=== PATIENT | male | born 1955 | race Caucasian/White ===

== ENCOUNTER 2021-05-30 11:35 | Outpatient (CLI) | payer OTHER, SELFPAY ==
[2021-05-30 18:48] LABS: Basophils Absolute Auto 0.1 K/mm3 (0.0-0.1); Basophils Percent Auto 0.6 % (0.2-1.2); Eosinophils Absolute Auto 0.2 K/mm3 (0-0.3); Eosinophils Percent Auto 2.2 % (0-4.4); Hematocrit 45.8 % (42.0-52.0); Hemoglobin 14.5 g/dL (14.0-18.0); Immature Granulocyte Absolute 0.04 K/mm3 (0.00-0.031); Immature Granulocyte Percent A 0.5 % (0-0.5); Lymphocytes Absolute Auto 1.68 K/mm3 (0.9-3.2); Lymphocytes Percent Auto 19.7 % (18.3-44.2); Mean Corpuscular HGB Conc 31.7 g/dl (32-36); Mean Corpuscular Hemoglobin 29.2 pg (26-34); Mean Corpuscular Volume 92.2 fl (80-100); Mean Platelet Volume 9.9 fl (7.4-10.4); Monocytes Absolute Auto 0.6 K/mm3 (0.1-0.6); Monocytes Percent Auto 7.4 % (2.6-8.5); Neutrophils Absolute Auto 5.9 K/mm3 (1.3-6.7); Neutrophils Percent Auto 69.6 % (45.5-73.1); Platelet Count Result 291 k/mm3 (150-375); Red Blood Count 4.97 M/mm3 (4.6-6.20); Red Cell Distribution Width 17.3 % (11.5-14.5); White Blood Count 8.5 K/mm3 (4.5-10.0)
[2021-05-30 20:15] LABS: Alanine Aminotransferase 23 U/L (4-50); Albumin Level 4.1 g/dL (3.5-5.1); Alkaline Phosphatase 98 U/L (38-126); Anion Gap 8 mmol/L (8-16); Aspartate Amino Transferase 23 U/L (17-59); Bilirubin,Total 0.5 mg/dL (0.2-1.3); Blood Urea Nitrogen 15 mg/dL (9-20); Calcium 9.6 mg/dL (8.4-10.2); Carbon Dioxide 25 mmol/L (22-30); Chloride 108 mmol/L (98-107); Cholesterol 157 mg/dL (0-200); Estimated Glomerular Filt Rate > 60; Glucose 119 mg/dL (65-110); HDL Direct 47 mg/dL; Potassium 4.5 mmol/L (3.4-5.0); Sodium 141 mmol/L (137-145); Triglycerides 99 mg/dL (<150)
[2021-05-30 20:22] LABS: LDL Cholesterol Direct 80 mg/dL
[2021-05-30 20:38] LABS: Prostate Specific Antigen 0.3 ng/mL (< OR = 4.0)
[2021-05-30 22:03] LABS: Hemoglobin A1C 5.9 % (<5.7)
== END 2021-05-30 11:36 | disposition home or self-care (01) ==
LOC: ANHBWCLAB 11:37
PROVIDERS: PCP Family Medicine; Visit Provider Family Medicine
DX: G47.33 Obstructive sleep apnea (adult) (pediatric) (principal); R26.89 Other abnormalities of gait and mobility; J44.9 Chronic obstructive pulmonary disease, unspecified; R42 Dizziness and giddiness
CPT/HCPCS: 36415; 80053; 80061; 83036; 84153; 85025; G0103

== ENCOUNTER 2021-06-20 10:42 | Outpatient (CLI) | payer OTHER, SELFPAY ==
--- NOTE | ~2021-06-20 | CT_ITS ---
EXAMINATION: CT brain wo con DATE: 06/20/2021 11:27 INDICATION: Unspecified fall, initial encounter. Headache and dizziness. TECHNIQUE: Computed tomography (CT) of the head was performed without intravenous contrast. The mA wa s adjusted according to patient size. Iterative reconstruction technique was employed. The dose-lengt h product was 681.00 mGy-cm. COMPARISON: None FINDINGS: There is no intracranial hemorrhage, acute infarction, or abnormal intracranial mass lesion . The ventricles are normal in size. There are likely changes of ocular lens replacement surgeries. T here is mild mucosal thickening in the ethmoid sinuses. The mastoid air cells are normal. IMPRESSION: 1. Normal brain. Reviewed, dictated and finalized at location A. IMPRESSION: 1. Normal brain.
== END 2021-06-20 10:43 | disposition home or self-care (01) ==
LOC: ANHIMG 10:45
PROVIDERS: PCP Family Medicine; Visit Provider Family Medicine
DX: R42 Dizziness and giddiness (principal); G47.33 Obstructive sleep apnea (adult) (pediatric); J44.9 Chronic obstructive pulmonary disease, unspecified; Z00.00 Encounter for general adult medical examination without abnormal findings; R26.89 Other abnormalities of gait and mobility
CPT/HCPCS: 70450

== ENCOUNTER 2021-08-28 09:05 | Outpatient (CLI) | payer OTHER, SELFPAY ==
--- NOTE | 2021-08-28 12:54 | WPDPFTINT ---
PFT Procedure Performed PFT Procedure Performed Spirometry with Pre/Post Bronchodilator Plethysmography (Lung Vol) Diffusing Cap (DLCO) Flow Vol Loop PFT Interpretation This is a pulmonary function test with pre and post-bronchodilator spirometry, plethysmography and diffusing capacity. The test was performed and results interpreted in accordance with the 2019 and 2005 ATS/ERS Task Force guidelines respectively using the Global Lung Function Initiative-2012 reference equations. Patient demonstrated good effort and cooperation. Reproducibility criteria were met. The quality of the pre bronchodilator spirometry maneuver was Grade A and post bronchodilator spirometry maneuver was Grade A. Findings: Spirometry: the contour the inspiratory and expiratory flow tracing are normal. The pre bronchodilator FVC is 4.20 L, 69% predicted. The pre bronchodilator FEV1 is 3.19 L, 70% predicted. The FEV1: FVC ratio 76%. Post bronchodilator FVC is 4.46 L, representing a 6% increase. The post bronchodilator FEV1 is 3.19 L, representing no change. The post bronchodilator FEV1: FVC ratio 71%. Plethysmography: The total lung capacity is 6.62 L, 75% predicted. The functional residual capacity is 2.83 L, 59% predicted. The residual volume is 2.20 L, 78% predicted. Diffusing capacity: The absolute diffusion capacity is 17.6, 56% predicted. The diffusing capacity corrected for alveolar volume is 3.24, 89% predicted. Impression: There is a mild restrictive ventilatory abnormality. The spirometry is normal without evidence of an obstructive abnormality. There is no significant improvement after inhaling a single dose of albuterol. The absolute diffusing capacity is moderately decreased and normalizes when corrected for alveolar volume. There are no prior studies for comparison
--- NOTE | 2021-08-28 12:56 | WPDSIXMINUTE ---
Six Minute Walk Procedure Procedure Performed Pulmonary Stress Test (6 min walk) Six Minute Walk This is a 6 minute walk test. The test was performed and interpreted in accordance with the 2014 ERS/ATS task force guidelines. Findings: The patient's resting room air oxygen saturation measured by pulse oximetry was 95% and her heart rate was 84 bpm. Patient ambulated for 366 meters and oxygen saturation remained 94 to 96%. Heart rate at the end of the study was 95 bpm. The patient did not qualify for supplemental oxygen at rest or with ambulation. There are no prior studies for comparison.
== END 2021-08-28 09:06 | disposition home or self-care (01) ==
LOC: ANHPFT 09:08
PROVIDERS: PCP Family Medicine; Visit Provider Internal Medicine Pulmonary Disease
DX: G47.34 Idiopathic sleep related nonobstructive alveolar hypoventilation (principal); J44.9 Chronic obstructive pulmonary disease, unspecified
CPT/HCPCS: 94060; 94200; 94618; 94726; 94729

== ENCOUNTER 2022-01-09 09:34 | Outpatient (CLI) | payer OTHER, SELFPAY ==
--- NOTE | ~2022-01-09 | CT_ITS ---
EXAMINATION: CT lumbar spine w con EXAM DATE: 01/09/2022 10:15 INDICATION: Low back pain. TECHNIQUE: Spiral CT lumbar spine w con was performed following intravenous injection of 100 mL Omnip aque 350 (the same injection used with cervical CT obtained at same time). Axial, coronal and sagitta l images were reviewed. The dose-length product (DLP) for this examination was 984.20 mGy-cm. The e xposure was tailored according to patient size (auto mA exposure control), and iterative reconstructi on (ASIR) was used as additional dose reduction technique. There is no prior study for comparison. FINDINGS: There are no acute fractures identified. There is mild to moderate disc disease L-1-2, mil d at the other lumbar levels. There is 2 mm anterolisthesis L3 on L4. The vertebral bodies are otherw ise aligned. There are no acute fractures identified. Minimal lumbar levocurvature. Mild abdominal ao rtic ectasia. There are no osteoblastic or osteolytic lesions identified. Intact sacroiliac joints. Level by level evaluation: T12-L1: There is a minimal diffuse disc bulge. Facet arthropathy: Mild. Neural foraminal stenosis: No stenosis. Central canal stenosis: No stenosis. L1-L2: There is a mild to moderate diffuse disc bulge. Facet arthropathy: Mild. Neural foraminal stenosis: No stenosis. Central canal stenosis: No stenosis. L2-L3: There is a mild diffuse disc bulge. Facet arthropathy: Mild to moderate. Neural foraminal stenosis: No stenosis. Central canal stenosis: No stenosis. L3-L4: There is a mild diffuse disc bulge. Facet arthropathy: Moderate to severe. Neural foraminal stenosis: Mild to moderate left, mild right. Central canal stenosis: Mild to moderate. L4-L5: There is a mild diffuse disc bulge. Facet arthropathy: Moderate. Neural foraminal stenosis: Mild to moderate bilateral. Central canal stenosis: Mild to moderate. L5-S1: There is a mild diffuse disc bulge. Facet arthropathy: Mild to moderate. Neural foraminal stenosis: No stenosis. Central canal stenosis: No stenosis. IMPRESSION: 1. Mild L3-4 moderate to severe disc disease. 2. Otherwise overall mild to moderate lumbar spondylosis. 3. No acute findings. Reviewed, dictated and finalized at location B.
--- NOTE | ~2022-01-09 | CT_ITS ---
. EXAMINATION: CT cervical spine w con DATE: 01/09/2022 10:16 INDICATION: Cervical disc degeneration without myelopathy or radiculopathy. TECHNIQUE: Computed tomography (CT) of the cervical spine was performed with 100 mL Omnipaque 350 int ravenous contrast. Automated exposure control and iterative reconstruction technique were employed. T he dose-length product was 475.75 mGy-cm. COMPARISON: None FINDINGS: There is mild scarring at the lung apices. There is 6 degrees dextrocurvature of cervical t horacic spine. There is 2 mm retrolisthesis of C3 on C4. There is kyphosis at C5-C6. There are change s of anterior fusion procedure from C5 to C7 with interbody bone graft and anterior plate and screws. There is a benign bone island in T1 vertebral body. There is an implant at the right C5-C6 facet americo nt with ankylosis of the joint. There is an implant in the left C5 lateral mass with ankylosis of the C5-C6 facet joint. There is severely decreased disc height at C2-C3 and C3-C4 and moderately decreas ed disc height at C4-C5. The following disc levels are specifically discussed: C2-C3: There is severe bilateral uncovertebral joint osteoarthritis. There is moderate right and mild left facet joint osteoarthritis. There is moderate right and mild left neural foraminal stenosis. Th ere is mild central canal stenosis. C3-C4: There is moderate right and severe left uncovertebral joint osteoarthritis. There is mild late ral facet joint osteoarthritis. There is mild right and moderate left neural foraminal stenosis. Ther e is mild central canal stenosis. C4-C5: There is severe bilateral uncovertebral joint osteoarthritis. There is mild bilateral facet leigh int osteoarthritis. There is moderate right and mild left neural foraminal stenosis. There is mild ce ntral canal stenosis. C5-C6: There is no uncovertebral joint hypertrophy. There is no facet joint hypertrophy. There is no neural foraminal stenosis. There is no central canal stenosis. C6-C7: There is moderate bilateral uncovertebral joint hypertrophy. There is mild bilateral facet americo nt osteoarthritis. There is mild bilateral neural foraminal stenosis. There is mild central canal rosemary nosis. C7-T1: There is mild bilateral uncovertebral joint osteoarthritis. There is moderate right and severe left facet joint osteoarthritis. There is mild left neural foraminal stenosis. There is no central c anal stenosis. IMPRESSION: 1. Severe cervical spondylosis. 2. Anterior fusion procedure from C5 to C7. Reviewed, dictated and finalized at location A.
--- NOTE | ~2022-01-09 | XR_ITS ---
XR lumbar spine 2-3V DATE: 01/09/2022 09:58 INDICATION: Back pain. Degenerative disc. TECHNIQUE: AP, lateral, coned lateral lumbosacral views COMPARISON: None FINDINGS: There is moderately severe degenerative disease at L1-2. There is mild degenerative disease at L2-3 and L3-4. There is minimal anterolisthesis at L3-4. No lumbar spine fracture or bone destruction is evident. The lumbar pedicles are intact. The sacroiliac joints are normal. Surgical clips, right upper quadrant, likely due to cholecystectomy. Prominent amount of fecal material in the colon. IMPRESSION: Moderately severe degenerative disc disease at L1 to, mild degenerative disc disease at L 2-3 and L3-4 Minimal anterolisthesis at L3-4 Reviewed, dictated and finalized at location A. IMPRESSION: Moderately severe degenerative disc disease at L1 to, mild degenera tive disc disease at L2-3 and L3-4 Minimal anterolisthesis at L3-4
--- NOTE | ~2022-01-09 | XR_ITS ---
EXAMINATION: XR_CERV2-3V_CR DATE: 01/09/2022 09:58 INDICATION: Cervical spinal stenosis. Posterior neck pain. TECHNIQUE: 3 views of cervical spine were obtained. COMPARISON: CT cervical spine 01/09/2022 FINDINGS: There is 2 mm retrolisthesis of C3 on C4 and C4 on C5. There is focal kyphosis at C5-C6. Th ere are changes of anterior fusion procedure from C5 to C7 with interbody bone graft and anterior krista te and screws. There is an implant in right C5-C6 facet joint . There is an implant in left C5 latera l mass. There is severely decreased disc height at C2-C3 and C3-C4 and moderately decreased disc heig ht at C4-C5. There is multilevel mild facet joint osteoarthritis. There is mild central canal stenosi s at C3-C4 and C4-C5 and C6-C7. No prevertebral soft tissue swelling. IMPRESSION: 1. Severe cervical spondylosis. 2. Anterior fusion procedure from C5 to C7. Reviewed, dictated and finalized at location A.
[2022-01-09 10:06] LABS: Estimated Glomerular Filt Rate > 60
== END 2022-01-09 09:35 | disposition home or self-care (01) ==
LOC: ANHIMG 09:39
PROVIDERS: PCP Family Medicine
DX: M50.321 Other cervical disc degeneration at C4-C5 level (principal); M47.812 Spondylosis without myelopathy or radiculopathy, cervical region; M48.02 Spinal stenosis, cervical region; M51.36 Other intervertebral disc degeneration, lumbar region; M47.816 Spondylosis without myelopathy or radiculopathy, lumbar region; M51.37 Other intervertebral disc degeneration, lumbosacral region; Z98.1 Arthrodesis status
CPT/HCPCS: 36415; 72040; 72100; 72126; 72132; 74019; 83036; Q9967

== ENCOUNTER 2022-01-09 14:12 | Outpatient (CLI) | payer OTHER, SELFPAY ==
--- NOTE | ~2022-01-09 | XR_ITS ---
XR abdomen obstructive series DATE: 01/09/2022 14:30 INDICATION: Constipation TECHNIQUE: Supine and upright AP views COMPARISON: None FINDINGS: There is bilateral excretion of contrast material by Sarah the kidneys, without hydronephrosi s. The renal collecting systems, ureters and urinary bladder appear normal. There is a prominent amount of fecal material within the colon. No bowel obstruction is noted. The psoas shadows are intact. No visceromegaly is evident. Surgical clips, right upper quadrant, consistent with cholecystectomy. Cardiomegaly. Right atrial and ventricular pacemaker leads. IMPRESSION: Prominent amount fecal material in the colon; no evidence of bowel obstruction Reviewed, dictated and finalized at Location A. Reviewed, dictated and finalized at location A.
[2022-01-09 19:58] LABS: Hemoglobin A1C 5.6 % (<5.7)
== END 2022-01-09 14:13 | disposition home or self-care (01) ==
LOC: ANHBWCLAB 14:13
PROVIDERS: PCP Family Medicine; Visit Provider Family Medicine
DX: R73.03 Prediabetes (principal); K59.00 Constipation, unspecified
CPT/HCPCS: 36415; 74019; 83036

== ENCOUNTER 2022-03-17 08:21 | Outpatient (CLI) | payer OTHER, SELFPAY ==
--- NOTE | 2022-03-17 13:14 | WPDSIXMINUTE ---
Six Minute Walk Procedure Procedure Performed Pulmonary Stress Test (6 min walk) Six Minute Walk Six Minute Walk: This 6 minute walk test was carried out with the patient breathing ambient air. The pre walk oxyhemoglobin saturation was 94%. The patient walked over a 213 m with no pauses during testing. During the walk the oxyhemoglobin saturation remained 92% or higher. The perceived dyspnea was 3 on the Viji scale at baseline and increased to 4 at the end of the test. Impression: No evidence of oxyhemoglobin desaturation on this testing.
== END 2022-03-17 08:22 | disposition home or self-care (01) ==
LOC: ANHPFT 08:22
PROVIDERS: PCP Family Medicine; Visit Provider Physician Assistant
DX: J44.9 Chronic obstructive pulmonary disease, unspecified (principal); R06.02 Shortness of breath
CPT/HCPCS: 94618

== ENCOUNTER 2022-04-10 13:37 | Outpatient (CLI) | payer OTHER, SELFPAY | END 2022-04-10 13:38 | disposition home or self-care (01) | LOC: ANHBWCLAB 13:38 | PROVIDERS: PCP Family Medicine; Visit Provider Family Medicine | DX: K21.9 Gastro-esophageal reflux disease without esophagitis (principal) | CPT/HCPCS: 36415; 82607 ==

== ENCOUNTER 2022-04-13 20:36 | Emergency (ER) | payer OTHER, SELFPAY ==
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
[2022-04-13 20:45] VITALS: BP 137/82; PULSE 64; RESP 18; TEMP 36.5; O2SAT 95
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
[2022-04-14] MEDS: HYDROcodone/acetaminophen (*CRX) 5-325 MG TABLET 1 TAB PO
[2022-04-14 00:36] VITALS: BP 128/99; PULSE 73; RESP 18; O2SAT 94
== END 2022-04-14 00:27 | disposition home or self-care (01) ==
PROVIDERS: Emergency Provider Emergency Medicine; PCP Family Medicine
DX: S16.1XXA Strain of muscle, fascia and tendon at neck level, initial encounter (principal); I25.10 Atherosclerotic heart disease of native coronary artery without angina pectoris; J44.9 Chronic obstructive pulmonary disease, unspecified; Z86.718 Personal history of other venous thrombosis and embolism; E78.5 Hyperlipidemia, unspecified; R73.03 Prediabetes; Z95.0 Presence of cardiac pacemaker; Z98.1 Arthrodesis status; M50.30 Other cervical disc degeneration, unspecified cervical region; M51.36 Other intervertebral disc degeneration, lumbar region; V49.50XA Passenger injured in collision with unspecified motor vehicles in traffic accident, initial encounter
CPT/HCPCS: 72125; 72128; 72131; 99284; A9270; L0140

== ENCOUNTER 2022-05-15 12:08 | Outpatient (CLI) | payer OTHER, SELFPAY ==
[2022-05-15 19:06] LABS: Add Urine Microscopic? YES; Appearance Urine Clear (Clear); Bilirubin Urine Negative (Negative); Blood Urine Negative (Negative); Color Urine Yellow (Yellow); Glucose Urine UA Negative (Negative); Ketones Urine Negative (Negative); Leukocyte Esterase Ur Trace LEU/UL (NEGATIVE); Nitrate Urine Negative (Negative); Protein Urine Negative (Negative); Specific Grav Ur 1.025 (1.001-1.035); Urobilinogen Urine 0.2 mg/dL (<2.0)
[2022-05-15 19:13] LABS: Mucus Urine Few /lpf; Squamous Epithelial Cell Urine Rare /hpf (Few)
[2022-05-15 19:14] LABS: Basophils Absolute Auto 0.1 K/mm3 (0.0-0.1); Basophils Percent Auto 0.5 % (0.2-1.2); Eosinophils Absolute Auto 0.2 K/mm3 (0-0.3); Eosinophils Percent Auto 1.4 % (0-4.4); Hemoglobin 16.2 g/dL (14.0-18.0); Immature Granulocyte Absolute 0.06 K/mm3 (0.00-0.031); Immature Granulocyte Percent A 0.5 % (0-0.5); Lymphocytes Absolute Auto 2.82 K/mm3 (0.9-3.2); Lymphocytes Percent Auto 22.3 % (18.3-44.2); Mean Corpuscular HGB Conc 31.8 g/dl (32-36); Mean Corpuscular Hemoglobin 30.9 pg (26-34); Mean Corpuscular Volume 97.3 fl (80-100); Mean Platelet Volume 9.2 fl (7.4-10.4); Monocytes Absolute Auto 0.9 K/mm3 (0.1-0.6); Neutrophils Absolute Auto 8.6 K/mm3 (1.3-6.7); Neutrophils Percent Auto 68.3 % (45.5-73.1); Platelet Count Result 251 k/mm3 (150-375); Red Blood Count 5.24 M/mm3 (4.6-6.20); Red Cell Distribution Width 14.8 % (11.5-14.5); White Blood Count 12.6 K/mm3 (4.5-10.0)
[2022-05-15 19:37] LABS: Alanine Aminotransferase 27 U/L (6-50); Alkaline Phosphatase 120 U/L (38-126); Anion Gap 5 mmol/L (8-16); Aspartate Amino Transferase 77 U/L (17-59); Bilirubin,Total 0.6 mg/dL (0.2-1.3); Blood Urea Nitrogen 15 mg/dL (9-20); Calcium 9.3 mg/dL (8.4-10.2); Carbon Dioxide 32 mmol/L (22-30); Chloride 100 mmol/L (98-107); Cholesterol 137 mg/dL (0-200); Estimated Glomerular Filt Rate > 60; Glucose 80 mg/dL (65-110); HDL Direct 38 mg/dL; Potassium 4.3 mmol/L (3.4-5.0); Sodium 137 mmol/L (137-145); Triglycerides 160 mg/dL (<150)
[2022-05-15 19:50] LABS: LDL Cholesterol Direct 60 mg/dL
[2022-05-15 20:09] LABS: Prostate Specific Antigen 0.5 ng/mL (< OR = 4.0)
== END 2022-05-15 12:09 | disposition home or self-care (01) ==
LOC: ANHBWCLAB 12:09
PROVIDERS: PCP Family Medicine; Visit Provider Family Medicine
DX: Z12.5 Encounter for screening for malignant neoplasm of prostate (principal); R42 Dizziness and giddiness; R26.89 Other abnormalities of gait and mobility
CPT/HCPCS: 36415; 80053; 80061; 81001; 84153; 85025; G0103

== ENCOUNTER → 2022-06-11 16:24 | Outpatient (CLI) | payer OTHER, SELFPAY ==
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
== END ==
PROVIDERS: PCP Family Medicine; Visit Provider Family Medicine
DX: R07.81 Pleurodynia (principal); M54.6 Pain in thoracic spine; S22.32XA Fracture of one rib, left side, initial encounter for closed fracture; J90 Pleural effusion, not elsewhere classified; M85.88 Other specified disorders of bone density and structure, other site
CPT/HCPCS: 71110; 72072

== ENCOUNTER 2022-06-11 17:23 | Outpatient (CLI) | payer OTHER, SELFPAY ==
--- NOTE | ~2022-06-11 | CT_ITS ---
EXAMINATION: CT brain wo con DATE: 06/11/2022 17:42 INDICATION: possible head trauma, severe headache . TECHNIQUE: Computed tomography (CT) of the head was performed without intravenous contrast. The mA wa s adjusted according to patient size. Iterative reconstruction technique was employed. The dose-lengt h product was 756.67 mGy-cm. COMPARISON: 06/20/2021 FINDINGS: No acute intracranial hemorrhage or extra-axial fluid collection. No hydrocephalus, mass, or herniation. No acute ischemic infarct. Unremarkable dural venous sinus attenuation. No acute osseous abnormality. Trace right mastoid fluid, otherwise the aerated spaces are clear. Empty sella. Mild atrophy, most pronounced about the cerebellum. Bilateral lens replacements IMPRESSION: No acute intracranial process. Reviewed, dictated and finalized at location K.
== END 2022-06-11 17:24 | disposition home or self-care (01) ==
LOC: ANHIMG 17:29
PROVIDERS: PCP Family Medicine; Visit Provider Family Medicine
DX: R51.9 Headache, unspecified (principal); R29.6 Repeated falls; R42 Dizziness and giddiness
CPT/HCPCS: 70450; 71110; 72072

== ENCOUNTER 2022-06-24 09:00 | Outpatient (CLI) | payer OTHER, SELFPAY ==
--- NOTE | ~2022-06-24 | CT_ITS ---
EXAMINATION: CT lung screening DATE: 06/24/2022 09:25 INDICATION: Personal history of nicotine dependence, current smoker with 45 pack year history TECHNIQUE: Computed tomography (CT) of the chest was performed without intravenous contrast. The dose -length product (DLP) was 173.47 mGy-cm. Automated exposure control and iterative reconstruction tech Anaphore were employed. COMPARISON: 04/13/2022 FINDINGS: There are scattered small pulmonary nodules which measure up to 3 mm. There is mild atelect asis in the left lower lobe. No pleural effusion or pneumothorax. A dual-lead cardiac pacemaker of th e left chest wall ends with leads in expected locations. No pathologically enlarged thoracic lymph no michelle are identified. The heart size is normal. The gallbladder is surgically absent. There are partial ly imaged changes of anterior fusion in the lower cervical spine. There is mild thoracic spondylosis. IMPRESSION: 1. Lung-RADS category 2: Benign appearance or behavior. Continue annual screening with noncontrast lo w-dose chest CT in 12 months. Reviewed, dictated and finalized at location B. IMPRESSION: 1. Lung-RADS category 2: Benign appearance or behavior. Continue annual screeni ng with noncontrast low-dose chest CT in 12 months.
== END 2022-06-24 09:01 | disposition home or self-care (01) ==
LOC: ANHIMG 09:01
PROVIDERS: PCP Family Medicine; Visit Provider Internal Medicine Pulmonary Disease
DX: Z12.2 Encounter for screening for malignant neoplasm of respiratory organs (principal); F17.210 Nicotine dependence, cigarettes, uncomplicated
CPT/HCPCS: 71271

== ENCOUNTER 2022-07-16 16:54 | Emergency (ER) | payer OTHER, SELFPAY ==
--- NOTE | ~2022-07-16 | XR_ITS ---
EXAM: XR forearm LT 2V DATE: 07/16/2022 17:25 HISTORY: FALL TODAY, PAIN TO DISTAL FOREARM ALSO RADIATES UP ARM . COMPARISON: None available. FINDINGS: Normal mineralization. No fracture or dislocation. No lytic or blastic lesion. Joint space s are maintained. No erosion or periosteal change. Soft tissues within normal limits. IMPRESSION: No acute osseous finding left forearm. Reviewed, dictated and finalized at location K.
--- NOTE | ~2022-07-16 | XR_ITS ---
EXAM: XR wrist LT min 3V DATE: 07/16/2022 19:53 HISTORY: foosh, ttp radial . COMPARISON: X-ray forearm, same date. FINDINGS: Decreased mineralization. No fracture or dislocation. No lytic or blastic lesion. Mild sca ttered degenerative changes. No erosion or periosteal change. Soft tissues within normal limits. IMPRESSION: No acute osseous finding in the left wrist. Reviewed, dictated and finalized at location K.
[2022-07-16 17:13] VITALS: BP 136/75; PULSE 65; RESP 16; TEMP 36.9; O2SAT 99
--- NOTE | 2022-07-16 19:38 | ED.UPPEXIN ---
HPI - Extremity Injury (Upper) General Chief Complaint: Extremity Injury, Upper Stated Complaint: L wrist injury Time Seen by Provider: 07/16/22 19:15 History of Present Illness HPI narrative: Patient states he fell 2 days ago and landed on left outstretched wrist. States it has been painful on/off since then. Related Data Home Medications Medication Instructions Recorded Confirmed acetaminophen 500 mg capsule 1,000 mg PO Q6H PRN 05/30/21 02/21/22 albuterol sulfate 90 mcg/actuation 2 inh inhalation Q4H PRN 05/30/21 02/21/22 breath activated powder inhaler atorvastatin 10 mg tablet 10 mg PO DAILY 05/30/21 02/21/22 duloxetine 60 mg capsule,delayed 60 mg PO BID 05/30/21 02/21/22 release famotidine 20 mg tablet 40 mg PO DAILY 05/30/21 02/21/22 flecainide 50 mg tablet 50 mg PO Q12H 05/30/21 02/21/22 hydrocodone 10 mg-acetaminophen 1 tablet PO Q6H PRN 05/30/21 02/21/22 325 mg tablet meclizine 25 mg tablet 25 mg PO TID 05/30/21 02/21/22 naloxone 4 mg/actuation nasal 4 mg intranasal Q2M PRN 05/30/21 02/21/22 spray (Narcan) potassium chloride 20 mEq 20 meq PO DAILY 05/30/21 02/21/22 tablet,extended release(part/cryst) tiotropium bromide 18 mcg capsule 1 cap inhalation DAILY 05/30/21 02/21/22 with inhalation device (Spiriva with HandiHaler) tizanidine 4 mg tablet 4 mg PO TID 05/30/21 02/21/22 Allergies Allergy/AdvReac Type Severity Reaction Status Date / Time No Known Allergies Allergy Verified 06/13/22 13:34 Review of Systems Review of Systems: CONST: No fever. HEENT: No sore throat C/V: No chest pain RESP: No cough GI: No nausea/vomiting : No dysuria. M/S: Left wrist pain SKIN: No rash. NEURO: [No headache or focal numbness or weakness] PSYCH: [No depression] PMFSH Past Medical History Medical History Anxiety CAD (coronary artery disease) Cervicalgia COPD (chronic obstructive pulmonary disease) DVT (deep venous thrombosis) Erectile disorder due to medical condition in male HLD (hyperlipidemia) Migraine Nocturnal hypoxemia Pacemaker Prediabetes Tobacco dependence due to cigarettes Vertigo Social History Social History Smoking packs per day: 0.5 Smoking cigarettes per day: 10.0 Years smoked: 45 Smoking pack-years: 22.50 Smoking status: Current every day smoker Second hand tobacco smoke exposure: Yes Alcohol intake: never Substance use: never Exam Narrative: EXAMINATION OF ORGAN SYSTEMS/BODY AREAS: Constitutional: Vital signs per nursing GENERAL:[No acute distress, non-toxic appearing.] HEAD: Normal with no signs of head trauma. EYES: EOMI, conjunctiva normal ENT: Hearing grossly intact LUNGS: Nonlabored breathing. HEART: [Regular rate and rhythm] ABD: [Soft], nondistended EXT: Normal range of motion; some tenderness worse at left radial wrist; able to make an okay sign, scissor, fist; good cap refill and normal radial pulse SKIN: [No rashes or lesions.] NEURO: [Alert and oriented x 3. No focal sensory or strength deficits.] PSYCH: Normal affect Course Vital Signs Vital signs: Vital Signs Temperature 98.4 F 07/16/22 17:13 Pulse Rate 65 07/16/22 17:13 Respiratory Rate 16 07/16/22 17:13 Blood Pressure 136/75 07/16/22 17:13 Pulse Oximetry 99 07/16/22 17:13 Oxygen Delivery Room Air 07/16/22 17:13 Temperature 98.4 F 07/16/22 17:13 Pulse Rate 65 07/16/22 17:13 Respiratory Rate 16 07/16/22 17:13 Blood Pressure 136/75 07/16/22 17:13 Pulse Oximetry 99 07/16/22 17:13 Oxygen Delivery Room Air 07/16/22 17:13 MDM - Extremity Injury (Upper) MDM Narrative Medical decision making narrative: 66-year-old male presenting with left wrist injury, is vital signs stable, he is neurovascularly intact, with normal range of motion, forearm x-ray initially obtained in triage is unremarkable, given that his tenderness is around th
[2022-07-16 21:06] VITALS: RESP 18; O2SAT 100
== END 2022-07-16 21:09 | disposition home or self-care (01) ==
PROVIDERS: Emergency Provider Emergency Medicine; PCP Family Medicine
DX: S69.92XA Unspecified injury of left wrist, hand and finger(s), initial encounter (principal); I25.10 Atherosclerotic heart disease of native coronary artery without angina pectoris; J44.9 Chronic obstructive pulmonary disease, unspecified; E78.5 Hyperlipidemia, unspecified; R73.03 Prediabetes; Z95.0 Presence of cardiac pacemaker; Z86.718 Personal history of other venous thrombosis and embolism; F17.210 Nicotine dependence, cigarettes, uncomplicated; W19.XXXA Unspecified fall, initial encounter
CPT/HCPCS: 29125; 73090; 73110; 99283

== ENCOUNTER 2023-01-06 12:08 | Outpatient (CLI) | payer OTHER, SELFPAY ==
--- NOTE | ~2023-01-06 | XR_ITS ---
Left Hand Technique: PA, oblique, and lateral views were obtained. Clinical History: Pain Findings: No acute fracture or dislocation is seen. Osseous alignment is anatomic. Joint spaces are p reserved. Soft tissues are unremarkable. Impression: Unremarkable left hand. Reviewed, dictated and finalized at location M. Impression: Unremarkable left hand.
[2023-01-06 19:06] LABS: Basophils Absolute Auto 0.1 K/mm3 (0.0-0.1); Basophils Percent Auto 0.6 % (0.2-1.2); Eosinophils Absolute Auto 0.8 K/mm3 (0-0.3); Eosinophils Percent Auto 5.5 % (0-4.4); Hematocrit 48.8 % (42.0-52.0); Hemoglobin 15.8 g/dL (14.0-18.0); Immature Granulocyte Absolute 0.06 K/mm3 (0.00-0.031); Immature Granulocyte Percent A 0.4 % (0-0.5); Lymphocytes Absolute Auto 2.47 K/mm3 (0.9-3.2); Lymphocytes Percent Auto 17.6 % (18.3-44.2); Mean Corpuscular HGB Conc 32.4 g/dl (32-36); Mean Corpuscular Hemoglobin 31.2 pg (26-34); Mean Corpuscular Volume 96.4 fl (80-100); Mean Platelet Volume 9.5 fl (7.4-10.4); Monocytes Absolute Auto 0.8 K/mm3 (0.1-0.6); Neutrophils Absolute Auto 9.8 K/mm3 (1.3-6.7); Neutrophils Percent Auto 69.9 % (45.5-73.1); Platelet Count Result 335 k/mm3 (150-375); Red Blood Count 5.06 M/mm3 (4.6-6.20); Red Cell Distribution Width 14.3 % (11.5-14.5); White Blood Count 14.1 K/mm3 (4.5-10.0)
[2023-01-06 19:23] LABS: Alanine Aminotransferase 27 U/L (6-50); Albumin Level 4.4 g/dL (3.5-5.1); Alkaline Phosphatase 140 U/L (38-126); Anion Gap 8 mmol/L (8-16); Aspartate Amino Transferase 61 U/L (17-59); Bilirubin,Total 0.7 mg/dL (0.2-1.3); Blood Urea Nitrogen 9 mg/dL (9-20); Calcium 9.1 mg/dL (8.4-10.2); Carbon Dioxide 30 mmol/L (22-30); Chloride 99 mmol/L (98-107); Cholesterol 160 mg/dL (0-200); Estimated Glomerular Filt Rate > 60; Glucose 107 mg/dL (65-110); HDL Direct 32 mg/dL; Sodium 137 mmol/L (137-145); Triglycerides 192 mg/dL (<150)
[2023-01-06 19:35] LABS: LDL Cholesterol Direct 82 mg/dL
[2023-01-06 19:53] LABS: Prostate Specific Antigen 0.8 ng/mL (< OR = 4.0)
[2023-01-06 20:39] LABS: Hemoglobin A1C 5.5 % (<5.7)
== END 2023-01-06 12:09 | disposition home or self-care (01) ==
PROVIDERS: PCP Family Medicine; Visit Provider Family Medicine
DX: Z00.00 Encounter for general adult medical examination without abnormal findings (principal); R73.03 Prediabetes; Z12.5 Encounter for screening for malignant neoplasm of prostate
CPT/HCPCS: 36415; 73130; 80053; 80061; 83036; 84153; 85025; G0103

== ENCOUNTER 2023-01-08 08:17 | Outpatient (RCR) | payer OTHER, SELFPAY ==
--- NOTE | 2023-01-08 09:49 | OTOPDC ---
Assessment and note entered by Sage Lawson, ANDRES/Rajan, CHT Evaluation Information Diagnosis repeated falls, abnormalities of gait and mobility, RA, dizziness, polyneuropathy Subjective Information Patient referred for power w/c evaluation. Please see attached seating/mobility evaluation form for details. Assessment OT Clinical Summary Russell is unable to safely and independently ambulate household distances due to his current impairments of weakness, decreased joint motion, fatigue/shortness of breath, pain, and decreased balance which has caused him to have multiple falls per week with subsequent injuries from these falls. He has a history of chronic pain, dizziness, and neuropathy which also contribute to his frequent falls and decreased balance. He is unable to safely use an optimally fitted walker or cane due to the above deficits. An optimally fitted manual w/c is not functional due to decreased strength and endurance to self propel. A scooter is not an appropriate option because of difficulties with transfers and balance. Russell will greatly benefit from use of a power w/c with tilt to increase safety and independence with ADL participation and MRADLs. He is at risk for development of pressure sore due to inability to pressure relief independently and safely. Also due to patient's height/size, a standard power w/c would not accommodate this. Patient is willing, capable, and able to use recommended equipment. No further OT indicated. D/C services. Plan of Care OT Services Indicated No
== END 2023-01-09 08:04 | disposition home or self-care (01) ==
LOC: ANHOT 08:17
PROVIDERS: PCP Family Medicine; Visit Provider Family Medicine
DX: Z46.89 Encounter for fitting and adjustment of other specified devices (principal); R29.6 Repeated falls; R42 Dizziness and giddiness; R26.89 Other abnormalities of gait and mobility; M06.9 Rheumatoid arthritis, unspecified; G62.9 Polyneuropathy, unspecified
CPT/HCPCS: 97166

== ENCOUNTER 2023-01-21 10:50 | Outpatient (CLI) | payer OTHER, SELFPAY ==
--- NOTE | ~2023-01-21 | CT_ITS ---
EXAMINATION: CT brain wo con DATE: 01/21/2023 11:17 INDICATION: Head trauma. Patient on blood thinners. TECHNIQUE: Computed tomography (CT) of the head was performed without intravenous contrast. The dose- length product was 605.33 mGy-cm. Automated exposure control and iterative reconstruction technique w ere employed. COMPARISON: CT dated 06/11/2022 FINDINGS: There is cerebellar atrophy. No acute intracranial hemorrhage, infarction, mass or mass eff ect. No ventriculomegaly or midline shift. Basilar cisterns are patent. Paranasal sinuses and mastoid s are pneumatized. No depressed skull fractures. Midline sagittal images are unremarkable. IMPRESSION: 1. No acute intracranial abnormality. Reviewed, dictated and finalized at location B.
== END 2023-01-21 10:51 | disposition home or self-care (01) ==
PROVIDERS: PCP Family Medicine; Visit Provider Family Medicine
DX: S09.90XA Unspecified injury of head, initial encounter (principal); Z92.29 Personal history of other drug therapy
CPT/HCPCS: 70450

== ENCOUNTER 2023-02-26 14:41 | Outpatient (CLI) | payer OTHER, SELFPAY ==
--- NOTE | ~2023-02-26 | US_ITS ---
US arterial ankle brachial ind INDICATION: Claudication TECHNIQUE: Segmental pressures and plethysmographic and Doppler waveforms of the brachial and lower e xtremity arteries were obtained. COMPARISON: None. FINDINGS: Right and left brachial artery pressures of 103 mm Hg and 94 mm Hg, respectively, are concordant (nor mal difference <= 30 mmHg). The right ankle-brachial index (RYAN) is 1.4 (normal >= 0.9-1.0). The right great toe-brachial index ( TBI) is .42 (normal >= 0.60). The left RYAN is 0.58. The left TBI is 0.42. IMPRESSION: 1. Diminished bilateral toe brachial and left ankle brachial indices, consistent with peripheral myles rial disease Reviewed, dictated and finalized at location L. IMPRESSION: 1. Diminished bilateral toe brachial and left ankle brachial indices, consisten t with peripheral arterial disease
== END 2023-02-26 14:42 | disposition home or self-care (01) ==
PROVIDERS: PCP Family Medicine; Visit Provider Internal Medicine Cardiovascular Disease
DX: I73.9 Peripheral vascular disease, unspecified (principal)
CPT/HCPCS: 93922

== ENCOUNTER 2023-04-16 13:52 | Outpatient (CLI) | payer OTHER, SELFPAY ==
--- NOTE | ~2023-04-16 | XR_ITS ---
XR hip RT 2V w AP pelvis DATE: 04/16/2023 15:11 INDICATION: Right hip injury, pain TECHNIQUE: AP pelvis. AP and lateral views of right hip. COMPARISON: None FINDINGS: Surgical clips overlie the medial proximal right thigh. No pelvic fracture or bone destruction is detected. Normal alignment at the pubic symphysis and sacro iliac joints. Hip joint spaces are symmetric and relatively preserved. No fracture or dislocation, avascular necrosis or bone destruction of the right hip is detected. IMPRESSION: No fracture or dislocation or bone destruction of right hip Reviewed, dictated and finalized at location A.
--- NOTE | ~2023-04-16 | XR_ITS ---
XR lumbar spine 2-3V DATE: 04/16/2023 15:11 INDICATION: Back pain TECHNIQUE: AP, lateral, coned lateral lumbosacral views COMPARISON: 01/09/2022 lumbar spine 04/13/2022 CT thoracic lumbar FINDINGS: There is diffuse osteopenia. There is mild levoscoliosis of the lumbar spine. There is moderately severe degenerative disc disease with prominent spurring at L1-2. Is mild degener ative disc disease at L2-3 and L3-4. There is degenerative change at the apophyseal joints with associated minimal grade 1 anterolisthesis at L3-4. No fracture or bone destruction is evident. The lumbar pedicles are intact. The sacroiliac joints baljit ear normal. Clips, right upper quadrant, likely due to cholecystectomy. There is a prominent of fecal material in the right colon and transverse colon. IMPRESSION: Osteopenia Mild levoscoliosis Multilevel degenerative disc disease, most pronounced at L1-2 Reviewed, dictated and finalized at location A.
[2023-04-16 18:51] LABS: Appearance Urine Clear (Clear); Bilirubin Urine Negative (Negative); Blood Urine Negative (Negative); Color Urine Yellow (Yellow); Glucose Urine UA Negative (Negative); Ketones Urine Negative (Negative); Leukocyte Esterase Ur Negative LEU/UL (Negative); Nitrate Urine Negative (Negative); Protein Urine Negative (Negative); Specific Grav Ur 1.017 (1.001-1.035); Urobilinogen Urine 0.2 mg/dL (<2.0); pH Urine 5.5 (5.0-9.0)
[2023-04-16 19:04] LABS: Add Urine Microscopic? NO
== END 2023-04-16 13:53 | disposition home or self-care (01) ==
PROVIDERS: PCP Family Medicine; Visit Provider Nurse Practitioner Adult Health
DX: M54.9 Dorsalgia, unspecified (principal); T14.8XXA Other injury of unspecified body region, initial encounter; R31.9 Hematuria, unspecified; M85.88 Other specified disorders of bone density and structure, other site; M51.36 Other intervertebral disc degeneration, lumbar region
CPT/HCPCS: 72100; 73502; 81003

== ENCOUNTER 2023-05-13 10:13 | Outpatient (CLI) | payer OTHER, SELFPAY ==
[2023-05-13 11:36] LABS: Alanine Aminotransferase 39 U/L (6-50); Albumin Level 4.3 g/dL (3.5-5.1); Alkaline Phosphatase 126 U/L (38-126); Anion Gap 10 mmol/L (8-16); Aspartate Amino Transferase 34 U/L (17-59); Bilirubin,Total 0.4 mg/dL (0.2-1.3); Blood Urea Nitrogen 14 mg/dL (9-20); CRP 0.6 mg/dL (<1.0); Calcium 9.3 mg/dL (8.4-10.2); Carbon Dioxide 29 mmol/L (22-30); Chloride 103 mmol/L (98-107); Creatine Kinase 45 U/L (55-170); Estimated Glomerular Filt Rate > 60; Glucose 81 mg/dL (65-110); Potassium 3.7 mmol/L (3.4-5.0); Sodium 142 mmol/L (137-145); Uric Acid 6.2 mg/dL (3.5-8.5)
[2023-05-13 11:42] LABS: Hematocrit 47.1 % (42.0-52.0); Hemoglobin 15.5 g/dL (14.0-18.0); Mean Corpuscular HGB Conc 32.9 g/dl (32-36); Mean Corpuscular Hemoglobin 30.3 pg (26-34); Mean Platelet Volume 9.6 fl (7.4-10.4); Platelet Count Result 309 k/mm3 (150-375); Red Blood Count 5.12 M/mm3 (4.6-6.20); Red Cell Distribution Width 14.5 % (11.5-14.5); White Blood Count 11.7 K/mm3 (4.5-10.0)
[2023-05-13 12:43] LABS: Vitamin D 25 Hydroxy 53.2 ng/mL
[2023-05-13 13:15] LABS: Hepatitis C Virus Antibody Negative (Negative)
[2023-05-13 14:16] LABS: Erythrocyte Sedimentation Rate 15 mm/hr (0-20)
[2023-05-16 22:42] LABS: Anti Cyclic Citrullinated Pept <16 Units (<20)
[2023-05-19 20:33] LABS: Aldolase 4.3 U/L (<=8.1)
[2023-05-23 18:38] LABS: JO-1 AB <11 SI (<11); MI-2 Alpha Ab <11 SI (<11); MI-2 Beta Ab <11 SI (<11); NXP-2 AB <11 SI (<11); TIF1 Gamma Ab <11 SI (<11)
== END 2023-05-13 10:14 | disposition home or self-care (01) ==
LOC: ANHLAB 10:14
PROVIDERS: PCP Family Medicine; Visit Provider Internal Medicine
DX: M06.041 Rheumatoid arthritis without rheumatoid factor, right hand (principal); M06.042 Rheumatoid arthritis without rheumatoid factor, left hand; M79.10 Myalgia, unspecified site; M19.90 Unspecified osteoarthritis, unspecified site
CPT/HCPCS: 36415; 80053; 82085; 82306; 82550; 84182; 84550; 85027; 85652; 86038; 86140; 86200; 86803

== ENCOUNTER 2023-05-18 00:37 | Day surgery (SDC) | payer OTHER, SELFPAY ==
--- NOTE | 2023-05-08 13:55 | PC.NURSE ---
05/06/2023 late entry, Spoke with patient regarding him not being able to hold Plavix until after 07/04/[address] Chang. Pt denies any colon symptoms but does state that his dysphagia is worse, he states he has food that gets stuck at least once a week that will not pass and he has to vomit to get relief. He states this happens with most any foods he tries. He states he just doesn't know how he will be able to manage till June. I told him that if it gets stuck again not to force vomiting and to go to ED, explained his risk with being on a blood thinner etc. I did let him know I would discuss with Richelle Dupree NP whom he saw in the office for further care advice. 05/07/2023 I spoke with Richelle Dupree NP regarding this patient and explained above info. to her from pt. he spoke with Dr. Ortiz and we will cancel colonoscopy but will proceed with EGD without pt stopping his Plavix, precautions will be taken.
[2023-05-08 14:51] VITALS: BMI 27.1
--- NOTE | 2023-05-08 15:44 | PC.NURSE ---
Pt. called and pre-op interview done, explained to pt what Dr. Ortiz and Richelle discussed and that we will proceed with EGD without pt holding his plavix. Pt understands and wishes to proceed.
[2023-05-18] MEDS: LACTATED RINGERS 1,000 ML 150 ML IV CONT (10:05)
[2023-05-18 10:17] VITALS: BP 130/83; RESP 18; TEMP 36.1; O2SAT 98; BMI 25.4
--- NOTE | 2023-05-18 10:36 | WPDANESEPPF ---
Anes - Initial Pre Proc Eval Procedure: Operation Date: 05/18/23 11:00 Proposed Procedures p Esophagogastroduodenoscopy - Evert Ortiz MD Date/Time: 05/18/23 10:36 Surgeon: Evert Ortiz MD Pre Op Diagnosis: dysphagia Patient Data Age: 67 Gender: M Height: 2.01 m Weight: 102.3 kg Last Vital Signs Temp 36.1 C L 05/18/23 10:17 Resp 18 05/18/23 10:17 BP 130/83 05/18/23 10:17 Pulse Ox 98 05/18/23 10:17 O2 Del Method Room Air 05/18/23 10:17 Allergies Allergy/AdvReac Type Severity Reaction Status Date / Time No Known Allergies Allergy Verified 05/18/23 10:07 Home Medications Medication Instructions Recorded Confirmed Type acetaminophen 500 mg capsule 1,000 mg PO Q6H PRN Pain 05/30/21 05/18/23 History albuterol sulfate 90 mcg/actuation 2 inh inhalation Q4H PRN Shortness 05/30/21 05/18/23 History breath activated powder inhaler Of Breath atorvastatin 10 mg tablet 10 mg PO DAILY 05/30/21 05/18/23 History flecainide 50 mg tablet 50 mg PO Q12H 05/30/21 05/18/23 History hydrocodone 10 mg-acetaminophen 1 tablet PO Q6H PRN Pain 05/30/21 05/18/23 History 325 mg tablet meclizine 25 mg tablet 25 mg PO TID PRN Vertigo 05/30/21 05/18/23 History naloxone 4 mg/actuation nasal 4 mg intranasal Q2M PRN OVERDOSE 05/30/21 05/18/23 History spray (Narcan) potassium chloride 20 mEq 20 meq PO DAILY 05/30/21 05/18/23 History tablet,extended release(part/cryst) tiotropium bromide 18 mcg capsule 1 cap inhalation DAILY 05/30/21 05/18/23 History with inhalation device (Spiriva with HandiHaler) tizanidine 4 mg tablet 4 mg PO HS PRN Insomnia 05/30/21 05/18/23 History albuterol sulfate 2.5 mg/3 mL 2.5 mg (3 mL) inhalation Q6H PRN 02/21/22 05/18/23 Rx (0.083 %) solution for nebulization shortness of breath or wheezing #180 mL clonazepam 1 mg tablet (Klonopin) 1 mg PO TID #90 tabs 12/26/22 04/22/23 Rx azelastine 137 mcg (0.1 %) nasal 1 spray intranasal Q12H #30 mL 01/27/23 05/18/23 Rx spray aerosol budesonide-formoterol HFA 160 2 puff inhalation Q12H #10.2 grams 01/27/23 05/18/23 Rx mcg-4.5 mcg/actuation aerosol inhaler (Symbicort) loratadine 10 mg tablet (Allergy 10 mg PO DAILY 30 days #30 tabs 02/24/23 05/18/23 Rx Relief (loratadine)) pantoprazole 40 mg tablet,delayed 40 mg PO BID #180 tabs 03/02/23 05/18/23 Rx release metoprolol tartrate 25 mg tablet 25 mg PO BID #180 tabs 03/26/23 05/18/23 Rx lactulose 20 gram/30 mL oral 20 g (30 mL) PO BID 30 days #1,800 04/22/23 05/18/23 Rx solution mL naloxegol 12.5 mg tablet (Movantik) 12.5 mg PO QAM #30 tabs 04/22/23 05/18/23 Rx clonazepam 1 mg tablet 1 mg PO TID #90 tabs 05/03/23 05/18/23 Rx aspirin 81 mg chewable tablet 81 mg PO DAILY 05/08/23 05/18/23 History clopidogrel 75 mg tablet 75 mg PO DAILY 05/08/23 05/18/23 History duloxetine 60 mg capsule,delayed 120 mg PO DAILY 05/08/23 05/18/23 History release ergocalciferol (vitamin D2) 1,250 50,000 unit PO WEEKLY 05/08/23 05/18/23 History mcg (50,000 unit) capsule fluticasone propionate 50 1 spray intranasal DAILY 05/08/23 05/18/23 History mcg/actuation nasal spray,suspension folic acid 1 mg tablet 1 mg PO DAILY 05/08/23 05/18/23 History losartan 50 mg tablet 25 mg PO BID 05/08/23 05/18/23 History nystatin 100,000 unit/mL oral 4 ml PO QID PRN THRUSH 05/08/23 05/18/23 History suspension meloxicam 7.5 mg tablet 7.5 mg PO DAILY #30 tabs 05/12/23 05/18/23 Rx Patient hx anesthesia problems: none Family hx anesthesia problems: other (mother slow to awaken) Results Review: All pre-operative results and documents have been reviewed as part of the pre-operative evaluation. [facility] Past Medical History Medical History Afib Anxiety CAD (coronary artery disease) Cervicalgia COPD (chronic obstructive pulmonary disease) Decubitus ulcer of dorsum of foot DVT (deep venous thrombosis) Dys
--- NOTE | 2023-05-18 10:49 | WPDHPUPDATE1 ---
History and Physical Update Update Date/Time: 05/18/23 10:49 History and Physical has been reviewed, including an updated exam of the patient. There are NO changes in the patient's condition. Risks, benefits, and alternatives have been discussed and questions answered. Patient agrees to proceed with procedure.
[2023-05-18] MEDS: BENZOCAINE (*SP) 60 ML SPRAY CAN (HURRICAINE) 1 SPRAY MUCOUS MEM (11:04)
[2023-05-18 11:14] VITALS: BP 103/74; PULSE 60; RESP 18; O2SAT 96
[2023-05-18 11:24] VITALS: BP 109/76; PULSE 62; RESP 18; O2SAT 95
[2023-05-18 11:34] VITALS: BP 127/81; PULSE 64; RESP 18; O2SAT 97
== END 2023-05-18 11:48 | disposition home or self-care (01) ==
PROVIDERS: PCP Family Medicine; Visit Provider Internal Medicine Gastroenterology
PROC: 0DJ08ZZ Inspection of Upper Intestinal Tract, Via Natural or Artificial Opening Endoscopic (ICD-10-PCS; CPT 43235; principal; 2023-05-18 11:00)
DX: K21.9 Gastro-esophageal reflux disease without esophagitis (principal); R13.10 Dysphagia, unspecified; R19.8 Other specified symptoms and signs involving the digestive system and abdomen; Z86.010 Personal history of colon polyps; L89.899 Pressure ulcer of other site, unspecified stage; K29.70 Gastritis, unspecified, without bleeding; Z85.818 Personal history of malignant neoplasm of other sites of lip, oral cavity, and pharynx; K59.03 Drug induced constipation; K64.4 Residual hemorrhoidal skin tags; I25.10 Atherosclerotic heart disease of native coronary artery without angina pectoris; I48.91 Unspecified atrial fibrillation; F41.9 Anxiety disorder, unspecified; J44.9 Chronic obstructive pulmonary disease, unspecified; E78.5 Hyperlipidemia, unspecified; R09.02 Hypoxemia; R73.03 Prediabetes; F17.210 Nicotine dependence, cigarettes, uncomplicated; Z79.51 Long term (current) use of inhaled steroids; Z79.891 Long term (current) use of opiate analgesic; T40.2X5A Adverse effect of other opioids, initial encounter; Z95.0 Presence of cardiac pacemaker; Z95.818 Presence of other cardiac implants and grafts; Z79.82 Long term (current) use of aspirin; Z86.718 Personal history of other venous thrombosis and embolism
CPT/HCPCS: 43235; J2704; J7120

== ENCOUNTER 2023-06-03 07:29 | Outpatient (RCR) | payer OTHER, SELFPAY ==
[2023-04-28 12:09] VITALS: BMI 26.6
--- NOTE | 2023-06-16 07:48 | PCWOUND ---
Patient called and left message to cancel his appointment for 06/17/23 stating wound to foot is healed.
== END 2023-07-13 09:05 | disposition home or self-care (01) ==
LOC: ANHWOC 07:29
PROVIDERS: PCP Family Medicine; Visit Provider Nurse Practitioner Adult Health
DX: S91.302D Unspecified open wound, left foot, subsequent encounter (principal)
CPT/HCPCS: 99213; 99214; G0463

== ENCOUNTER 2023-08-04 15:06 | Outpatient (CLI) | payer OTHER, SELFPAY ==
--- NOTE | ~2023-08-04 | CT_ITS ---
EXAMINATION: CT lung screening DATE: 08/04/2023 15:39 INDICATION: Personal history of nicotine dependence TECHNIQUE: Computed tomography (CT) of the chest was performed without intravenous contrast. The dose -length product was 174.39 mGy-cm. Automated exposure control and iterative reconstruction technique were employed. COMPARISON: CT dated 06/24/2022 FINDINGS: Pacemaker leads are present. There is mild atherosclerosis of the aorta and coronary arteri es. Heart size normal. Status post cholecystectomy. No thoracic lymphadenopathy. Stable small bilater al pulmonary nodules measuring 3 mm or less, likely benign. There is bilateral lower lobe atelectasis /scarring. No endobronchial lesions. No pneumothorax. Mild thoracic spondylosis. No focal lytic or bl astic lesions. IMPRESSION: 1. Lung-RADS category 2: Benign appearance or behavior. Continue annual screening with noncontrast lo w-dose chest CT in 12 months. Reviewed, dictated and finalized at location L. IMPRESSION: 1. Lung-RADS category 2: Benign appearance or behavior. Continue annual screeni ng with noncontrast low-dose chest CT in 12 months.
== END 2023-08-04 15:07 | disposition home or self-care (01) ==
PROVIDERS: PCP Family Medicine; Visit Provider Physician Assistant
DX: Z12.2 Encounter for screening for malignant neoplasm of respiratory organs (principal); Z87.891 Personal history of nicotine dependence
CPT/HCPCS: 71271

== ENCOUNTER 2023-08-31 13:04 | Emergency (ER) | payer OTHER, SELFPAY ==
--- NOTE | ~2023-08-31 | CT_ITS ---
EXAMINATION: CT diagnostic chest wo con DATE: 08/31/2023 14:32 INDICATION: Left-sided rib pain after recent fall TECHNIQUE: Computed tomography (CT) of the chest was performed without intravenous contrast. The dose -length product was 309.48 mGy-cm. Automated exposure control and iterative reconstruction technique were employed. COMPARISON: None FINDINGS: There is a left sixth rib deformity posteriorly which may represent remote posttraumatic ch yandel or postsurgical change. There is surgical fusion changes of the lower cervical spine, partially visualized. Bipolar pacemaker leads are present. No endobronchial lesions. There is dependent atelect asis with more focal consolidation in the left lower lobe. Cannot exclude superimposed pneumonia. No endobronchial lesions. No pneumothorax. Stable small pulmonary nodules measuring 3 mm or less, likely benign. IMPRESSION: 1. Bibasilar dependent atelectasis with possible superimposed pneumonia in the left lower lobe. 2: Deformity left sixth rib posteriorly which may represent postsurgical or remote posttraumatic pfeiffer ge. Reviewed, dictated and finalized at location B. DISTRIBUTOR IMPRESSION: 1. Bibasilar dependent atelectasis with possible superimposed pneumonia in the left lower lobe. 2: Deformity left sixth rib posteriorly which may represent postsurgical or rem ote posttraumatic change.
--- NOTE | ~2023-08-31 | CT_ITS ---
EXAMINATION: CT brain wo con DATE: 08/31/2023 14:32 INDICATION: Head injury. TECHNIQUE: Computed tomography (CT) of the head was performed without intravenous contrast. The mA wa s adjusted according to patient size. Iterative reconstruction technique was employed. The dose-lengt h product was 681.00 mGy-cm. COMPARISON: Head CT 01/21/2023 FINDINGS: There is no intracranial hemorrhage, acute infarction, or abnormal intracranial mass lesion . The ventricles are normal in size. There is mild mucosal thickening in the paranasal sinuses. There are likely changes of ocular lens replacement surgeries. The mastoid air cells are normal. IMPRESSION: 1. Normal brain. Reviewed, dictated and finalized at location E. OOD CLERK IMPRESSION: 1. Normal brain.
--- NOTE | ~2023-08-31 | XR_ITS ---
EXAMINATION: XR ribs LT 2V w CXR 2V DATE: 08/31/2023 13:36 INDICATION: Left chest injury. TECHNIQUE: Frontal and lateral views of the chest and 2 views on 4 radiographs of the left ribs were obtained. COMPARISON: Chest CT 08/04/2023 FINDINGS: CHEST TWO VIEWS: There is mild scarring at left lung base. There is mild scarring at the lung apices. No pleural effusion or pneumothorax. The heart size is normal. There is a left chest wall pacer with leads in the right atrium and right ventricle. There is a closure device at left atrial appendage. S urgical clips in the right upper quadrant are likely from cholecystectomy. There are changes of anter ior fusion procedure in cervical spine. LEFT RIBS: There is no acute rib fracture. IMPRESSION: 1. No acute rib fracture. Reviewed, dictated and finalized at location E. IGURATION ENGINEER IMPRESSION: 1. No acute rib fracture.
[2023-08-31 13:07] VITALS: BP 136/97; PULSE 87; RESP 14; TEMP 36.4; O2SAT 96
--- NOTE | 2023-08-31 14:13 | ECG_ITS ---
Measurements Intervals Pitcher Rate: 61 P: 235 [place]: 176 QRS: 33 QRSD: 89 T: 30 QT: 402 QTc: 406 Interpretive Statements ELECTRONIC ATRIAL PACEMAKER EARLY PRECORDIAL R/S TRANSITION NONSPECIFIC T-WAVE ABNORMALITY- ANT/INF LEADS BORDERLINE ECG NO PREVIOUS ECG AVAILABLE FOR COMPARISON Electronically Signed On 08-31-2023 16:28:14 PARTY PLAN DEMONSTRATOR by Anthony Santacruz D.O.
--- NOTE | 2023-08-31 14:23 | PC.NURSE ---
Pt to CT scan via stretcher at this time.
[2023-08-31 14:43] VITALS: BP 141/94; PULSE 63; RESP 14; O2SAT 98
[2023-08-31] MEDS: HYDROcodone/acetaminophen (*CRX) 5-325 MG TABLET 1 TAB PO (14:46)
[2023-08-31 14:57] LABS: Troponin I < 0.012 ng/mL (0.000-0.034)
--- NOTE | 2023-08-31 14:58 | ED.FALL ---
HPI - Fall General Chief Complaint: Fall Stated Complaint: fall/ left sided chest pain Time Seen by Provider: 08/31/23 13:53 Source: patient Mode of arrival: ambulatory Limitations: no limitations History of Present Illness HPI Narrative: Patient is a 67-year-old male who presents to the ED with report of a fall. Patient reports he fell 2 days ago in his house and hit his left-sided chest against a coffee table. He states he falls frequently and has been worked up extensively for this. He is supposed to see a neurologist soon. He is unsure if he hit his head in the fall. Does not think he lost consciousness. Does not think he had a syncopal episode. He complains of pain to his left-sided chest / ribs. Reports pain with deep breathing. Denies feeling short of breath. Denies current dizziness or lightheadedness, nausea, vomiting, abdominal pain. Related Data Home Medications Medication Instructions Recorded Confirmed acetaminophen 500 mg capsule 1,000 mg PO Q6H PRN Pain 05/30/21 05/18/23 albuterol sulfate 90 mcg/actuation 2 inh inhalation Q4H PRN Shortness 05/30/21 05/18/23 breath activated powder inhaler Of Breath flecainide 50 mg tablet 50 mg PO Q12H 05/30/21 05/18/23 hydrocodone 10 mg-acetaminophen 1 tablet PO Q6H PRN Pain 05/30/21 05/18/23 325 mg tablet meclizine 25 mg tablet 25 mg PO TID PRN Vertigo 05/30/21 05/18/23 naloxone 4 mg/actuation nasal 4 mg intranasal Q2M PRN OVERDOSE 05/30/21 05/18/23 spray (Narcan) potassium chloride 20 mEq 20 meq PO DAILY 05/30/21 05/18/23 tablet,extended release(part/cryst) tizanidine 4 mg tablet 4 mg PO HS PRN Insomnia 05/30/21 05/18/23 aspirin 81 mg chewable tablet 81 mg PO DAILY 05/08/23 05/18/23 duloxetine 60 mg capsule,delayed 120 mg PO DAILY 05/08/23 05/18/23 release ergocalciferol (vitamin D2) 1,250 50,000 unit PO WEEKLY 05/08/23 05/18/23 mcg (50,000 unit) capsule fluticasone propionate 50 1 spray intranasal DAILY 05/08/23 05/18/23 mcg/actuation nasal spray,suspension folic acid 1 mg tablet 1 mg PO DAILY 05/08/23 05/18/23 Allergies Allergy/AdvReac Type Severity Reaction Status Date / Time No Known Allergies Allergy Verified 08/31/23 13:45 Review of Systems Review of Systems: CONSTITUTIONAL: Denies fever, chills, or sweats. CARDIOVASCULAR: See HPI. RESPIRATORY: See HPI. GASTROINTESTINAL: Denies abdominal pain, nausea, vomiting, or diarrhea. MUSCULOSKELETAL: See HPI. NEUROLOGIC: See HPI. All systems reviewed & are unremarkable except as noted in HPI and below PMFSH Past Medical History Medical History Afib Anxiety CAD (coronary artery disease) Cervicalgia COPD (chronic obstructive pulmonary disease) Decubitus ulcer of dorsum of foot DVT (deep venous thrombosis) Dysphagia Erectile disorder due to medical condition in male External hemorrhoid Fecal impaction HLD (hyperlipidemia) Hx of colonic polyps Hx of malignant neoplasm of tonsil Inflammatory arthritis Migraine Myalgia Nocturnal hypoxemia Pacemaker Prediabetes Presence of left atrial appendage closure device Therapeutic opioid-induced constipation (OIC) Tobacco dependence due to cigarettes Vertigo Social History Social History Smoking packs per day: 0.5 Smoking cigarettes per day: 10.0 Years smoked: 45 Smoking pack-years: 22.50 Smoking status: Current every day smoker Tobacco type: cigarettes Second hand tobacco smoke exposure: Yes Alcohol intake: never Substance use: never Substance use type: does not use Lack of Transportation: No Lack of Food: Never True Current Housing: I Have Housing Concerned About Future Housing: No Difficulty Paying Gas/Electric Bills: YES Difficulty Paying for Meds: No Currently Unemployed: No Education: High School Diploma/GED Difficulty w/ Childcare or Family Care: No Living arrangem
[2023-08-31 15:37] VITALS: BP 142/82; PULSE 62; RESP 14; O2SAT 97
[2023-08-31 16:08] LABS: Alanine Aminotransferase 23 U/L (6-50); Albumin Level 3.8 g/dL (3.5-5.1); Alkaline Phosphatase 110 U/L (38-126); Anion Gap 6 mmol/L (8-16); Aspartate Amino Transferase 18 U/L (17-59); Bilirubin,Total 0.6 mg/dL (0.2-1.3); Blood Urea Nitrogen 11 mg/dL (9-20); Calcium 9.1 mg/dL (8.4-10.2); Carbon Dioxide 31 mmol/L (22-30); Chloride 102 mmol/L (98-107); Estimated CRCL calculation 79 ml/min; Estimated Glomerular Filt Rate > 60; Glucose 97 mg/dL (65-110); Potassium 4.3 mmol/L (3.4-5.0); Sodium 139 mmol/L (137-145)
[2023-08-31 16:10] LABS: Basophils Absolute Auto 0.1 K/mm3 (0.0-0.1); Basophils Percent Auto 0.5 % (0.2-1.2); Eosinophils Absolute Auto 0.2 K/mm3 (0-0.3); Eosinophils Percent Auto 1.9 % (0-4.4); Hemoglobin 14.1 g/dL (14.0-18.0); Immature Granulocyte Absolute 0.04 K/mm3 (0.00-0.031); Immature Granulocyte Percent A 0.4 % (0-0.5); Lymphocytes Absolute Auto 1.97 K/mm3 (0.9-3.2); Lymphocytes Percent Auto 21.2 % (18.3-44.2); Mean Corpuscular Hemoglobin 30.2 pg (26-34); Mean Corpuscular Volume 94.2 fl (80-100); Mean Platelet Volume 9.4 fl (7.4-10.4); Monocytes Absolute Auto 0.5 K/mm3 (0.1-0.6); Monocytes Percent Auto 5.4 % (2.6-8.5); Neutrophils Absolute Auto 6.6 K/mm3 (1.3-6.7); Neutrophils Percent Auto 70.6 % (45.5-73.1); Platelet Count Result 228 k/mm3 (150-375); Red Blood Count 4.67 M/mm3 (4.6-6.20); White Blood Count 9.3 K/mm3 (4.5-10.0)
[2023-08-31 16:25] VITALS: BP 130/85; PULSE 60; RESP 15; O2SAT 96
[2023-08-31 17:24] VITALS: BP 132/81; PULSE 61; RESP 15; O2SAT 97
== END 2023-08-31 17:36 | disposition home or self-care (01) ==
PROVIDERS: Emergency Provider Physician Assistant; PCP Family Medicine
DX: S20.212A Contusion of left front wall of thorax, initial encounter (principal); Z95.0 Presence of cardiac pacemaker; F17.210 Nicotine dependence, cigarettes, uncomplicated; I48.91 Unspecified atrial fibrillation; F41.9 Anxiety disorder, unspecified; I25.10 Atherosclerotic heart disease of native coronary artery without angina pectoris; J44.9 Chronic obstructive pulmonary disease, unspecified; Z86.718 Personal history of other venous thrombosis and embolism; E78.5 Hyperlipidemia, unspecified; W19.XXXA Unspecified fall, initial encounter
CPT/HCPCS: 36415; 70450; 71046; 71100; 71250; 80053; 83735; 84484; 85025; 93005; 99284; A9270

== ENCOUNTER 2023-09-09 12:35 | Outpatient (CLI) | payer OTHER, SELFPAY | END 2023-09-09 12:36 | disposition home or self-care (01) | LOC: ANHLAB 12:36 | PROVIDERS: PCP Family Medicine; Visit Provider Family Medicine | DX: M79.10 Myalgia, unspecified site (principal); G62.9 Polyneuropathy, unspecified | CPT/HCPCS: 36415; 82607 ==

== ENCOUNTER 2023-09-18 16:26 | Emergency (ER) | payer OTHER, SELFPAY ==
--- NOTE | ~2023-09-18 | CT_ITS ---
EXAMINATION: CT abdomen pelvis w con DATE: 09/18/2023 21:41 INDICATION: Constipation. Abdominal pain. Nausea. TECHNIQUE: Computed tomography (CT) of the abdomen and pelvis was performed with 100 mL Omnipaque 350 intravenous contrast. Automated exposure control and iterative reconstruction technique were employe d. The dose-length product was 1175.78 mGy-cm. COMPARISON: None. FINDINGS: There is mucous plugging in the lower lobes. There are airspace opacities with volume loss in the lower lobes. No pleural effusion. The heart size is normal. Pacer wires in right atrium and ri ght ventricle. There is a closure device at left atrial appendage. No pericardial effusion. The liver demonstrates focal steatosis in the gallbladder fossa. There are changes of cholecystectomy. The humphrey creas, spleen, adrenal glands, and kidneys are normal. There are no dilated loops of bowel. The appen jd is normal. There is wall thickening of the rectosigmoid. There is calcified atherosclerosis of th e aorta and many of the other arteries. There are no pathologically enlarged lymph nodes. There is no free intraperitoneal fluid. There is mild thoracic and lumbar spondylosis. IMPRESSION: 1. Wall thickening of the rectosigmoid, consistent with colitis. 2. Mucous plugging in the lower lobes with airspace opacities in the lower lobes, consistent with ate lectasis versus pneumonia. Reviewed, dictated and finalized at location [facility] IMPRESSION: 1. Wall thickening of the rectosigmoid, consistent with colitis. 2. Mucous plugging in the lower lobes with airspace opacities in the lower lobe s, consistent with atelectasis versus pneumonia.
[2023-09-18 17:01] VITALS: BP 123/64; PULSE 65; RESP 16; TEMP 37; O2SAT 97
[2023-09-18 20:15] VITALS: BP 117/85; PULSE 60; RESP 20; TEMP 36.5; O2SAT 96
[2023-09-18 20:36] LABS: Basophils Absolute Auto 0.1 K/mm3 (0.0-0.1); Basophils Percent Auto 0.6 % (0.2-1.2); Eosinophils Absolute Auto 0.2 K/mm3 (0-0.3); Eosinophils Percent Auto 1.5 % (0-4.4); Hematocrit 41.8 % (42.0-52.0); Hemoglobin 13.4 g/dL (14.0-18.0); Immature Granulocyte Absolute 0.03 K/mm3 (0.00-0.031); Immature Granulocyte Percent A 0.3 % (0-0.5); Lymphocytes Absolute Auto 1.69 K/mm3 (0.9-3.2); Lymphocytes Percent Auto 16.6 % (18.3-44.2); Mean Corpuscular HGB Conc 32.1 g/dl (32-36); Mean Corpuscular Hemoglobin 29.8 pg (26-34); Mean Corpuscular Volume 93.1 fl (80-100); Mean Platelet Volume 9.2 fl (7.4-10.4); Monocytes Absolute Auto 0.8 K/mm3 (0.1-0.6); Monocytes Percent Auto 8.2 % (2.6-8.5); Neutrophils Absolute Auto 7.4 K/mm3 (1.3-6.7); Neutrophils Percent Auto 72.8 % (45.5-73.1); Platelet Count Result 261 k/mm3 (150-375); Red Blood Count 4.49 M/mm3 (4.6-6.20); Red Cell Distribution Width 14.2 % (11.5-14.5); White Blood Count 10.2 K/mm3 (4.5-10.0)
[2023-09-18 20:46] LABS: Alanine Aminotransferase 14 U/L (6-50); Albumin Level 3.7 g/dL (3.5-5.1); Alkaline Phosphatase 151 U/L (38-126); Anion Gap 7 mmol/L (8-16); Aspartate Amino Transferase 16 U/L (17-59); Bilirubin,Total 0.7 mg/dL (0.2-1.3); Blood Urea Nitrogen 11 mg/dL (9-20); Calcium 8.8 mg/dL (8.4-10.2); Carbon Dioxide 28 mmol/L (22-30); Chloride 101 mmol/L (98-107); Estimated CRCL calculation 95 ml/min; Estimated Glomerular Filt Rate > 60; Glucose 105 mg/dL (65-110); Lipase 39 U/L (23-300); Potassium 3.6 mmol/L (3.4-5.0); Sodium 136 mmol/L (137-145)
[2023-09-18] MEDS: SODIUM CHLORIDE 0.9% IV 1,000 ML 999 ML IV CONT (21:30)
[2023-09-18] MEDS: ONDANSETRON INJ 4 MG/2 ML VIAL IV PUSH (21:31)
[2023-09-18 21:38] LABS: Appearance Urine Clear (Clear); Bilirubin Urine Negative (Negative); Blood Urine Negative (Negative); Color Urine Yellow (Yellow); Glucose Urine UA Negative (Negative); Ketones Urine Negative (Negative); Leukocyte Esterase Ur Negative LEU/UL (Negative); Nitrate Urine Negative (Negative); Protein Urine Negative (Negative); Specific Grav Ur 1.009 (1.001-1.035); pH Urine 5.5 (5.0-9.0)
[2023-09-18 21:40] LABS: Add Urine Microscopic? NO
--- NOTE | 2023-09-18 22:36 | ED.ABDPAIN ---
HPI - Abdominal Pain General Chief Complaint: Abdominal Pain Stated Complaint: constipation Time Seen by Provider: 09/18/23 20:11 Source: patient Mode of arrival: ambulatory Limitations: no limitations History of Present Illness HPI narrative: Patient is a 67-year-old male who presents the ED with report of constipation and abdominal pain. patient reports having constipation for the last 1 week. He is on chronic opioid pain medication d/t Hx of chronic back pain. He has been using pyph-[id number] enemas and suppositories without improvement. He attempted to have a bowel movement 3 days ago and notes he had to dig out the stool. He complains of diffuse lower abdominal pain, intermittent nausea with dry heaving, subjective fevers. Denies rectal bleeding, though he does note history of internal hemorrhoids that occasionally prolapse. Denies difficulty urinating. Related Data Home Medications Medication Instructions Recorded Confirmed acetaminophen 500 mg capsule 1,000 mg PO Q6H PRN Pain 05/30/21 05/18/23 albuterol sulfate 90 mcg/actuation 2 inh inhalation Q4H PRN Shortness 05/30/21 05/18/23 breath activated powder inhaler Of Breath flecainide 50 mg tablet 50 mg PO Q12H 05/30/21 05/18/23 hydrocodone 10 mg-acetaminophen 1 tablet PO Q6H PRN Pain 05/30/21 05/18/23 325 mg tablet meclizine 25 mg tablet 25 mg PO TID PRN Vertigo 05/30/21 05/18/23 naloxone 4 mg/actuation nasal 4 mg intranasal Q2M PRN OVERDOSE 05/30/21 05/18/23 spray (Narcan) potassium chloride 20 mEq 20 meq PO DAILY 05/30/21 05/18/23 tablet,extended release(part/cryst) tizanidine 4 mg tablet 4 mg PO HS PRN Insomnia 05/30/21 05/18/23 aspirin 81 mg chewable tablet 81 mg PO DAILY 05/08/23 05/18/23 duloxetine 60 mg capsule,delayed 120 mg PO DAILY 05/08/23 05/18/23 release ergocalciferol (vitamin D2) 1,250 50,000 unit PO WEEKLY 05/08/23 05/18/23 mcg (50,000 unit) capsule fluticasone propionate 50 1 spray intranasal DAILY 05/08/23 05/18/23 mcg/actuation nasal spray,suspension folic acid 1 mg tablet 1 mg PO DAILY 05/08/23 05/18/23 Allergies Allergy/AdvReac Type Severity Reaction Status Date / Time No Known Allergies Allergy Verified 09/18/23 20:41 Review of Systems Review of Systems: CONSTITUTIONAL: See HPI. CARDIOVASCULAR: Denies chest pain, palpitations, or edema. RESPIRATORY: Denies cough or dyspnea. GASTROINTESTINAL: See HPI. GENITOURINARY: Denies dysuria or hematuria. SKIN: Denies rash or itching. MUSCULOSKELETAL: Denies back pain, joint pain, or myalgia. All systems reviewed & are unremarkable except as noted in HPI and below PMFSH Past Medical History Medical History Afib Anxiety CAD (coronary artery disease) Cervicalgia COPD (chronic obstructive pulmonary disease) Decubitus ulcer of dorsum of foot DVT (deep venous thrombosis) Dysphagia Erectile disorder due to medical condition in male External hemorrhoid Fecal impaction HLD (hyperlipidemia) Hx of colonic polyps Hx of malignant neoplasm of tonsil Inflammatory arthritis Migraine Myalgia Nocturnal hypoxemia Pacemaker Prediabetes Presence of left atrial appendage closure device Therapeutic opioid-induced constipation (OIC) Tobacco dependence due to cigarettes Vertigo Social History Social History Smoking packs per day: 0.5 Smoking cigarettes per day: 10.0 Years smoked: 45 Smoking pack-years: 22.50 Smoking status: Current every day smoker Tobacco type: cigarettes Second hand tobacco smoke exposure: Yes Alcohol intake: never Substance use: never Substance use type: does not use Lack of Transportation: No Lack of Food: Never True Current Housing: I Have Housing Concerned About Future Housing: No Difficulty Paying Gas/Electric Bills: YES Difficulty Paying for Meds: No Currently Unemployed: No Education: [employer]
[2023-09-18 23:30] VITALS: BP 132/78; PULSE 60; RESP 19; O2SAT 100
== END 2023-09-18 23:32 | disposition home or self-care (01) ==
PROVIDERS: Emergency Provider Physician Assistant; PCP Family Medicine
DX: K59.00 Constipation, unspecified (principal); K52.9 Noninfective gastroenteritis and colitis, unspecified; I48.91 Unspecified atrial fibrillation; J44.9 Chronic obstructive pulmonary disease, unspecified; E78.5 Hyperlipidemia, unspecified; M54.9 Dorsalgia, unspecified; G89.29 Other chronic pain; R73.03 Prediabetes; M19.90 Unspecified osteoarthritis, unspecified site; F17.210 Nicotine dependence, cigarettes, uncomplicated; Z95.0 Presence of cardiac pacemaker; Z85.29 Personal history of malignant neoplasm of other respiratory and intrathoracic organs; Z86.010 Personal history of colon polyps; Z86.718 Personal history of other venous thrombosis and embolism; Z79.82 Long term (current) use of aspirin; Z79.891 Long term (current) use of opiate analgesic; R91.8 Other nonspecific abnormal finding of lung field
CPT/HCPCS: 36415; 74177; 80053; 81003; 83690; 85025; 96361; 96374; 99284; J2405; J7030; Q9967

== ENCOUNTER 2024-05-16 14:08 | Outpatient (CLI) | payer OTHER, SELFPAY ==
[2024-05-16 14:59] LABS: Hematocrit 44.2 % (42.0-52.0); Hemoglobin 14.7 g/dL (14.0-18.0); Mean Corpuscular HGB Conc 33.3 g/dl (32-36); Mean Corpuscular Hemoglobin 30.7 pg (26-34); Mean Corpuscular Volume 92.3 fl (80-100); Mean Platelet Volume 9.5 fl (7.4-10.4); Platelet Count Result 261 k/mm3 (150-375); Red Blood Count 4.79 M/mm3 (4.6-6.20); Red Cell Distribution Width 14.2 % (11.5-14.5); White Blood Count 7.4 K/mm3 (4.5-10.0)
[2024-05-16 15:12] LABS: Alanine Aminotransferase 23 U/L (6-50); Alkaline Phosphatase 99 U/L (38-126); Anion Gap 9 mmol/L (4-12); Aspartate Amino Transferase 22 U/L (17-59); Bilirubin,Total 0.4 mg/dL (0.2-1.3); Blood Urea Nitrogen 12 mg/dL (9-20); Carbon Dioxide 26 mmol/L (22-30); Chloride 102 mmol/L (98-107); Cholesterol 139 mg/dL (0-200); Estimated Glomerular Filt Rate > 60; Glucose 94 mg/dL (65-110); HDL Direct 38 mg/dL; Sodium 137 mmol/L (137-145); Triglycerides 134 mg/dL (<150)
[2024-05-16 15:31] LABS: LDL Cholesterol Direct 74 mg/dL
[2024-05-16 15:42] LABS: Prostate Specific Antigen 0.7 ng/mL (< OR = 4.0)
[2024-05-18 22:33] LABS: Amphetamines NEGATIVE ng/mL (<500); Barbiturates NEGATIVE ng/mL (<300); Benzodiazepines POSITIVE ng/mL (<100); Cocaine Metabolite NEGATIVE ng/mL (<150); Marijuana Metabolite NEGATIVE ng/mL (<20); Methadone Metabolite NEGATIVE ng/mL (<100); Opiates POSITIVE ng/mL (<100); Oxidant NEGATIVE mcg/mL (<200); pH 5.5 (4.5-9.0)
== END 2024-05-16 14:09 | disposition home or self-care (01) ==
LOC: ANHLAB 14:10
PROVIDERS: PCP Family Medicine; Visit Provider Family Medicine
DX: Z00.00 Encounter for general adult medical examination without abnormal findings (principal); F41.9 Anxiety disorder, unspecified; I25.10 Atherosclerotic heart disease of native coronary artery without angina pectoris; J44.9 Chronic obstructive pulmonary disease, unspecified; M19.90 Unspecified osteoarthritis, unspecified site; R13.10 Dysphagia, unspecified; R55 Syncope and collapse; R73.03 Prediabetes; Z95.0 Presence of cardiac pacemaker
CPT/HCPCS: 36415; 80053; 80061; 80307; 83036; 84153; 84443; 85027; G0103

== ENCOUNTER 2024-06-01 08:41 | Outpatient (CLI) | payer OTHER, SELFPAY ==
[2024-06-01 08:30] VITALS: PULSE 78; O2SAT 96
[2024-06-01 08:55] VITALS: PULSE 91; O2SAT 96
[2024-06-01 09:00] VITALS: PULSE 80; O2SAT 98
--- NOTE | 2024-06-01 09:34 | HOMEO2EVAL ---
Evaluation was performed at [facility] Home Oxygen Evaluation RC: Home Oxygen (O2) Evaluation Start: 06/01/24 09:32 Freq: Status: Active Protocol: RPE Activity Type Activity Date Activity User E-sign Co-sign Detail Recorded Client Recorded Date Recorded By Document 06/01/24 08:30 PK [email or web address] 06/01/24 09:34 [facility] Document 06/01/24 08:55 [facility] [email or web address] 06/01/24 09:34 [facility] Document 06/01/24 09:00 [facility] [email or web address] 06/01/24 09:34 [facility] 06/01/24 06/01/24 06/01/24 08:30 08:55 09:00 Home O2 Evaluation [Oxygen] -Test Phase Resting Exercise Resting -Oxygen Delivery Room Air Room Air Room Air [Pulse Oximetry] -Pulse Oximetry (90-100 %) 96 96 98 [Pulse Rate] -Pulse Rate (60-100 beats/min) 78 91 80 [Evaluation] -Activity Tolerance Good [Charges] -Evaluation Charges O2 Evaluation by Pulmonary
== END 2024-06-01 08:42 | disposition home or self-care (01) ==
LOC: ANHPFT 08:43
PROVIDERS: PCP Family Medicine; Visit Provider Physician Assistant
DX: J44.9 Chronic obstructive pulmonary disease, unspecified (principal)
CPT/HCPCS: 94618

== ENCOUNTER 2024-08-05 08:32 | Outpatient (CLI) | payer OTHER, SELFPAY ==
[2024-08-06 06:28] LABS: Prolactin 5.9 ng/mL (2.0-18.0)
[2024-08-08 05:38] LABS: Methylmalonic Acid 246 nmol/L (69-390)
--- NOTE | 2024-08-09 10:54 | WPDNEUROLOGY ---
Neurology EEG Report General Information Date of Study: 08/05/24 TEST Eeg DIAGNOSIS headache CONDITION OF RECORDING awake drowsy and sleep EEG NUMBER [id number] CLINICAL HISTORY patient reports for about the last year he has been having spells of dizziness and losing consciousness once or twice a week afterwards see has a bad headache and very groggy. EEG DESCRIPTION Basic resting occipital frequency consists of well-organized low to medium voltage 8 to 10 hertz per 2nd alpha admixed with low-voltage 15 to 18 hertz per 2nd beta activity. Low-voltage beta activity seen diffusely admixed with waxing and waning posterior alpha rhythm. Hyperventilation not done photic stimulation produces normal drive. Non paroxysmal. Nonfocal. IMPRESSION Normal record during wakefulness and drowsiness. Clinical correlation recommended.
[2024-08-09 20:08] LABS: Red Blood Cell Folate 591 ng/mL RBC (>280)
[2024-08-10 13:04] LABS: Vitamin D 1,25 (OH)2 Total 35 pg/mL (18-72); Vitamin D2 1,25 (OH)2 35 pg/mL; Vitamin D3 1,25 (OH)2 <8 pg/mL
== END 2024-08-05 08:33 | disposition home or self-care (01) ==
PROVIDERS: PCP Family Medicine; Visit Provider Psychiatry & Neurology Neurology
DX: R51.9 Headache, unspecified (principal); I48.91 Unspecified atrial fibrillation; Z95.0 Presence of cardiac pacemaker; E55.9 Vitamin D deficiency, unspecified; M21.372 Foot drop, left foot
CPT/HCPCS: 36415; 82607; 82652; 82747; 83921; 84146; 84443; 95816

== ENCOUNTER 2024-08-15 12:51 | Outpatient (CLI) | payer OTHER, SELFPAY ==
--- NOTE | ~2024-08-15 | CT_ITS ---
CT Scan of the Chest without Contrast: Clinical Indication: Lung cancer screening, nicotine dependence Technique: Contiguous sections were acquired throughout the chest without intravenous contrast. Dose reduction technique was used on this scan by utilizing automated exposure control and iterative recon struction technique. The dose-length product (DLP) was 193.77 mGy-cm. COMPARISON: 08/31/2023 Findings: There is no evidence of any significant mediastinal, hilar or axillary lymphadenopathy. Coronary myles ry calcifications are noted. Left atrial appendage closure device present. There is no evidence of pleural or pericardial effusion. The lungs are clear, aside from linear left basilar scarring or atelectasis. Images through the upper abdomen reveal no abnormalities. Impression: Lung RADS 1: Negative. 12 month follow-up screening CT advised. Reviewed, dictated and finalized at [facility]. [employer] Impression: Lung RADS 1: Negative. 12 month follow-up screening CT advised.
== END 2024-08-15 12:52 | disposition home or self-care (01) ==
PROVIDERS: PCP Family Medicine; Visit Provider Nurse Practitioner Family
DX: Z12.2 Encounter for screening for malignant neoplasm of respiratory organs (principal); Z87.891 Personal history of nicotine dependence
CPT/HCPCS: 71271

== ENCOUNTER 2025-02-23 18:15 | Emergency (ER) | payer OTHER, SELFPAY ==
--- NOTE | ~2025-02-23 | XR_ITS ---
XR foot LT min 3V Ordering provider: Steve Avery MD History: . 2nd digit infection . Comparison: None. FINDINGS: BONES: No acute fracture or dislocation. Osteopenia. JOINT SPACES: Narrowing of the distal interphalangeal joints. No tarsal coalition. SOFT TISSUES: Sclerotic changes in the mid tibia or soft tissue calcification is seen. Calcaneal spur. IMPRESSION: No acute osseous abnormality left foot. Reviewed, dictated and finalized at location A.
--- OUTSIDE RECORDS SUMMARY | 2025-02-23 18:17 | XMS_ITS | Referral Summary ---
Author Organization [facility] Address [address] [place] [address] Care Team Providers Care Weight Count Operator Name Role Phone Jose Duncan MD Primary Care Provider [phone] Encounters Date Type Department Care Team Description 01/24/2025 Telephone [facility] [address] [place] [address] [place] [phone] Sergey Chang MD 01/24/2025 1:00 PM CDT Ancillary Procedure [facility] [address] [place] [address] [place] [phone] Cardiac pacemaker in situ [Z95.0] (Primary Dx); SSS (sick sinus syndrome) (HCC); Paroxysmal atrial fibrillation (HCC) 01/24/2025 1:00 PM CDT Office Visit [facility] [address] [facility] [address] [place] [address] Veronica Zapata NP Dyslipidemia (Primary Dx); Palpitations 01/23/2025 Telephone Cardiology Teena Dillon DO 01/05/2025 Orders Only [facility] [address] [facility] [address] [place] [address] Kevin Car MD 01/04/2025 Orders Only [facility] Vascular at [address] [place] [address] Kevin Car MD PAD (peripheral artery disease) (Primary Dx) 01/04/2025 9:00 AM CDT Office Visit [facility] at [address] [place] [address] Kevin Car MD PAD (peripheral artery disease) (Primary Dx); Dyslipidemia; Essential (primary) hypertension 12/20/2024 1:00 PM CDT Ancillary Procedure [facility] at [address] [place] [address] PAD (peripheral artery disease) 12/20/2024 1:00 PM CDT Ancillary Procedure [facility] at [address] [place] [address] PAD (peripheral artery disease) 12/20/2024 2:00 PM CDT Ancillary Procedure [facility] at [address] [place] [address] Aftercare following surgery of the circulatory system 12/15/2024 Orders Only [facility] [address] [facility] [address] [place] [phone] Kevin Car MD Aftercare following surgery of the circulatory system (Primary Dx) from Last 3 Months Allergies No known active allergies Medications budesonide-for moteroL (SYMBICORT) 160-4.5 mcg/actuation inhalerIndicat ions:Bronchosp asm Prevention with COPD Inhale 2 puffs 2 (two) times a day 0 Active clonazePAM (KlonoPIN) 1 mg tabletIndicati ons:panic disorder Take 1 tablet (1 mg total) by mouth 3 (three) times a day [address] (CYMBALTA) 60 mg capsule Take 2 capsules (120 mg total) by mouth every morning 0 Active losartan (COZAAR) 50 mg tabletIndicati ons:hypertensi on Take 1 tablet (50 mg total) by mouth every morning 0 Active mucus clearing device device 1 Device by Not Applicable route 4 (four) times a day 0 Active potassium chloride ER (KLOR-CON) 20 mEq CR tabletIndicati ons:supplement Take 1 tablet (20 mEq total) by mouth every morning 0 Active tadalafiL (CIALIS) 5 mg tablet Take 1 tablet (5 mg total) by mouth nightly 0 Active tiZANidine (ZANAFLEX) 4 mg tabletIndicati ons:Muscle Spasm Take 1 tablet (4 mg total) by mouth as needed 0 Active albuterol 2.5 mg /3 mL (0.083 %) nebulizer solution Inhale 3 mL (2.5 mg total) every 6 (six) hours as needed 0 Active albuterol HFA (PROVENTIL HFA,VENTOLIN HFA,PROAIR HFA) 90 mcg/actuation inhaler Inhale 2 puffs every 4 (four) hours as needed 0 Active miscellaneous medical supply misc 2L/SEWING DEPARTMENT SUPERVISOR at night Activ e meclizine (ANTIVERT) 25 mg tablet Take 1 tablet (25 mg total) by mouth 3 (three) times a day as needed 1 Active HYDROcodone-ac etaminophen (NORCO) 10-325 mg per tabletIndicati ons:Pain Take 1 tablet by mouth every 4 (four) hours as needed for pain 20 tablet 1 Active ibuprofen (ADVIL,MOTRIN) 800 mg tablet Take 1 tablet (800 mg total) by mouth 3 (three) times a day as needed 2 Active ergocalciferol (VITAMIN D) 50,000 unit capsule Take 1 capsule (50,000 Units total) by mouth once a week Thursday 3 Active fluticasone propionate (FLONASE) 50 mcg/actuation nasal spray Administer 1 spray into each nostril every morning 3 Active folic acid (FOLVITE) 1 mg tablet Take 1 tablet (1,000 mcg total) by mouth daily 3 Active Spiriva with HandiHaler 18 mcg per inhalation capsule Place 1 puff (1 capsule total) into inhaler and inhale daily 3 Active aspirin 81 mg chewable tabletIndicati ons:coronary artery disease Take 1 tablet (81 mg total) by mouth daily 30 tablet 11 3 Active atorvastatin (LIPITOR) 40 mg tablet Take 1 tablet (40 mg total) by mouth daily 30 tablet 11 4 09/14/20 25 Active gabapentin (NEURONTIN) 300 mg capsule Take 1 capsule (300 mg total) by mouth bedtime 5 Active omeprazole (PriLOSEC) 40 mg capsule Take 1 capsule (40 mg total) by mouth daily 4 Active tiZANidine (ZANAFLEX) 2 mg tablet Take 1 tablet (2 mg total) by mouth 2 (two) times a day 5 Active clopidogreL (PLAVIX) 75 mg tablet Take 1 tablet (75 mg total) by mouth daily 30 tablet 11 5 10/24/19 26 Active flecainide (TAMBOCOR) 50 mg tablet TAKE 2 TABLETS BY MOUTH TWICE A DAY 360 tablet 1 5 Active varenicline tartrate (CHANTIX) 1 mg tablet Take 1 tablet (1 mg total) by mouth 2 (two) times a day 60 tablet 3 5 Active Additional Information Patient not taking.Reported on 01/24/2025 metoprolol tartrate (LOPRESSOR) 50 mg immediate release tabletIndicati ons:hypertensi on Take 1 tablet (50 mg total) by mouth 2 (two) times a day 180 tablet 3 5 01/26/20 26 Active metoprolol tartrate (LOPRESSOR) 25 mg immediate release tabletIndicati ons:hypertensi on Take 1 tablet (25 mg total) by mouth 2 (two) times a day 01/26/20 25 Discontin ued(Reord er) Active Problems Problem Noted Date Diagnosed Date Palpitations 01/24/2025 PAD (peripheral artery disease) 2024 Assessment & Plan (01/06/2025 9:59 AM CDT): Discussed findings with the patient, overall his symptoms predominantly seemed to be neurogenic in nature possibly due to his injury and/or ischemia from his injury. I would not expect the severity of his symptoms based on his noninvasives testing and how quickly his symptoms start after minimal ambulation. I suspect again majority of this is neurogenic in nature. Continue risk factor modification with ASA Plavix and statin therapy, I will reach out to his neurologist to see if he needs to be further evaluated. We will need ongoing surveillance with repeat noninvasives testing in 6-12 months. Assessment & Plan (11/28/2024 10:39 AM MARKET ASSET PROTECTION MANAGER): Continue ASA Plavix and statin therapy. Noninvasive testing to get a new baseline since undergoing his angiogram and intervention on his left iliac artery. Follow back up in the office in 2-3 weeks. Claudication 2024 A-fib 12/12/2022 Paroxysmal atrial fibrillation 08/21/2022 Frequent falls 08/21/2022 Medical contraindication to anticoagulant medica tion 08/21/2022 H/O: CVA (cerebrovascular accident) 08/21/2022 Tobacco abuse 08/21/2022 Confusional arousals 06/30/2022 Daytime sleepiness 06/30/2022 Dream enactment behavior 06/30/2022 Sleep talking 06/30/2022 Nocturnal sleep-related eating disorder 06/30/20 22 Unrefreshed by sleep 06/30/2022 Cardiac pacemaker in situ 06/05/2021 Overview (06/05/2021): Medtronic Dual Pacemaker. Dx; Sinus Node Dysfunction. DOI 08/24/2020-Dr Bal Hernandez. [facility] Remote transfer request submitted. History of sinoatrial node dysfunction Assessment & Plan (03/05/2021 5:28 PM CDT): SSS S/P Medtronic dual-chamber pacemaker implantation in Aug 2020 with .) - Brand: Medtronic - Cont home medications History of fall 02/05/2021 Assessment & Plan (02/05/2021 3:23 PM CDT): Apparently patient fell at home prior to admission (02/04) and imaging was taken at OSH-this included the pleural effusion on the left and a non-displaced left wrist fracture. He forgot to let the surgical team know and is on plavix at home for hx CVA-last dose 02/04 - OT consult for wrist bract (left at home) and will wrap in LETTY until OT sees. - fell on left side no rib fractures noted on imaging from 02/04 Pleural effusion 02/04/2021 Assessment & Plan (03/06/2021 9:02 AM CDT): Left sided pleural effusion, Hx open plication for diaphragm paralysis 11/01/20. Patient fell at home prior to previous admission (02/03) - left effusion noted on OSH imaging -plavix on hold for now - F/U labs -O2 as needed (wears home O2 at 2l/m)-on RA currently After reviewing CXR done here not too concerning and only small area of effusion. Will D/W Dr. Ambriz to see if needs to go to the OR. 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 - elevated to 2.27 on admission - received hydration and this AM has decreased to 1.53 - hold LETTY, oral potassium (home medication) - avoid hypotension and nephrotoxic medications. - Labs in AM Atelectasis 11/02/2020 Assessment & Plan (11/02/2020 8:09 AM MARKET ASSET PROTECTION MANAGER): - noted on post op CXR - very congested sounding cough - pul toileting today CVA (cerebral vascular accident) ([facility]) 11/01 Overview (12/04/2022): Last Assessment & Plan: high-grade stenosis noted at the left posterior inferior cerebellar artery at the junction of the basilar artery. Maintained on clopidogrel and atorvastatin for this reason. - restart plavix when safe in post op period - cont statin Last Assessment & Plan: Hx of and was on plavix and it has been held since previous admisstion Last Assessment & Plan: high-grade stenosis noted at the left posterior inferior cerebellar artery at the junction of the basilar artery. Maintained on clopidogrel and atorvastatin for this reason. - restart plavix when safe in post op period - cont statin Assessment & Plan (03/05/2021 5:25 PM CDT): Hx of and was on plavix and it has been held since previous admisstion Assessment & Plan (02/06/2021 7:55 AM CDT): - Hx of and is on Plavix at home - hold for now due to bloody effusion from fall Assessment & Plan (11/01/2020 5:15 PM MARKET ASSET PROTECTION MANAGER): high-grade stenosis noted at the left posterior inferior cerebellar artery at the junction of the basilar artery. Maintained on clopidogrel and atorvastatin for this reason. - restart plavix when safe in post op period - cont statin Chronic respiratory failure 11/01/2020 Overview (12/04/2022): Last Assessment & Plan: Hx COPD, home O2 use at night - Cont inhalers Last Assessment & Plan: R/T COPD - home O2 at 2l/m No acute decompensation noted Last Assessment & Plan: Hx COPD, home O2 use at night - Cont inhalers Assessment & Plan (03/05/2021 5:21 PM CDT): R/T COPD - home O2 at 2l/m No acute decompensation noted Assessment & Plan (02/05/2021 7:37 AM CDT): - R/T COPD - home O2 at 2l/m No acute decompensation noted Assessment & Plan (11/01/2020 5:19 PM MARKET ASSET PROTECTION MANAGER): Hx COPD, home O2 use at night - Cont inhalers Chronic pain 11/01/2020 Overview (12/04/2022): Last Assessment & Plan: - FIRST AID ATTENDANT/epidural - cont neurontin Last Assessment & Plan: - cont medications - monitor Last Assessment & Plan: - FIRST AID ATTENDANT/epidural - cont neurontin Assessment & Plan (03/05/2021 5:19 PM CDT): - cont medications - monitor Assessment & Plan (02/06/2021 7:55 AM CDT): - cont medications - monitor Assessment & Plan (11/01/2020 5:22 PM MARKET ASSET PROTECTION MANAGER): - FIRST AID ATTENDANT/epidural - cont neurontin 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 Overview (12/04/2022): Last Assessment & Plan: S/p open plication 11/01/20. Incision well-healed. -See pleural effusion Last Assessment & Plan: S/p open plication 11/01/20. Incision well-healed. -See pleural effusion Last Assessment & Plan: S/p open plication 11/01/20. Incision well-healed. -See pleural effusion Assessment & Plan (02/04/2021 11:39 PM CDT): S/p open plication 11/01/20. Incision well-healed. -See pleural effusion Assessment & Plan (11/01/2020 5:05 PM MARKET ASSET PROTECTION MANAGER): S/P plication of the diaphragm - Pain control-FIRST AID ATTENDANT/epidural - IVF - Jimenez - ADAT VT (ventricular tachycardia) 07/31/2020 Overview (12/04/2022): Last Assessment & Plan: Has history of and has PPM - Cont BB as BP tolerates - flecainide continued Last Assessment & Plan: - Cont home medications Added automatically from request for surgery [id number] Last Assessment & Plan: Has history of and has PPM - Cont BB as BP tolerates - flecainide continued Added automatically from request for surgery [id number] Assessment & Plan (03/05/2021 5:25 PM CDT): - Cont home medications Assessment & Plan (02/04/2021 11:44 PM CDT): Continue home flecainide Assessment & Plan (11/01/2020 5:16 PM MARKET ASSET PROTECTION MANAGER): Has history of and has PPM - Cont BB as BP tolerates - flecainide continued Bradycardia 07/31/2020 Other fatigue 07/31/2020 Coronary artery disease invo lving [place] coronary artery of [place] heart without angina pectoris 07/31/2020 SOB (shortness of breath) on exertion 07/31/2020 Headache syndrome, complicated 09/20/2017 Dyslipidemia 09/19/2017 Overview (12/04/2022): Last Assessment & Plan: Lipid panel and statin started Last Assessment & Plan: Lipid panel and statin started Assessment & Plan (01/06/2025 9:59 AM CDT): Stable continue Lipitor Assessment & Plan (11/28/2024 10:40 AM MARKET ASSET PROTECTION MANAGER): Stable continue Lipitor Dysuria 05/19/2017 Encounter for screening for malignant neoplasm o f prostate 05/14/2017 Pelvic and perineal pain 05/14/2017 Cervical radicular pain 03/02/2017 GERD (gastroesophageal reflux disease) 7 Overview (12/04/2022): Last Assessment & Plan: pepcid Last Assessment & Plan: pepcid History of cancer tonsil 07/28/2016 Sensorineural hearing loss (SNHL) of both ears 0 06/17/2016 Allergic rhinitis 03/28/2016 History of colonic polyps 12/07/2015 Chronic diarrhea 06/19/2015 BPH (benign prostatic hyperplasia) 01/04/2015 Overview (12/04/2022): Added automatically from request for surgery [id number] Added automatically from request for surgery [id number] Last Assessment & Plan: No obstructive symptoms now.. 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 Cont to smoke - wean daytime O2 as tolerated - cont inhalers - pulmonary toileting Last Assessment & Plan: - cont home inhaler - Home O2 Last Assessment & Plan: Wear O2 at night. Cont to smoke - wean daytime O2 as tolerated - cont inhalers - pulmonary toileting Last Assessment & Plan: COPD, nebs prn, o2 as needed Assessment & Plan (03/05/2021 5:22 PM CDT): - cont home inhaler - Home O2 Assessment & Plan (02/05/2021 7:36 AM CDT): - cont home inhaler - Home O2 Assessment & Plan (11/01/2020 5:17 PM MARKET ASSET PROTECTION MANAGER): Wear O2 at night. 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 02/06/20 21 Immunizations Immunization Administration Dates Next Due Influenza, Unspecified 06/12/2020 Social History Tobacco Use Types Packs/Day Years Used Date Smoking Tobacco: Every Day Cigarettes 0.5 54.4 Started: 1970 Smokeless Tobacco: Current Chew Tobacco Cessation:Ready to Q uit: Yes; Counseling Given: Yes Comments:Counseled pt to contact PCP for assist with quitting; inst not to smoke for 24 hrs prior to procedure; smoking cessation booklet given to patient; Alcohol Use Standard Drinks/Week Comments Not Currently 0 (1 standard drink = 0.6 oz pur e alcohol) AUDIT-C Answer Date Recorded Frequency of Alcohol Consumption Not on file 10/24/2024 Q2: How many drinks containi ng alcohol do you have on a typical day when you are drinking? Patient does not drink Frequency of Binge Drinking Not on file 10/12 Personal Safety Answer Date Recorded Have you ever been in or are you currently in a harmful physical or emotional relationship or is someone making you feel afraid or unsafe? Denies 10/24/2024 Sex and Gender Information Value Date Recorded Sex Assigned at Not on file Legal Sex Male 3:54 AM MARKET ASSET PROTECTION MANAGER Gender Identity Not on file Sexual Orientation Not on file Last Filed Vital Signs Vital Sign Reading Time Taken Comments Blood Pressure 118/78 01/24/2025 1:09 PM CDT Pulse 71 01/24/2025 1:09 PM CDT Temperature 36.6 C (97.8 F) 10/24/2024 7:22 AM MARKET ASSET PROTECTION MANAGER Respiratory Rate 16 10/24/2024 7:22 AM MARKET ASSET PROTECTION MANAGER Oxygen Saturation 96% 01/24/2025 1:09 PM CDT Inhaled Oxygen Concentration - - Weight 109.5 kg (241 lb 8 oz) 01/24/2025 1:09 PM CDT Height 200.7 cm (6' 7 ) 01/24/2025 1:09 PM CDT Body Mass Index 27.21 01/24/2025 1:09 PM CDT Plan of Treatment Not on file Medical Devices Implanted Type Area Shipping Coordinator Device Identifier Shelf Expiration Date Model / Serial / Lot [employer] Vascade Mvp 6-12fr Venous Closure [id number] - [id number] Implanted:Qty: 1 on 12/12/2022 by Sergey Chang MD at [facility] Right: Femoral Vein [place] [employer] 08/26/2024 [id number] / / [id number] Harry [employer] Percutaneous Transcatheter Amplatzer Amulet 25mm [id number] - [id number] Implanted:Qty: 1 on 12/12/2022 by Sergey Chang MD at [facility] Left Atrial Appendage Occluder Left: Atrial Appendage [employer] 06/11/2027 [id number] / / [id number] Pacemaker Chest [employer] Vascade Mvp 6-12fr Venous Closure [id number] - [id number] Implanted:Qty: 1 on 12/12/2022 by Sergey Chang MD at [facility] [id number] / / [id number] Alem Epic Od9 Mm L40 Mm L110 Cm Otw Radiopaque Self Expand Iliac Artery L75 Cm Stent Vascular Nitinol Accepts .035 In Guidewire 6 Fr Introducer Sheath [id number] - [id number] Implanted:Qty: 1 on 10/24/2024 by Sergey Chang MD at [facility] Dental Kidz Alem 07/23/2025 [id number] / / [id number] Closure Inc Mynx Control 6-7fr 2 Mode Balloon Catheter Sealant Lock Syringe [id number] - [id number] Implanted:Qty: 1 on 10/24/2024 by Sergey Chang MD at [facility] Access Closure Inc 06/16/2026 [id number] / / [id number] Procedures Procedure Name Priority Date/Time Associated Diagnosis Comments DEVICE CHECK - REMOTE Routine 01/24/2025 3:32 PM CDT SSS (sick sinus syndrome) (HCC) Paroxysmal atrial fibrillation (HCC) POCT LIPID PANEL Routine 01/24/2025 3:15 PM CDT Dyslipidemia US DUPLEX SCAN AORTA, IVC ILIAC COMPLETE Schedule Routine, Read Routine (OP Routine) 12/20/2024 2:26 PM CDT Aftercare following surgery of the circulatory system US ARTERIAL DUPLEX LOWER EXTREMITY LEFT LIMITED Schedule Routine, Read Routine (OP Routine) 12/20/2024 2:25 PM CDT PAD (peripheral artery disease) US RYAN Schedule Routine, Read Routine (OP Routine) 12/20/2024 2:25 PM CDT PAD (peripheral artery disease) CTA ABDOMINAL AORTA AND BILATERAL ILIOFEMORAL RUNOFF Schedule Routine, Read Routine (OP Routine) 09/26/2024 3:21 PM MARKET ASSET PROTECTION MANAGER Claudication PAD (peripheral artery disease) from Last 3 Months or Most Recently Relevant to Health Maintenance Results * DEVICE CHECK - REMOTE (01/24/2025 3:32 PM CDT) Anatomical Region Laterality Modality Other Narrative 01/25/2025 4:17 PM CDT Medtronic Dual Pacemaker. Dx; Sinus Node Dysfunction, PAF, [place]. DOI 08/24/2020-Dr Bal Hernandez. [facility]. Routine AAIR<>DDDR Pacemaker Remote. Transmission attached. Battery status: 2.99 V, 9.5 years remaining battery life to SOFIA. Stable lead impedances, pacing and sensing thresholds. Presenting rhythm: AP-VS. AP-95%, AIR BRAKE MECHANIC-<0.1%. 1 AT/AF episode noted, 30 minutes on 01/14/2025. IEGM demonstrates Afib with v-rate up to 153 bpm. AF Edmond <0.1%. 5 Fast A&V episodes noted, iegm's show AT/AF. (3) occurred on 01/14/2025. (1) occurred on 01/01/25 & 01/10/25. 9 Ventricular high rate episodes detected, (7) iegm's demonstrate SVT, 162-190 bpm, max duration 3 seconds. Medications: ASA 81 mg, Plavix, Flecainide, Lopressor. See scanned report. Office pacemaker follow up: 01/17/2026. [facility] remote f/u 04/26/2025. Renita Sanchez, ARIES Sergey Chang MD [facility] PROCEDURES F inal Result * POCT lipid panel (01/24/2025 3:15 PM CDT) Cholesterol, POC 126 mg/dL Comment:GLU = 105 HDL, POC 35 mg/dL Triglycerides, POC 444 mg/dL LDL Cholesterol POC N/A mg/dL Chol/HDL Ratio, POC N/A Non-HDL Cholesterol, POC 92 mg/dL Cholesterol Total, POC 126 mg/dL Capillary blood 01/24/2025 3 :15 PM CDT Veronica Zapata NP POINT OF CARE TEST ORDERABLE S Final Result * US Duplex Scan Aorta, IVC Iliac Complete (12/20/2024 2:26 PM CDT) Anatomical Region Laterality Modality Vascular N/A Ultrasound 12/20/2024 12:5 6 PM CDT Narrative 12/20/2024 3:48 PM CDT Vascular & Vein Surgery [facility] [address] Abdominal Aortic Duplex Ultrasound Report Patient Name: ANDREI BROWN M : 1955 Study Date: 12/20/2024 12:56:48 PM Gender: M Gear Hobber Operator: CRISTOPHER Location: [facility] Ref Provider: KEVIN CAR Quality: Adequate Order Provider: KEVIN CAR PROCEDURES: Arterial Report: Duplex ultrasound imaging of the abdominal aorta. INDICATIONS: S/P stent LCIA 10/24/24; remote hx Lt SFA-Pop BPG (known dist occl) ~40 years ago. MEASUREMENTS: Velocities Value Diameters Value Aorta Prx PSV 50.00 cm/sec Aorta Prx AP Dim 2.69 cm Aorta Mid PSV 41.00 cm/sec Aorta Prx Trans Dim 2.63 cm Aorta Dst PSV 35.00 cm/sec Aorta Mid AP Dim 2.31 cm Rt Com Iliac Prx PSV 60.00 cm/sec Aorta Mid Trans Dim 2.03 cm Rt Com Iliac Dst PSV 165.00 cm/sec Aorta Dst AP Dim 2.41 cm Rt Ext Iliac Prx PSV 104.00 cm/sec Aorta Dst Trans Dim 2.34 cm Rt Ext Iliac Dst PSV 113.00 cm/sec Rt Com Iliac Prx AP Dim 1.18 cm Lt Ext Iliac Prx PSV 157.00 cm/sec Rt Com Iliac Prx Trans Dim 1.37 cm Lt Ext Iliac Dst PSV 122.00 cm/sec Lt Com Iliac Prx AP Dim 1.11 cm Lt Com Iliac Prx Trans Dim 1.11 cm STENTS: Velocities Value Location LCIA Stent Prx PSV 93.00 cm/sec Stent Mid PSV 76.00 cm/sec Stent Dst PSV 75.00 cm/sec FINDINGS: Study Quality: Adequate. Abdominal Aorta: Normal diameter. Flow velocities and spectral waveforms are within normal limits. Left common iliac artery stent is patent. CONCLUSIONS: 1. 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 Patent left common iliac artery stent. ATTESTATION: I have reviewed and interpreted the pertinent images and measurements of this study. I attest to the conclusions in the final report that is provided above. Electronically Signed By: Kevin Car MD 12/20/2024 2:44:12 PM CDT Procedure Note Kevin Car MD - 12/20/2024 Vascular & Vein Surgery [address] [place] [id number] Abdominal Aortic Duplex Ultrasound Report Patient Name: ANDREI BROWN M : 1955 Study Date: 12/20/2024 12:56:48 PM Gender: M Gear Hobber Operator: CRISTOPHER Location: [facility] Ref Provider: KEVIN CAR Quality: Adequate Order Provider: KEVIN CAR PROCEDURES: Arterial Report: Duplex ultrasound imaging of the abdominal aorta. INDICATIONS: S/P stent LCIA 10/24/24; remote hx Lt SFA-Pop BPG (known dist occl) ~40years ago. MEASUREMENTS: Velocities Value Diameters Value Aorta Prx PSV 50.00 cm/sec Aorta Prx AP Dim 2.69 cm Aorta Mid PSV 41.00 cm/sec Aorta Prx Trans Dim 2.63 cm Aorta Dst PSV 35.00 cm/sec Aorta Mid AP Dim 2.31 cm Rt Com Iliac Prx PSV 60.00 cm/sec Aorta Mid Trans Dim 2.03 cm Rt Com Iliac Dst PSV 165.00 cm/sec Aorta Dst AP Dim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 Vital Signs Vital Sign Reading Time Taken Comments Blood Pressure 118/78 01/24/2025 1:09 PM CDT Pulse 71 01/24/2025 1:09 PM CDT Temperature 36.6 C (97.8 F) 10/24/2024 7:22 AM MARKET ASSET PROTECTION MANAGER Respiratory Rate 16 10/24/2024 7:22 AM MARKET ASSET PROTECTION MANAGER Oxygen Saturation 96% 01/24/2025 1:09 PM CDT Inhaled Oxygen Concentration - - Weight 109.5 kg (241 lb 8 oz) 01/24/2025 1:09 PM CDT Height 200.7 cm (6' 7 ) 01/24/2025 1:09 PM CDT Body Mass Index 27.21 01/24/2025 1:09 PM CDT Plan of Treatment Health Maintenance Due Date Last Done Comments Colon Cancer Screening-Colonoscopy 1955 Depression Screening 1955 Hepatitis C Screening 1955 Prostate Cancer Screening-PSA 1957 Lung Cancer Screening 2007 Zoster Vaccine (1 of 2) 2007 Pneumococcal vaccine 65+ (2 of 2 - PPSV23) 12/04/2015 10/09/2015 Well Visit 65+ 2022 Covid-19 Vaccine (5 - 2023-2 5 season) 2024 05/17/2022, 09/06/2021, 01/04/2021, Additional history exists Influenza Vaccine (Season Ended) 2025 08/06/2021, 06/25/2020, 06/12/2020, Additional history exists Fall Risk Assessment 10/24/2025 10/24/2024 DTaP/Tdap/Td Vaccine (2 - Td or Tdap) 01/21/2028 01/20/2018 Hepatitis B Screening Completed 02/12/1998 , 09/11/1997, 07/31/1992 Abdominal Aortic Aneurysm (A AA) Screen Completed 09/26/2024, 09/09/2018 Medical Devices Implanted Type Area Shipping Coordinator Device Identifier Shelf Expiration Date Model / Serial / Lot [employer] Vascade Mvp 6-12fr Venous Closure [id number] - [id number] Implanted:Qty: 1 on 12/12/2022 by Sergey Chang MD at [facility] Collagen Right: Femoral Vein [employer] 08/26/2024 [id number] / / [id number] Harry Vascular Percutaneous Transcatheter Amplatzer Amulet 25mm [id number] - [id number] Implanted:Qty: 1 on 12/12/2022 by Sergey Chang MD at [facility] Left Atrial Appendage Occluder Left: Atrial Appendage Harry V[employer] 06/11/2027 [id number] / / [id number] Pacemaker Chest [employer] Vascade Mvp 6-12fr Venous Closure [id number] - [id number] Implanted:Qty: 1 on 12/12/2022 by Sergey Chang MD at [facility] [id number] / / [id number] Alem Epic Od9 Mm L40 Mm L110 Cm Otw Radiopaque Self Expand Iliac Artery L75 Cm Stent Vascular Nitinol Accepts .035 In Guidewire 6 Fr Introducer Sheath [id number] - [id number] Implanted:Qty: 1 on 10/24/2024 by Sergey Chang MD at [facility] Farecast 07/23/2025 [id number] / / [id number] Access Closure Inc Mynx Control 6-7fr 2 Mode Balloon Catheter Sealant Lock Syringe [id number] - [id number] Implanted:Qty: 1 on 10/24/2024 by Sergey Chang MD at [facility] Access Closure Inc 06/16/2026 [id number] / / [id number] Procedures Procedure Name Priority Date/Time Associated Diagnosis Comments DEVICE CHECK - REMOTE Routine 01/24/2025 3:32 PM CDT SSS (sick sinus syndrome) (HCC) Paroxysmal atrial fibrillation (HCC) POCT LIPID PANEL Routine 01/24/2025 3:15 PM CDT Dyslipidemia US DUPLEX SCAN AORTA, IVC ILIAC COMPLETE Schedule Routine, Read Routine (OP Routine) 12/20/2024 2:26 PM CDT Aftercare following surgery of the circulatory system US ARTERIAL DUPLEX LOWER EXTREMITY LEFT LIMITED Schedule Routine, Read Routine (OP Routine) 12/20/2024 2:25 PM CDT PAD (peripheral artery disease) US RYAN Schedule Routine, Read Routine (OP Routine) 12/20/2024 2:25 PM CDT PAD (peripheral artery disease) CTA ABDOMINAL AORTA AND BILATERAL ILIOFEMORAL RUNOFF Schedule Routine, Read Routine (OP Routine) 09/26/2024 3:21 PM MARKET ASSET PROTECTION MANAGER Claudication PAD (peripheral artery disease) from Last 3 Months or Most Recently Relevant to Health Maintenance Results * DEVICE CHECK - REMOTE (01/24/2025 3:32 PM CDT) Anatomical Region Laterality Modality Other Narrative 01/25/2025 4:17 PM CDT Medtronic Dual Pacemaker. Dx; Sinus Node Dysfunction, PAF, VT. DOI 08/24/2020-Dr Bal Hernandez. [facility] Remote. Routine AAIR<>DDDR Pacemaker Remote. Transmission attached. Battery status: 2.99 V, 9.5 years remaining battery life to SOFIA. Stable lead impedances, pacing and sensing thresholds. Presenting rhythm: AP-VS. AP-95%, AIR BRAKE MECHANIC-<0.1%. 1 AT/AF episode noted, 30 minutes on 01/14/2025. IEGM demonstrates Afib with v-rate up to 153 bpm. AF Edmond <0.1%. 5 Fast A&V episodes noted, iegm's show AT/AF. (3) occurred on 01/14/2025. (1) occurred on 01/01/25 & 01/10/25. 9 Ventricular high rate episodes detected, (7) iegm's demonstrate SVT, 162-190 bpm, max duration 3 seconds. Medications: ASA 81 mg, Plavix, Flecainide, Lopressor. See scanned report. Office pacemaker follow up: 01/17/2026. [facility] remote f/u 04/26/2025. Renita Sanchez, RN Sergey Chang MD [facility] PROCEDURES F inal Result * POCT lipid panel (01/24/2025 3:15 PM CDT) Cholesterol, POC 126 mg/dL Comment:GLU = 105 HDL, POC 35 mg/dL Triglycerides, POC 444 mg/dL LDL Cholesterol POC N/A mg/dL Chol/HDL Ratio, POC N/A Non-HDL Cholesterol, POC 92 mg/dL Cholesterol Total, POC 126 mg/dL Capillary blood 01/24/2025 3 :15 PM CDT Veronica Zapata NP POINT OF CARE TEST ORDERABLE S Final Result * US Duplex Scan Aorta, IVC Iliac Complete (12/20/2024 2:26 PM CDT) Anatomical Region Laterality Modality Vascular N/A Ultrasound 12/20/2024 12:5 6 PM CDT Narrative 12/20/2024 3:48 PM CDT [facility] [address] [place] [address] Abdominal Aortic Duplex Ultrasound Report Patient Name: ANDREI BROWN M : 1955 Study Date: 12/20/2024 12:56:48 PM Gender: M Gear Hobber Operator: CRISTOPHER Location: [facility] Ref Provider: KEVIN CAR Quality: Adequate Order Provider: KEVIN CAR PROCEDURES: Arterial Report: Duplex ultrasound imaging of the abdominal aorta. INDICATIONS: S/P stent LCIA 10/24/24; remote hx Lt SFA-Pop BPG (known dist occl) ~40 years ago. MEASUREMENTS: Velocities Value Diameters Value Aorta Prx PSV 50.00 cm/sec Aorta Prx AP Dim 2.69 cm Aorta Mid PSV 41.00 cm/sec Aorta Prx Trans Dim 2.63 cm Aorta Dst PSV 35.00 cm/sec Aorta Mid AP Dim 2.31 cm Rt Com Iliac Prx PSV 60.00 cm/sec Aorta Mid Trans Dim 2.03 cm Rt Com Iliac Dst PSV 165.00 cm/sec Aorta Dst AP Dim 2.41 cm Rt Ext Iliac Prx PSV 104.00 cm/sec Aorta Dst Trans Dim 2.34 cm Rt Ext Iliac Dst PSV 113.00 cm/sec Rt Com Iliac Prx AP Dim 1.18 cm Lt Ext Iliac Prx PSV 157.00 cm/sec Rt Com Iliac Prx Trans Dim 1.37 cm Lt Ext Iliac Dst PSV 122.00 cm/sec Lt Com Iliac Prx AP Dim 1.11 cm Lt Com Iliac Prx Trans Dim 1.11 cm STENTS: Velocities Value Location LCIA Stent Prx PSV 93.00 cm/sec Stent Mid PSV 76.00 cm/sec Stent Dst PSV 75.00 cm/sec FINDINGS: Study Quality: Adequate. Abdominal Aorta: Normal diameter. Flow velocities and spectral waveforms are within normal limits. Left common iliac artery stent is patent. CONCLUSIONS: 1. 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 Patent left common iliac artery stent. ATTESTATION: I have reviewed and interpreted the pertinent images and measurements of this study. I attest to the conclusions in the final report that is provided above. Electronically Signed By: Kevin Car MD 12/20/2024 2:44:12 PM CDT Procedure Note Kevin Car MD - 12/20/2024 [facility] [address] [place] [id number] Abdominal Aortic Duplex Ultrasound Report Patient Name: ANDREI BROWN M : 1955 Study Date: 12/20/2024 12:56:48 PM Gender: M Gear Hobber Operator: CRISTOPHER Location: [facility] Ref Provider: KEVIN CAR Quality: Adequate Order Provider: KEVIN CAR PROCEDURES: Arterial Report: Duplex ultrasound imaging of the abdominal aorta. INDICATIONS: S/P stent LCIA 10/24/24; remote hx Lt SFA-Pop BPG (known dist occl) ~40years ago. MEASUREMENTS: Velocities Value Diameters Value Aorta Prx PSV 50.00 cm/sec Aorta Prx AP Dim 2.69 cm Aorta Mid PSV 41.00 cm/sec Aorta Prx Trans Dim 2.63 cm Aorta Dst PSV 35.00 cm/sec Aorta Mid AP Dim 2.31 cm Rt Com Iliac Prx PSV 60.00 cm/sec Aorta Mid Trans Dim 2.03 cm Rt Com Iliac Dst PSV 165.00 cm/sec Aorta Dst AP Dim 2.41 cm Rt Ext Iliac Prx PSV 104.00 cm/sec Aorta Dst Trans Dim 2.34 cm Rt Ext Iliac Dst PSV 113.00 cm/sec Rt Com Iliac Prx AP Dim 1.18 cm Lt Ext Iliac Prx PSV 157.00 cm/sec Rt Com Iliac Prx Trans Dim 1.37 cm Lt Ext Iliac Dst PSV 122.00 cm/sec Lt Com Iliac Prx AP Dim 1.11 cm Lt Com Iliac Prx Trans Dim 1.11 cm STENTS: Velocities Value Location LCIA Stent Prx PSV 93.00 cm/sec Stent Mid PSV 76.00 cm/sec Stent Dst PSV 75.00 cm/sec FINDINGS: Study Quality: Adequate. Abdominal Aorta: Normal diameter. Flow velocities and spectral waveforms are within normallimits. Left common iliac artery stent is patent. CONCLUSIONS: 1. 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 Patent left common iliac artery stent. ATTESTATION: I have reviewed and interpreted the pertinent images and measurements ofthis study. I attest to the conclusions in the final report that is provided above. Electronically Signed By: Kevin Car MD 12/20/2024 2:44:12 PM CDT us Kevin Car MD [facility]ED[place] Final Result * US Arterial Duplex Lower Extremity Left Limited (12/20/2024 2:25 PM CDT) Anatomical Region Laterality Modality Vascular Left Ultrasound Specimen (Source)
--- OUTSIDE RECORDS SUMMARY | 2025-02-23 18:17 | XMS_ITS | Clinical Summary ---
Author Organization [facility] Address [address] [place] [address] Care Team Providers Care Leave Manager Name Role Phone Jose Duncan MD Primary Care Provider [phone] Allergies Active Allergy Reactions Criticality Noted Date Comments Codeine Rash Medium 03/26/2020 Iodine Shortness of Breath High 03/26/2020 Medications HYDROcodone-chaya taminophen 10-325 MG tablet Take 1 tablet by mouth every 8 (eight) hours as needed. 0 Active pantoprazole EC 40 MG tablet Take 40 mg by mouth 2 (two) times daily. 0 Active gabapentin 600 MG tablet Take 600 mg by mouth daily. 9 Active clopidogrel 75 MG tablet Take 75 mg by mouth daily. 0 Active potassium chloride CR 20 MEQ tablet Take 20 mEq by mouth daily. 9 Active ibuprofen 800 MG tablet TAKE ONE tablet THREE TIMES daily as needed 9 Active atorvastatin 10 MG tablet TAKE ONE TABLET EVERY DAY FOR CHOLESTEROL 9 Active DULoxetine 60 MG capsule Take 60 mg by mouth 2 (two) times daily. 0 Active nitroglycerin 0.[address] 0.4 mg under the tongue every 5 (five) minutes as needed for Chest Pain. Active albuterol sulfate HFA 108 (90 Base) MCG/ACT inhaler Inhale 2 puffs into the lungs. 0 Active albuterol (2.5 MG/3ML) 0.083% nebulizer solution Take 3 mL (2.5 mg total) by nebulization every 6 (six) hours as needed for wheezing 0 Active budesonide-form oterol (SYMBICORT) 160-4.5 MCG/ACT inhaler Inhale 2 puffs into the lungs 2 (two) times daily. 0 Active tiZANidine 4 MG tablet Take 4 mg by mouth every 8 (eight) hours as needed. 0 Active SPIRIVA HANDIHALER [address] 1 capsule into inhaler and inhale once daily 0 Active clonazePAM 1 MG tablet TAKE 1 TO 2 TABLETS BY MOUTH THREE TIMES DAILY do not exceed FOUR TABLETS daily 0 Active diphenhydrAMINE 25 MG tablet Take 2 tablets (50 mg total) by mouth 3 (three) times daily for 2 days prior to procedure and the morning of the procedure. 14 tablet 0 Active METOPROLOL TARTRATE 25 MG tablet Take 0.5 tablets (12.5 mg total) by mouth 2 (two) times daily. 180 tablet 1 1 Active FLECAINIDE 50 MG tablet Take 1 tablet (50 mg total) by mouth 2 (two) times daily. 60 tablet 1 Active losartan 50 MG tablet Take 1.5 tablets (75 mg total) by mouth daily. 45 tablet 3 1 Active Active Problems Problem Noted Date Diagnosed Date Bradycardia 07/31/2020 NSVT (nonsustained ventricul ar tachycardia) ([facility]) 07/31/2020 Coronary artery disease invo lving [place] coronary artery of [place] heart without angina pectoris 07/31/2020 SOB (shortness of breath) 07/31/2020 Other fatigue 07/31/2020 Family History Medical History Relation Comments Heart Attack Brother Stent Cardiac Brother Heart Attack Father Heart Disease Father Stroke Father Cancer Mother Osteoporosis Mother Relation Status Comments Brother Father Mother Social History Tobacco Use Types Packs/Day Years Used Date Smoking Tobacco: Every Day Cigarettes 0.3 40 Smokeless Tobacco: Current Chew Alcohol Use Standard Drinks/Week Comments Not Currently 0 (1 standard drink = 0.6 oz pur e alcohol) AUDIT-C Answer Date Recorded Q1: How often do you have a drink containing alc ohol? Never 03/27/2020 Average Number of Drinks Not on file 020 Frequency of Binge Drinking Not on file 03/12 Sex and Gender Information Value Date Recorded Sex Assigned at Not on file Legal Sex Male 2:50 AM CDT Gender Identity Not on file Sexual Orientation Not on file Last Filed Vital Signs Vital Sign Reading Time Taken Comments Blood Pressure 154/92 09/10/2020 1:09 PM PICKLE MAKER Pulse 93 09/10/2020 1:09 PM PICKLE MAKER Temperature 36.9 C (98.4 F) 06/04/2020 1:13 PM CDT Respiratory Rate 20 07/31/2020 12:00 PM CDT Oxygen Saturation 97% 09/10/2020 1:09 PM PICKLE MAKER Inhaled Oxygen Concentration - - Weight 110.7 kg (244 lb) 09/10/2020 1:09 PM PICKLE MAKER Height 200.7 cm (6' 7 ) 09/10/2020 1:09 PM PICKLE MAKER Body Mass Index 27.49 09/10/2020 1:09 PM PICKLE MAKER Plan of Treatment Health Maintenance Due Date Last Done Comments ASCVD LDL 1955 ASCVD Statin 1955 Colorectal Cancer Screening Colonoscopy (10 Years) 1955 Hepatitis C 1975 Zoster Vaccines (1 of 2) 2007 Pneumococcal Vaccine: 50+ Years (2 of 2 - PPSV23) 12/04/2015 10/09/2015 RSV Immunization or 60+ Years (1 - Risk 60-74 years 1-dose series) 2017 COVID-19 Vaccine ( season) 2024 05/17/2022, 09/06/2021, 01/04/2021, Additional history exists DTaP, Tdap and Td Vaccines (2 - Td or Tdap) 01/21/2028 01/20/2018 Meningococcal B Vaccine Aged Out No l onger eligible based on patient's age to complete this topic Meningococcal Vaccine Aged Out No ky shon eligible based on patient's age to complete this topic RSV Immunizations Under 20 Months Aged Out No longer eligible based on patient's age to complete this topic Medical Devices Implanted Type Area Clothes Model Device Identifier Shelf Expiration Date Model / Serial / Lot Ra Lead Implant-2019 Implanted:Qty: 1 on 08/24/2020 by Edwar Harry MD Lead Implant Right: Atrium [employer] CARDIAC RHYTHM AND HEART FAILURE - DIV M 5076-52 / [id number] / Rv Lead Implant-2019 Implanted:Qty: 1 on 08/24/2020 by Edwar Harry MD Lead Implant Right: Ventricle [employer] CARDIAC RHYTHM AND HEART FAILURE - DIV M 5076-58 / [id number] / Kelli Xt Mri Pacemaker Medtronic-08/12 Implanted:08/12 by Edwar Harry MD (Quantity not on file) Chest [employer] [id number] / [id number] / Description:MRI Conditional under following conditions: Static magnetic field of 1.5 T or 3 T, Max spatial gradient field of 2000 gauss/cm or less, Max slew rate 200 T/m/s, 1.5 T whole body NANCY of 2 W/kg or less in Normal operating mode , Head NANCY 3.2 W/kg or less, 3T B1+BETY must be 2.8 mT or less when isocenter is inferior to C7, No B1+BETY restriction at 3T when isocenter is at or superior to C7, Supine or Prone only Insurance [facility] [place] [id number] [place] Care Teams Leave Manager Relationship Specialty Start Date End Date Jose Duncan MD [address] [place] [address] PCP - General 07/02/24
--- OUTSIDE RECORDS SUMMARY | 2025-02-23 18:17 | XMS_ITS | Clinical Summary ---
Author Organization [facility] Address [address] [facility] [place] [address] Care Team Providers Care Neurologist Name Role Phone Jose Duncan MD Primary Care Provider [phone] Source Comments [facility],non-owned Affiliates and Associated Physician Practices is amultiple site organization consisting of ambulatory clinics and hospital sitesin [place], [place], [place] and [place]. This disclosure is being madepursuant to the Care Everywhere program and may not contain all information available regarding this patient. Last updated 18.[facility] Allergies No known active allergies Medications * Be aware that medications may not be up to date on this document. Alwaysverify current medications with the patient. flecainide (TAMBOCOR) 50 MG tablet Take 1 (one) tablet by mouth 2 times daily 1 Active ibuprofen (MOTRIN) 800 MG tablet Take 1 (one) tablet by mouth 3 times daily as needed For pain. 2 Active omeprazole (PRILOSEC) 20 MG capsule Take 1 (one) capsule by mouth once daily 2 Active polyethylene glycol 3350 (MIRALAX) 17 GM/SCOOP powder every morning 2 Active tamsulosin (FLOMAX) 0.4 MG capsule Take 1 (one) capsule by mouth once daily 2 Active clopidogrel (PLAVIX) 75 MG tablet Take 1 (one) tablet by mouth once daily 1 Active HYDROcodone-letty taminophen (NORCO) 10-325 MG tablet Take 1 (one) tablet by mouth 4 times daily 2 Active meclizine (ANTIVERT) 25 MG tablet Take 1 (one) tablet by mouth 3 times daily as needed 1 Active atorvastatin (LIPITOR) 10 MG tablet Take 1 (one) tablet by mouth at bedtime 2 Active SYMBICORT 160-4.5 MCG/ACT inhaler Inhale 2 puffs 2 (two) times a day Rinse mouth with water after use to reduce aftertaste and incidence of candidiasis. Do not swallow. 2 Active clonazePAM (KLONOPIN) 1 MG tablet Take 1 (one) tablet by mouth 3 times daily 2 Active DULoxetine (CYMBALTA) 60 MG capsule Take 1 (one) capsule by mouth every morning 2 Active losartan (COZAAR) 50 MG tablet Take 1 (one) tablet by mouth once daily 1 Active metoprolol tartrate IR (LOPRESSOR) 25 MG tablet Take 1 (one) tablet by mouth 2 times daily 1 Active potassium chloride ER (KLOR-CON M) 20 MEQ tablet Take 1 (one) tablet by mouth every morning 2 Active tadalafil (CIALIS) 5 MG tablet Take 1 (one) tablet by mouth once daily 2 Active tiZANidine (ZANAFLEX) 4 MG tablet Take 1 (one) tablet by mouth as needed 1 Active albuterol (PROVENTIL;VENT GERMAN) (2.5 MG/3ML) 0.083% nebulizer solution INHALE THE CONTENTS OF 1 VIAL VIA NEBULIZER EVERY 6 HOURS NEEDED FOR SHORTNESS OF BREATH 2 Active busPIRone (Buspar) 15 MG tablet Take 1 tablet (15 mg total) by mouth 2 (two) times a day 2 Active predniSONE (Deltasone) 20 MG tablet 2 Active Spiriva HandiHaler [address] 1 capsule into inhaler and inhale daily IN HANDIHALER DEVICERINSE MOUTH AFTER USE 2 Active gabapentin (Neurontin) 600 MG tablet Take 1 (one) tablet by mouth 3 times daily 3 Active vitamin D, ergocalciferol, (Drisdol) 1.25 MG (23810 UT) capsuleIndicati ons:Low vitamin D level,Low folate TAKE 1 CAPSULE BY MOUTH ONE TIME PER WEEK 4 capsule 11 3 Active folic acid (Folvite) 1 MG tabletIndicatio ns:Low vitamin D level,Low folate TAKE 1 TABLET BY MOUTH EVERY DAY 30 tablet 14 3 Active Active Problems Problem Noted Date Diagnosed Date A-fib 12/12/2022 Frequent falls 08/21/2022 H/O: CVA (cerebrovascular accident) 08/21/2022 Medical contraindication to anticoagulant medica tion 08/21/2022 Daytime sleepiness 06/30/2022 Inadequate sleep hygiene 06/30/2022 Unrefreshed by sleep 06/30/2022 Sleep talking 06/30/2022 Nocturnal sleep-related eating disorder 06/30/20 Nightmares 06/30/2022 Confusional arousals 06/30/2022 Dream enactment behavior 06/30/2022 SOB (shortness of breath) on exertion 06/25/2022 Cardiac pacemaker in situ 06/05/2021 Overview (04/11/2022): Medtronic Dual Pacemaker. Dx; Sinus Node Dysfunction. DOI 08/24/2020-Dr Bal Hernandez. [facility] Remote transfer request submitted. History of fall 02/05/2021 Overview (04/11/2022): Last Assessment & Plan: Apparently patient fell at home prior to [...] rib fractures noted on imaging from 02/04 Last Assessment & Plan: Apparently patient fell at home prior to [...] on imaging from 02/04 Pleural effusion 02/04/2021 Overview (04/11/2022): Last Assessment & Plan: Left sided pleural effusion, Hx open plication [...] the OR. 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 Patient fell at home prior to admission (02/03) but neglected to left [facility] know when admitted - left hemithorax noted once chest tube placed with recovered 2530 ml of serosanginous fluid obtained -Monitor CT OP -plavix on hold for now -H/H stable -Covid negative at OSH 02/04, copy in media -O2 as needed (wears home O2 at 2l/m) Atelectasis 11/02/2020 Overview (04/11/2022): Last Assessment & Plan: - noted on post op CXR - very congested sounding cough - pul toileting today Chronic pain 11/01/2020 Overview (04/11/2022): Last Assessment & Plan: - cont medications - monitor Last Assessment & Plan: - FUELER/epidural - cont neurontin Chronic respiratory failure 11/01/2020 Overview (04/11/2022): Last Assessment & Plan: R/T COPD - home O2 at 2l/m No acute decompensation noted Last Assessment & Plan: Hx COPD, home O2 use at night - Cont inhalers COPD (chronic obstructive pulmonary disease) Overview (04/11/2022): Last Assessment & Plan: - cont home inhaler - Home O2 Last Assessment & Plan: Wear O2 at night. Cont to smoke - wean daytime O2 as tolerated - cont inhalers - pulmonary toileting CVA (cerebral vascular accident) 11/01/2020 Overview (06/25/2022): Last Assessment & Plan: Hx of and was on plavix and it has been held since previous admisstion Last Assessment & Plan: high-grade stenosis noted at the left posterior inferior cerebellar artery at the junction of the basilar artery. Maintained on clopidogrel and atorvastatin for this reason. 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 Incision well-healed. -See pleural effusion Last Assessment & Plan: S/p open plication 11/01/20. Incision well-healed. -See pleural effusion Coronary artery disease invo lving [place] coronary artery of [place] heart without angina pectoris 07/31/2020 NSVT (nonsustained ventricular tachycardia) 07/13 Overview (04/11/2022): Last Assessment & Plan: - Cont home medications Added automatically from request for surgery [id number] Last Assessment & Plan: Has history of and has PPM - Cont BB as BP tolerates - flecainide continued Chronic fatigue 07/31/2020 SOB (shortness of breath) 07/31/2020 Bradycardia 07/31/2020 Benign prostatic hyperplasia with urinary obstru ction 12/30/2018 Overview (04/11/2022): Added automatically from request for surgery [id number] Headache syndrome, complicated 09/20/2017 Dyslipidemia 09/19/2017 Overview (04/11/2022): Last Assessment & Plan: Lipid panel and statin started Dysuria 05/19/2017 Pelvic and perineal pain 05/14/2017 Encounter for screening for malignant neoplasm o f prostate 05/14/2017 Cervical radicular pain 03/02/2017 GERD (gastroesophageal reflux disease) 7 Overview (04/11/2022): Last Assessment & Plan: pepcid History of cancer tonsil 07/28/2016 Sensorineural hearing loss (SNHL) of both ears 0 06/17/2016 Allergic rhinitis 03/28/2016 History of colonic polyps 12/07/2015 Chronic diarrhea 06/19/2015 Erectile dysfunction 01/04/2015 Urinary incontinence 08/17/2013 Neuralgia 12/16/2012 Gout 05/21/2012 Rheumatoid arthritis of [facility] with negative rheumatoid factor 01/30/2010 Dysthymic disorder 01/25/2010 Tobacco use disorder 08/28/2006 Essential (primary) hypertension 04/06/2006 Overview (04/11/2022): Last Assessment & Plan: Monitor bp treat if sbp>220 Awaiting neurology recommendations 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 Degeneration of lumbar or lumbosacral interverte bral disc 12/27/2004 Overview (04/11/2022): Last Assessment & Plan: Pain meds prn Mitral valve disorder 12/27/2004 Panic disorder without agoraphobia 12/27/2004 Spinal stenosis, sacral and sacrococcygeal regio n 12/27/2004 Immunizations Immunization Administration Dates Next Due Covid Moderna primary monovalent 12+ yr 0.5mL ,12/07/2020 Covid Pfizer primary monoval ent 12+ yr 0.3mL Purple cap 05/17/2022,09/06/2021 INFLUENZA VACCINE 06/12/2020 TDAP (7yrs+) 01/20/2018 Family History Medical History Relation Name Comments CAD (Coronary Artery Disease) Brother Hypertension Brother CAD (Coronary Artery Disease) Father 101 Anxiety Disorder Mother 77 Cancer - Bladder Mother 77 Depression Mother 77 Thyroid Disease Mother 77 Anxiety Disorder Sister Depression Sister Relation Name Status Comments Brother Father 101 Mother 77 Sister Alive Social History Tobacco Use Types Packs/Day Years Used Date Smoking Tobacco: Every Day Cigarettes 2 54.4 Started: 1970 Smokeless Tobacco: Current Chew Comments:quit age 20-27, max 3ppd 10-12 yr, 2ppd 10 yr, 1 ppd 3 yr, chew 1/2 can/d Alcohol Use Standard Drinks/Week Comments Never 0 (1 standard drink = 0.6 oz pur e alcohol) Education Answer Date Recorded What is the highest level of school you have completed or the highest degree you have received? 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 Not on file Not on file Not on file Last Filed Vital Signs Vital Sign Reading Time Taken Comments Blood Pressure 111/74 12/31/2022 11:28 AM CDT Pulse 69 12/31/2022 11:28 AM CDT Temperature 36.6 C (97.9 F) 12/31/2022 11:28 AM CDT Respiratory Rate 18 12/31/2022 11:28 AM CDT Oxygen Saturation 98% 12/31/2022 11:28 AM CDT Inhaled Oxygen Concentration - - Weight 112 kg (247 lb) 12/31/2022 11:28 AM CDT Height 200.7 cm (6' 7 ) 12/19/2022 10:50 AM PREMIUM NOTE INTEREST CALCULATOR CLERK Body Mass Index 27.83 12/19/2022 10:50 AM PREMIUM NOTE INTEREST CALCULATOR CLERK Plan of Treatment Health Maintenance Due Date Last Done Comments COLOGUARD (AGES 45-75) - COLON CA SCREENING 1957 COLON MONITORING 1957 COLONOSCOPY - COLON CA SCREENING 1957 CT COLONOGRAPHY - COLON CA SCREENING 1957 Colorectal Cancer Screening 1957 FIT - COLON CA SCREENING 1957 FLEX SIG - COLON CA SCREENING 1957 HEPATITIS C SCREENING 09/24/1975 PNEUMOCOCCAL VACCINE 50+ (1 of 2 - PCV) 1976 LUNG CANCER SCREENING 2007 ZOSTER VACCINE (1 of 2) 2007 Respiratory Syncytial Virus (RSV) Vaccine Pt: or over 60 yrs (1 - Risk 60-74 years 1-dose series) 2017 SCREENING FOR DIABETES 04/11/2022 AAA SCREENING 2022 COVID-19 VACCINE ( season) 2024 05/17/2022, 09/06/2021, 01/04/2021, Additional history exists DEPRESSION SCREENING 10/12/2024 INFLUENZA VACCINE (Season Ended) 2025 06/12/2020 DTAP/TDAP/TD VACCINES (2 - Td or Tdap) 01/21/2028 01/20/2018 HEPATITIS B VACCINE Aged Out No longe r eligible based on patient's age to complete this topic HIB VACCINE Aged Out No longer eligi ble based on patient's age to complete this topic HPV VACCINE Aged Out No longer eligi ble based on patient's age to complete this topic MENINGOCOCCAL (Group B) VACCINE SHARED DECISION-MAKING Aged Out No longer eligible based on patient's age to complete this topic MENINGOCOCCAL GROUPS A/C/Y/W VACCINE Aged Out No longer eligible based on patient's age to complete this topic Medical Devices Implanted Type Area Equipment [id number] Device Identifier Shelf Expiration Date Model / Serial / Lot Medtronic Pacemaker; Mri Conditional 1.5t Or 3t [id number] / [id number] / Insurance [facility] MEDICARE MANAGED CARE PLAN GENERIC MEDICARE ADV [facility] Care Teams Neurologist Relationship Specialty Start Date End Date Jose Duncan MD [address] [place] [address] PCP - General 01/27/22
--- OUTSIDE RECORDS SUMMARY | 2025-02-23 18:17 | XMS_ITS | Encounter Summary ---
Author Organization [facility] Address [address] [place] [address] Care Team Providers Care Supervisor Firearms Name Role Phone Kermit Hernandez MD Primary Care Provider [phone] Jose Duncan MD Primary Care Provider [phone] Encounter Details Date Type Department Care Team (Late st Contact Info) Description 02/08/2021 Rundown App Message Enc [facility] [address] [place] [address] Jodie Hunt NP [address] [place] [address] RE: Follow Up/Update Social History Tobacco Use Types Packs/Day Years [...] on file Sexual Orientation Not on file documented as of this encounter Progress Notes * Jodie Hunt NP - 02/08/2021 11:04 AM CDT He will call back. documented in this encounter Plan of Treatment Not on file documented as of this encounter Visit Diagnoses Not on filedocumented in this encounter Care Teams Supervisor Firearms Relationship Specialty Start Date End Date Kermit Hernandez MD PCP - General FAMILY PRACTICE 09/21/17 07/01/24 Jose Duncan MD [address] [place] [address] PCP - General 07/02/24 documented as of this encounter
--- OUTSIDE RECORDS SUMMARY | 2025-02-23 18:18 | XMS_ITS | Continuity of Care Document ---
Author Organization [facility] Address [address] [place] [address] Phone Care Team Providers Care Business Applications Manager Name Role Phone [facility] Unavailable Unavailable Procedures Procedure Date WHO, Wrist Extension Control Cock-up, No nmolded, P Slings Advance Directives Directive Yes / No Effective Date File Name No Information Encounters Encounter Description Practice Location Reason(s) For Visit Diagnoses Date Provider Providers Copied on Encounter [facility], [address], [place], [address], tel:[phone] [facility] No Information 9 [facility]. [address], [place], [address], [place]. tel:[phone] Referring Provider: Carlos Reynoso, [address] [place], [address] . tel:[phone] [facility], [address], [place], [address], tel:[phone] [facility] No Information 9 [facility]. [address], [place], [address], [place]. tel:[phone] Referring Provider: Carlos Reynoso, [address] [place], [address] . tel:[phone] Family History Family Member Type Diagnosis Age At Onset No Information Payers Payer name Insurance type Covered constitution party ID Authoriza tion(s) No Information Social History Type Description Quantity Date Captured Comments Sex Male Smoking Status No Information Chief Complaint And Reason For Visit No Information Reason For Referral Reason For Referral No Information History Of Present Illness Encounter Date Complaint History Of Prese nt Illness No Information Functional Status Date Functional Assessmen t No Information Instructions Date Instruction Additional Infor mation No Information Assessments Type Assessment Date No Information Patient Care Teams Name Effective Dates (start - stop) Status Members No Information
--- OUTSIDE RECORDS SUMMARY | 2025-02-23 18:18 | XMS_ITS | Continuity of Care Document ---
Author Organization [facility] Address [address] [place] [address] Phone Care Team Providers Care Nursery Supervisor Name Role Phone Nathanael Hernandez DO Unavailable Unavailable Allergies, Adverse Reactions, Alerts Substance Reaction Status Criticality Iodinated Contrast Media Active No Information codeine Active No Information Medications Medication Instructions Dosage Effective Dates (start - stop) Status Comments CLONAZEPAM (unknown strength) Not Available - Active HYDROCODONE-ACETAMINOPHEN (unknown strength) Not Available - Active GABAPENTIN (unknown strength) Not Available - Active ZAFIRLUKAST (unknown strength) Not Available - Active TIZANIDINE HCL (unknown strength) Not Available - Active CYMBALTA (unknown strength) Not Available - Active HYDROCHLOROTHIAZIDE (unknown strength) Not Available - Active TOPAMAX (unknown strength) Not Available - Active IBUPROFEN (unknown strength) Not Available - Active Procedures Procedure Date Copies Of Medical Records CT Cervical Spine WO Contrast 4 Office/outpatient visit,[facility] 2013 Office/outpatient visit,[facility], [facility] 2008 Office/outpatient visit,[facility], [facility] 2008 X-ray exam of wrist, complete 9 Removal of wrist bones Carpal tunnel surgery Office/outpatient visit,est, [facility] 2008 Office/outpatient visit,[facility], [facility] 2008 X-ray exam of wrist, complete 9 Advance Directives Directive Yes / No Effective Date File Name No Information Encounters Encounter Description Practice Location Reason(s) For Visit Diagnoses Date Provider Providers Copied on Encounter [facility], [address] [place] [address], [id number], tel:[phone] [facility] No Information 5 David Huffman. [address] [place] [address], [id number] , . tel:[phone] [facility], [address] [place] [address], [id number], tel:[phone] [facility] No Information 0 4 David Huffman. [address] [place] [address], [id number] , . tel:[phone] Referring Provider: Nathanael San, [address] [place], [address] . tel:[phone] Office/outpat ient visit,new, low [facility], [address] [place] [address], [id number], tel:[phone] [facility] cervical spine pain (chief complaint)c ervical spine (chief complaint) Cervicalgia- Pain In Neck 0 4 David Huffman. [address] [place] [address], [id number] , [place]. tel:[phone] Office/outpat ient visit,est, mod [facility], [address] [place] [address], [id number], tel:[phone] [facility] No Information 9 Rayna Tavarez. [address] [place] [address], [id number], [place]. [phone] Referring Provider: Carlos Reynoso, [place], [address]. tel:[phone] Office/outpat ient visit,[facility], [facility], [address] [place] [address], [id number], tel:[phone] [facility] No Information 1 9 Shakir Gonzalez. [address] [place] [address], [id number] , . [phone] Referring Provider: Carlos Reynoso, [address] [place], [address]. tel:[phone] [facility], [address] [place] [address], [id number], tel:[phone] [facility] No Information 9 Erthall Jhony. [address] [place] [address], [id number] , . tel:[phone] Referring Provider: Carlos Reynoso, [address] [place], [address]. tel:[phone] [facility], [address] [place] [address], [id number], [phone] [facility] No Information 9 Shakir Gonzalez. [address] [place] [address], [id number] , . tel:[phone] Office/outpat ient visit,[facility], [facility], [address] [place] [address], [id number], [phone] [facility] No Information 9 Shakir Gonzalez. [address] [place] [address], [id number] , . tel:[phone] Referring Provider: Carlos Reynoso, [address] [place] [address], [id number]. tel:[phone] Office/outpat ient visit,[facility], [facility], [address] [place] [address], [id number], [phone] [facility] No Information 9 Erthall Jhony. [address] [place] [address], [id number] , . [phone] Referring Provider: Carlos Reynoso, [address] [place] [address], [id number] . tel:[phone] Family History Family Member Type Diagnosis Age At Onset Problem (finding) Family history of coronary arteriosclerosis Payers Payer name Insurance type Covered alliance party ID Authoriza tion(s) No Information Social History Type Description Quantity Date Captured Comments Sex Male Smoking Status No Information Chief Complaint And Reason For Visit No Information Reason For Referral Reason For Referral No Information Plan Of Treatment Date Type Action Status Referral Ordered: CT Cervical Spine WO Contrast Appointment date/timeframe: 08/31/2014 ordered History Of Present Illness Encounter Date Complaint History Of Prese nt Illness cervical spine pain Onset: sudde n. Duration: > 1 hour. Location of pain is bilateral posterior neck. The patient describes the pain as aching, discomforting and stabbing. Aggravating factors include bending and exertion. Pertinent negatives include rash. cervical spine He states that t he symptoms have been chronic traumatic. Functional Status Date Functional Assessmen t No Information Instructions Date Instruction Additional Infor conor Patient was educated on the diagnosis and treatment plan. Related to Cervicalgia- Pain In Neck Assessments Type Assessment Date No Information Patient Care Teams Name Effective Dates (start - stop) Status Members No Information
[2025-02-23 18:35] VITALS: BP 150/90; PULSE 84; RESP 17; TEMP 36.6; O2SAT 98
--- OUTSIDE RECORDS SUMMARY | 2025-02-23 19:37 | XMS_ITS | Encounter Summary ---
Author Organization [facility] Address [address] [place] [address] Care Team Providers Care Dedicated Driver Name Role Phone Kermit Hernandez MD Primary Care Provider [phone] Jose Duncan MD Primary Care Provider [phone] Encounter Details Date Type Department Care Team (Late st Contact Info) Description 02/08/2021 Moodyo Message Enc [facility] [address] [place] [address] Jodie Hunt NP [address] [place] [address] RE: Follow Up/Update Social History [...] on filedocumented in this encounter Care Teams Dedicated Driver Relationship Specialty Start Date End Date Kermit Hernandez MD PCP - General FAMILY PRACTICE 09/21/17 07/01/24 Jose Duncan MD [address] [place] [address] PCP - General 07/02/24 documented as of this encounter
--- OUTSIDE RECORDS SUMMARY | 2025-02-23 19:37 | XMS_ITS | Continuity of Care Document ---
Author Organization [facility] Address [address] [place] [address] Phone Care Team Providers Care Roll Up Guider Operator Name Role Phone Nathanael Hernandez DO Unavailable [...] CT Cervical Spine WO Contrast 4 Office/outpatient visit,[facility] 2013 Office/outpatient visit,[facility], [facility] 2008 Office/outpatient visit,[facility], [facility] 2008 X-ray exam of wrist, complete 9 Removal of wrist bones Carpal tunnel surgery Office/outpatient visit,est, [facility] 2008 Office/outpatient visit,[facility], [facility] 2008 X-ray exam of wrist, complete 9 Advance Directives Directive Yes / No Effective Date File Name No Information Encounters Encounter Description Practice Location Reason(s) For Visit Diagnoses Date Provider Providers Copied on Encounter [facility], [address] [place] [address], [id number], tel:[phone] [facility] No Information 5 David Huffman. [address] [place] [address], [id number] , . tel:[phone] [facility], [address] [place] [address], [id number], tel:[phone] [facility] No Information 0 4 David Huffman. [address] [place] [address], [id number] , . tel:[phone] Referring Provider: Nathanael San, [address] [place], [address] . tel:[phone] Office/outpat ient visit,new, low [facility], [address] [place] [address], [id number], tel:[phone] [facility] cervical spine pain (chief complaint)c ervical spine (chief complaint) Cervicalgia- Pain In Neck 0 4 David Huffman. [address] [place] [address], [id number] , [place]. tel:[phone] Office/outpat ient visit,est, mod [facility], [address] [place] [address], [id number], tel:[phone] [facility] No Information 9 Rayna Tavarez. [address] [place] [address], [id number], [place]. [phone] Referring Provider: Carlos Reynoso, [place], [address]. tel:[phone] Office/outpat ient visit,[facility], [facility], [address] [place] [address], [id number], tel:[phone] [facility] No Information 1 9 Shakir Gonzalez. [address] [place] [address], [id number] , . [phone] Referring Provider: Carlos Reynoso, [address] [place], [address]. tel:[phone] [facility], [address] [place] [address], [id number], tel:[phone] [facility] No Information 9 Erthall Jhony. [address] [place] [address], [id number] , . tel:[phone] Referring Provider: Carlos Reynoso, [address] [place], [address]. tel:[phone] [facility], [address] [place] [address], [id number], [phone] [facility] No Information 9 Shakir Gonzalez. [address] [place] [address], [id number] , . tel:[phone] Office/outpat ient visit,[facility], [facility], [address] [place] [address], [id number], [phone] [facility] No Information 9 Shakir Gonzalez. [address] [place] [address], [id number] , . tel:[phone] Referring Provider: Carlos Reynoso, [address] [place] [address], [address]. tel:[phone] Office/outpat ient visit,[facility], [facility], [address] [place] [address], [id number], [phone] [facility] No Information 9 Erthall Jhony. [address] [place] [address], [id number] , . [phone] Referring Provider: Carlos Reynoso, [address] [place] [address], [id number] . tel:[phone] Family History Family Member Type Diagnosis Age At Onset Problem (finding) Family history of coronary arteriosclerosis Payers Payer name Insurance type Covered constitution [...]
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
--- OUTSIDE RECORDS SUMMARY | 2025-02-23 19:37 | XMS_ITS | Clinical Summary ---
Author Organization [facility] Address [address] [place] [address] Care Team Providers Care Skate Maker Name Role Phone Jose Duncan MD Primary Care Provider [phone] Source Comments [facility],non-owned Affiliates and Associated Physician Practices is amultiple site organization consisting of ambulatory clinics and hospital sitesin [place], [place], [place] and [place]. This disclosure is being madepursuant to the Care Everywhere program and may not contain all information available regarding this patient. Last updated 18.[facility] Allergies No known active allergies Medications * [...] Active vitamin D, ergocalciferol, (Drisdol) 1.25 MG (62133 UT) capsuleIndicati ons:Low vitamin D level,Low folate [...] Sinus Node Dysfunction. DOI 08/24/2020-Dr Bal Hernandez. [facility] Remote transfer request submitted. 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 Chronic respiratory failure 11/01/2020 [...] pleural effusion Coronary artery disease invo lving [place] coronary artery of [place] heart without angina pectoris 07/31/2020 NSVT (nonsustained ventricular tachycardia) 07/13 Overview (04/11/2022): Last Assessment & Plan: - Cont home medications Added automatically from request for surgery [id number] Last Assessment & Plan: Has history of and has PPM - Cont BB as BP tolerates - flecainide continued Chronic fatigue 07/31/2020 SOB (shortness of breath) 07/31/2020 Bradycardia 07/31/2020 Benign prostatic hyperplasia with urinary obstru ction 12/30/2018 Overview (04/11/2022): Added automatically from request for surgery [id number] Headache syndrome, complicated 09/20/2017 Dyslipidemia 09/19/2017 Overview [...] Neuralgia 12/16/2012 Gout 05/21/2012 Rheumatoid arthritis [facility] with negative rheumatoid factor 01/30/2010 Dysthymic [...] on file Legal Sex Male 11:59 AM TOP FLAVOR ATTENDANT Gender Identity Not on file Sexual Orientation Not on file 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 Date Job End Date 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 Not on file Not [...] cm (6' 7 ) 12/19/2022 10:50 AM TOP FLAVOR ATTENDANT Body Mass Index 27.83 12/19/2022 10:50 AM TOP FLAVOR ATTENDANT Plan of Treatment Health Maintenance Due Date [...] this topic Medical Devices Implanted Type Area Chief Nurse Executive Device Identifier Shelf Expiration Date Model / Serial / Lot Medtronic Pacemaker; Mri Conditional 1.5t Or 3t [id number] / [id number] / Insurance [facility] MEDICARE MANAGED CARE PLAN GENERIC MEDICARE ADV [facility] Care Teams Skate Maker Relationship Specialty Start Date End Date Jose Duncan MD [address] [place] [address] PCP - General 01/27/22
--- OUTSIDE RECORDS SUMMARY | 2025-02-23 19:37 | XMS_ITS | Clinical Summary ---
Author Organization [facility] Address [address] [place] [address] Care Team Providers Care Oven Technician Name Role Phone Jose Duncan MD Primary Care Provider [phone] Allergies Active Allergy Reactions Criticality Noted Date [...] Bradycardia 07/31/2020 NSVT (nonsustained ventricul ar tachycardia) ([facility]) 07/31/2020 Coronary artery disease invo lving [place] coronary artery of [place] heart without angina pectoris 07/31/2020 SOB (shortness [...] Comments Blood Pressure 154/92 09/10/2020 1:09 PM EDUCATION REPORTER Pulse 93 09/10/2020 1:09 PM EDUCATION REPORTER Temperature 36.9 C (98.4 F) 06/04/2020 1:13 PM CDT Respiratory Rate 20 07/31/2020 12:00 PM CDT Oxygen Saturation 97% 09/10/2020 1:09 PM EDUCATION REPORTER Inhaled Oxygen Concentration - - Weight 110.7 kg (244 lb) 09/10/2020 1:09 PM EDUCATION REPORTER Height 200.7 cm (6' 7 ) 09/10/2020 1:09 PM EDUCATION REPORTER Body Mass Index 27.49 09/10/2020 1:09 PM EDUCATION REPORTER Plan of Treatment Health Maintenance Due Date [...] this topic Medical Devices Implanted Type Area Regional Guide Device Identifier Shelf Expiration Date Model / Serial / Lot Ra Lead Implant-2019 Implanted:Qty: 1 on 08/24/2020 by Edwar Harry MD Lead Implant Right: Atrium MEDTRONIC CARDIAC RHYTHM AND HEART FAILURE - DIV M 5076-52 / [id number] / Rv Lead Implant-2019 Implanted:Qty: 1 on 08/24/2020 by Edwar Harry MD Lead Implant Right: Ventricle MEDTRONIC CARDIAC RHYTHM AND HEART FAILURE - DIV M 5076-58 / [id number] / Kelli Xt Mri Pacemaker Medtronic-08/12 Implanted:08/12 by Edwar Harry MD (Quantity not on file) Chest [employer] [id number] / [id number] / Description:MRI Conditional under following conditions: [...] to C7, Supine or Prone only Insurance [facility] [place] [id number] [place] Care Teams Oven Technician Relationship Specialty Start Date End Date Jose Duncan MD [address] [place] [address] PCP - General 07/02/24
--- OUTSIDE RECORDS SUMMARY | 2025-02-23 19:37 | XMS_ITS | Continuity of Care Document ---
Author Organization [facility] Address [address] [place] [address] Phone Care Team Providers Care Hothouse Worker Name Role Phone [facility] Unavailable Unavailable Procedures Procedure Date WHO, Wrist Extension Control Cock-up, No nmolded, P Slings Advance Directives Directive Yes / No Effective Date File Name No Information Encounters Encounter Description Practice Location Reason(s) For Visit Diagnoses Date Provider Providers Copied on Encounter [facility], [address], [place], [address], tel:[phone] [facility] No Information [address] [facility], [place], [address], [place]. tel:[phone] Referring Provider: Carlos Reynoso, [address] [place], [address] . tel:[phone] [facility], [address], [place], [address], tel:[phone] [facility] No Information [address] [facility], [place], [address], [place]. tel:[phone] Referring Provider: Carlos Reynoso, [address] [place], [address] . tel:[phone] Family History Family Member Type Diagnosis Age At Onset No Information Payers Payer name Insurance type Covered democrat ID Authoriza tion(s) No Information Social History [...]
--- NOTE | 2025-02-23 19:41 | ED.EXTPRO ---
HPI - Extremity Problem General Chief complaint: Extremity Problem,Nontraumatic Stated complaint: toe infection Time Seen by Provider: 02/23/25 19:18 History of Present Illness HPI Narrative: 69-year-old male with a past medical history including prediabetes, hyperlipidemia, coronary disease, GERD. Patient has a history of left lower extremity injury with reconstruction after traumatic injury 40 years ago. Patient is ambulatory with a cane and not able to move or feel his left lower extremity. He was trimming his toenails several days ago and noticed that his left 2nd toe started get infected and he has been trying some peroxide soaks and topical Neosporin. Has not seen a doctor about this. Has no history of osteomyelitis or foot infections before. No history of diabetic ulcers or arterial ulcers. Related Data Home Medications Medication Instructions Recorded Confirmed Last Taken Type flecainide 50 mg tablet 50 mg PO Q12H 05/30/21 02/16/25 05/17/23 18:00 History hydrocodone 10 mg-acetaminophen 1 tablet PO Q6H PRN Pain 05/30/21 02/16/25 05/17/23 14:00 History 325 mg tablet meclizine 25 mg tablet 25 mg PO TID PRN Vertigo 05/30/21 02/16/25 05/12/23 08:00 History naloxone 4 mg/actuation nasal 4 mg intranasal Q2M PRN OVERDOSE 05/30/21 02/16/25 05/18/23 08:00 History spray (Narcan) potassium chloride 20 mEq 20 meq PO DAILY 05/30/21 02/16/25 05/17/23 09:00 History tablet,extended release(part/cryst) aspirin 81 mg chewable tablet 81 mg PO DAILY 05/08/23 02/16/25 05/17/23 09:00 History ergocalciferol (vitamin D2) 1,250 50,000 unit PO WEEKLY 05/08/23 02/16/25 05/12/23 09:00 History mcg (50,000 unit) capsule Allergies Allergy/AdvReac Type Severity Reaction Status Date / Time No Known Allergies Allergy Verified 02/23/25 18:15 Review of Systems Review of Systems: As reviewed above in HPI [facility] Past Medical History Medical History Loss of consciousness for less than 30 minutes Foot drop, left Myalgia Inflammatory arthritis Decubitus ulcer of dorsum of foot Hx of malignant neoplasm of tonsil Presence of left atrial appendage closure device Afib Fecal impaction External hemorrhoid Dysphagia Hx of colonic polyps Therapeutic opioid-induced constipation (OIC) Prediabetes Anxiety Nocturnal hypoxemia Cervicalgia Tobacco dependence due to cigarettes HLD (hyperlipidemia) DVT (deep venous thrombosis) Pacemaker Migraine Erectile disorder due to medical condition in male CAD (coronary artery disease) Vertigo COPD (chronic obstructive pulmonary disease) Social History Social History Smoking packs per day: 0.25 Smoking cigarettes per day: 5.0 Years smoked: 45 Smoking pack-years: 11.25 Smoking status: Current every day smoker Tobacco type: cigarettes Second hand tobacco smoke exposure: Yes Alcohol intake: never Substance use: never Substance use type: does not use Current Housing: Decline to Answer Concerned About Future Housing: Decline to Answer Difficulty Paying Gas/Electric Bills: Decline to Answer Difficulty Paying for Meds: Decline to Answer Currently Unemployed: Decline to Answer Education: Decline to Answer Difficulty w/ Childcare or Family Care: Decline to Answer Living arrangements: with family Occupation/Education: other Gender identity (if verbalized by the patient): Male Spiritual care concerns: No Exam Narrative: GENERAL: [Well-appearing, well-nourished, and in no acute distress.] HEAD: [Normocephalic, atraumatic.] EYES: [PERRLA and EOMI.] ENT: Nares clear, no rhinorrhea or epistaxis. Mucous membranes moist. NECK: Supple. CHEST: [Clear to auscultation. No respiratory distress.] HEART: [Regular rate and rhythm]. No murmur heard. [Normal peripheral pulses.] ABDOMEN: [Soft, nondistended], [nontender], [No rigidity or guarding] EXTREMITIES: Who limited range of motion of the left lower extremity secondary to previous injury, left 2nd digit has a small area of ulceration without any purulent drainage, no deformity or tenderness. Some mild overlying erythema but no crepitus. No bleeding. Granulation tissue at the edge of the wound. Warm extremities with good pulses SKIN: Warm, dry, no rash. NEURO: [No focal deficits]. Alert and oriented [x3.] PSYCH: [Normal mood and affect.] Course Vital Signs Vital signs: Vital Signs Temperature 36.6 C 02/23/25 18:35 Pulse Rate 84 02/23/25 18:35 Respiratory Rate 17 02/23/25 18:35 Blood Pressure 150/90 H 02/23/25 18:35 Pulse Oximetry 98 02/23/25 18:35 Oxygen Delivery Room Air 02/23/25 18:35 Temperature 36.6 C 02/23/25 18:35 Pulse Rate 60 02/23/25 20:08 Respiratory Rate 18 02/23/25 20:08 Blood Pressure 127/86 02/23/25 20:08 Pulse Oximetry 99 02/23/25 20:08 Oxygen Delivery Room Air 02/23/25 18:35 MDM - Extremity (Nontraumatic) MDM Narrative Medical decision making narrative: 69-year-old male with history of prediabetes, hyperlipidemia, hypertension, coronary disease, COPD. Patient presents the emergency depart with a left 2nd toe infection. He states he was trimming his toenails several days ago knows that his left 2nd toe get infected. He has history of fungal toe infections and was trimming his nails and feel like he got to close and may have cut himself. His a history of left lower extremity injury requiring surgical reconstruction with resultant chronic numbness and inability to move the leg. This is not new and there has been no other new injuries. On examination he does have what seems to be a 2nd toe infection of the distal portion that does not quite appear to be any kind of arterial or diabetic ulceration. There is good granulation tissue, no bleeding, no purulent drainage. Some overlying redness but no crepitus or tenderness to palpation. He is afebrile with normal vital signs otherwise. X-rays were obtained to rule out any kind of deep tissue or bone infection such as osteomyelitis and he was given mupirocin topically and doxycycline p.o. to cover for MRSA. Patient will be discharged home upon negative x-rays. X-rays negative for any acute osseous abnormality. Patient safely discharged home at this time with prescriptions for antibiotics. Patient given return precautions and podiatry follow-up instructions. Discharge Plan Discharge Clinical Impression: Infection of toe Patient Disposition: Home Condition: Stable Instructions: Antibiotic Form Additional Instructions: Your x-rays are reassuring, no deep space or bone infection, we will treat her toe infection with antibiotics including a topical antibiotic and oral antibiotic. Please take these as directed and follow-up with the provided pari mutuel ticket seller and your primary care provider. Return with any worsening or emergent concerns. Patient Language: Greek Prescriptions: New mupirocin [Centany] 2 % ointment 1 applic topical TID Qty: 22 0RF doxycycline hyclate 100 mg capsule 100 mg PO BID 7 Days Qty: 14 0RF No Action potassium chloride 20 mEq tablet,ER particles/crystals 20 meq PO DAILY meclizine 25 mg tablet 25 mg PO TID PRN (Reason: Vertigo) flecainide 50 mg tablet 50 mg PO Q12H Narcan 4 mg/actuation spray,non-aerosol 4 mg intranasal Q2M PRN (Reason: OVERDOSE) Rx Instructions: spray 1 dose into ONE nostril; alternate nostrils w each dose until help arrives hydrocodone-acetaminophen 10-325 mg tablet 1 tablet PO Q6H PRN (Reason: Pain) cholecalciferol (vitamin D3) 1,250 mcg (50,000 unit) tablet 1,250 mcg PO WEEKLY Qty: 14 1RF pantoprazole 40 mg tablet,delayed release (DR/EC) 40 mg PO BID Qty: 120 0RF albuterol sulfate 2.5 mg /3 mL (0.083 %) solution for nebulization 2.5 mg inhalation Q6H PRN (Reason: shortness of breath or wheezing) Qty: 180 3RF lactulose 20 gram/30 mL solution 20 g PO BID 30 Days Qty: 1800 3RF Patient Comments: WAITING FOR INSURANCE APPROVAL Movantik 12.5 mg tablet 12.5 mg PO QAM Qty: 30 3RF Patient Comments: WAITING FOR INSURANCE APPROVAL Rx Instructions: must be taken on empty stomach; no food 1 hr after or 2-3 hrs before dose albuterol sulfate 90 mcg/actuation HFA aerosol inhaler 1 - 2 puff inhalation Q4-6H PRN (Reason: shortness of breath or wheezing) Qty: 8.5 2RF tiotropium bromide [Spiriva with HandiHaler] 18 mcg capsule, w/inhalation device 1 cap inhalation DAILY 30 Days Qty: 30 5RF Rx Instructions: puncture 1 cap using device; one cap = 2 inhalations aspirin 81 mg tablet,chewable 81 mg PO DAILY ergocalciferol (vitamin D2) 1,250 mcg (50,000 unit) capsule 50,000 unit PO WEEKLY lidocaine 5 % adhesive patch,medicated 1 patch topical DAILY Qty: 15 0RF Rx Instructions: leave on most painful area for up to 12 hrs hydrocortisone 1 % cream with perineal applicator 1 applic RECTAL BID PRN (Reason: hemorrhoids) Qty: 28.4 0RF loratadine [Allergy Relief (loratadine)] 10 mg tablet 10 mg PO DAILY 30 Days Qty: 30 3RF meloxicam 7.5 mg tablet See Rx Instructions .ROUTE .COMPLEX Qty: 30 5RF Dose Instruction: 7.5 MG ORALLY DAILY Rx Instructions: 7.5 MG ORALLY DAILY triamcinolone acetonide 0.1 % cream 1 applic topical BID PRN (Reason: rash lower legs) Qty: 80 0RF fluticasone propionate 50 mcg/actuation spray,suspension See Rx Instructions .ROUTE .COMPLEX Qty: 16 11RF Dose Instruction: USE 1 SPRAY INTO EACH NOSTRIL TWICE A DAY Rx Instructions: USE 1 SPRAY INTO EACH NOSTRIL TWICE A DAY losartan 25 mg tablet See Rx Instructions .ROUTE .COMPLEX Qty: 180 0RF Dose Instruction: TAKE 1 TABLET BY MOUTH TWICE DAILY Rx Instructions: TAKE 1 TABLET BY MOUTH TWICE DAILY atorvastatin 10 mg tablet 10 mg PO DAILY Qty: 90 1RF fluvastatin 20 mg capsule 20 mg PO DAILY Qty: 90 1RF folic acid 1 mg tablet See Rx Instructions .ROUTE .COMPLEX Qty: 30 12RF Dose Instruction: TAKE 1 TABLET BY MOUTH EVERY DAY Rx Instructions: TAKE 1 TABLET BY MOUTH EVERY DAY metoprolol tartrate 25 mg tablet 25 mg PO BID Qty: 270 1RF Rx Instructions: Take 2 tablets qam and take 1 tablet po qpm azelastine 137 mcg (0.1 %) spray,non-aerosol See Rx Instructions .ROUTE .COMPLEX Qty: 30 5RF Dose Instruction: INSTILL 1 SPRAY IN EACH NOSTRIL EVERY 12 HOURS Rx Instructions: INSTILL 1 SPRAY IN EACH NOSTRIL EVERY 12 HOURS duloxetine 60 mg capsule,delayed release(DR/EC) See Rx Instructions .ROUTE .COMPLEX Qty: 60 2RF Dose Instruction: TAKE 1 CAPSULE BY MOUTH TWICE DAILY Rx Instructions: TAKE 1 CAPSULE BY MOUTH TWICE DAILY budesonide-formoterol [Symbicort] 160-4.5 mcg/actuation HFA aerosol inhaler See Rx Instructions .ROUTE .COMPLEX Qty: 10.2 3RF Dose Instruction: INHALE 2 SPRAYS TWICE DAILY RINSE MOUTH AFTER USE Rx Instructions: INHALE 2 SPRAYS TWICE DAILY RINSE MOUTH AFTER USE clonazepam 1 mg tablet 1 mg PO TID Qty: 90 0RF Follow-up/Referrals: Randy Hameed Jr., DPM [Physician] - 1 Week (2nd toe infection, left side) Jose Duncan MD [Primary Care Provider] - Time of Disposition: 20:23
[2025-02-23 20:08] VITALS: BP 127/86; PULSE 60; RESP 18; O2SAT 99
[2025-02-23] MEDS: MUPIROCIN 2% OINT 22 GM TUBE 1 APPLIC TOPICAL (20:08)
[2025-02-23] MEDS: DOXYCYCLINE HYCLATE 100 MG TABLET PO (20:08)
== END 2025-02-23 20:40 | disposition home or self-care (01) ==
PROVIDERS: Emergency Provider Student in an Organized Health Care Education/Training Program; PCP Family Medicine
DX: L08.9 Local infection of the skin and subcutaneous tissue, unspecified (principal); E78.5 Hyperlipidemia, unspecified; I25.10 Atherosclerotic heart disease of native coronary artery without angina pectoris; J44.9 Chronic obstructive pulmonary disease, unspecified; I48.91 Unspecified atrial fibrillation; F17.210 Nicotine dependence, cigarettes, uncomplicated; Z86.718 Personal history of other venous thrombosis and embolism
CPT/HCPCS: 73630; 99283; A9270

== ENCOUNTER 2025-03-17 14:23 | Emergency (ER) | payer OTHER, SELFPAY ==
--- NOTE | ~2025-03-17 | CT_ITS ---
EXAMINATION: CT brain wo con DATE: 03/17/2025 15:16 INDICATION: Anticoagulated patient post fall with head injury TECHNIQUE: Computed tomography (CT) of the head was performed without intravenous contrast. Sagittal and coronal reconstructions were performed. The mA was adjusted according to patient size. Iterative reconstruction technique was employed. The dose-length product was 605.33 mGy-cm. COMPARISON: head CT dated 08/31/2023 FINDINGS: Unchanged linear soft tissue density band of likely chronic scarring along the right parietal scalp. No fracture. No acute intracranial hemorrhage, acute infarction or abnormal extra axial fluid collect ion. Symmetric prominence of the sulci consistent with mild age-appropriate diffuse cerebral volume l oss. Ventricles are normal and symmetric. No mass/mass effect. Changes of bilateral intraocular lens replacement. The orbits, paranasal sinuses and mastoid air cells are normal. IMPRESSION: 1. Normal aging brain. No fracture or acute intracranial process. Reviewed, dictated and finalized at location A.
--- NOTE | ~2025-03-17 | XR_ITS ---
XR chest 2V 03/17/2025 15:28 Indication: Chest pain Procedure: 2 view chest Comparison: 08/31/2023 Findings: Heart size normal. Pacemaker leads are stable. Atrial closure device is present. Left basil ar atelectasis. No acute focal pneumonia, edema or effusion. No pneumothorax. Impression: 1: No acute cardiopulmonary disease. Reviewed, dictated and finalized at location A. Impression: 1: No acute cardiopulmonary disease.
[2025-03-17 14:24] VITALS: BP 161/101; PULSE 74; RESP 16; TEMP 37.1; O2SAT 97
--- OUTSIDE RECORDS SUMMARY | 2025-03-17 14:26 | XMS_ITS | Clinical Summary ---
Author Organization [facility] Address [address] [place] [address] Care Team Providers Care Geotechnical Operating Engineer Name Role Phone Jose Duncan MD Primary Care Provider [phone] Source Comments [facility],non-owned Affiliates and Associated Physician Practices is amultiple site organization consisting of ambulatory clinics and hospital sitesin [place], [place], [place] and [place]. This disclosure is being madepursuant to the Care Everywhere program and may not contain all information available regarding this patient. Last updated 18.[facility] Allergies No known active allergies Medications * [...] Active vitamin D, ergocalciferol, (Drisdol) 1.25 MG (66974 UT) capsuleIndicati ons:Low vitamin D level,Low folate [...] Sinus Node Dysfunction. DOI 08/24/2020-Dr Bal Hernandez. [facility] Remote transfer request submitted. 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 Chronic respiratory failure 11/01/2020 [...] pleural effusion Coronary artery disease invo lving [place] coronary artery of [place] heart without angina pectoris 07/31/2020 NSVT (nonsustained ventricular tachycardia) 07/13 Overview (04/11/2022): Last Assessment & Plan: - Cont home medications Added automatically from request for surgery [id number] Last Assessment & Plan: Has history of and has PPM - Cont BB as BP tolerates - flecainide continued Chronic fatigue 07/31/2020 SOB (shortness of breath) 07/31/2020 Bradycardia 07/31/2020 Benign prostatic hyperplasia with urinary obstru ction 12/30/2018 Overview (04/11/2022): Added automatically from request for surgery [id number] Headache syndrome, complicated 09/20/2017 Dyslipidemia 09/19/2017 Overview [...] Neuralgia 12/16/2012 Gout 05/21/2012 [facility] with [facility] rheumatoid factor 01/30/2010 Dysthymic [...] on file Legal Sex Male 11:59 AM NETTING WEAVER Gender Identity Not on file Sexual Orientation Not on file 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 Date Job End Date 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 Not on file [...] 11:28 AM CDT Height 200.7 cm (6' 7) 12/19/2022 10:50 AM NETTING WEAVER Body Mass Index 27.83 12/19/2022 10:50 AM NETTING WEAVER Plan of Treatment Health Maintenance Due Date [...] - Risk 60-74 years 1-dose series) 2017 AAA SCREENING 2022 COVID-19 VACCINE ( season) 2024 05/17/2022, 09/06/2021, 01/04/2021, Additional history exists DEPRESSION SCREENING 10/12/2024 INFLUENZA VACCINE (Season Ended) 2025 06/12/2020 SCREENING FOR DIABETES 12/13/2025 , 12/13/2022, 12/04/2022, Additional history exists DTAP/TDAP/TD VACCINES (2 - Td or Tdap) [...] this topic Medical Devices Implanted Type Area Color Maker Formulator Device Identifier Shelf Expiration Date Model / Serial / Lot Medtronic Pacemaker; Mri Conditional 1.5t Or 3t [id number] / [id number] / Insurance [facility] MEDICARE MANAGED CARE PLAN GENERIC MEDICARE ADV [facility] Care Teams Geotechnical Operating Engineer Relationship Specialty Start Date End Date Jose Duncan MD [address] [place] [id number] PCP - General 01/27/22
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
--- OUTSIDE RECORDS SUMMARY | 2025-03-17 14:26 | XMS_ITS | Continuity of Care Document ---
Author Organization [facility] Address [address] [place] [address] Phone Care Team Providers Care Assistant To The President Name Role Phone [facility] Unavailable Unavailable Procedures Procedure Date WHO, Wrist Extension Control Cock-up, No nmolded, P Slings Advance Directives Directive Yes / No Effective Date File Name No Information Encounters Encounter Description Practice Location Reason(s) For Visit Diagnoses Date Provider Providers Copied on Encounter [facility], [address], [place], [address], tel:[phone] [place] No Information 9 [facility]. [address], [place], [address], [place]. tel:[phone] Referring Provider: Carlos Reynoso, [address] [place], [address] . tel:[phone] [facility], [address], [place], [address], tel:[phone] [place] No Information 9 [facility]. [address], [place], [address], [place]. tel:[phone] Referring Provider: Carlos Reynoso, [address] [place], [address] . tel:[phone] Family History Family Member Type Diagnosis Age At Onset No Information Payers Payer name Insurance type Covered alliance [...]
--- OUTSIDE RECORDS SUMMARY | 2025-03-17 14:26 | XMS_ITS | Continuity of Care Document ---
Author Organization [facility] [place] Address [address] [place] [address] Phone Care Team Providers Care Marketing Campaign Analyst Name Role Phone Nathanael Hernandez DO Unavailable [...] CT Cervical Spine WO Contrast 4 Office/outpatient visit,[facility] 2013 Office/outpatient visit,[facility], [facility] 2008 Office/outpatient visit,[facility], [facility] 2008 X-ray exam of wrist, complete 9 Removal of wrist bones Carpal tunnel surgery Office/outpatient visit,[facility], [facility] 2008 Office/outpatient visit,[facility], [facility] 2008 X-ray exam of wrist, complete 9 Advance Directives Directive Yes / No Effective Date File Name No Information Encounters Encounter Description Practice Location Reason(s) For Visit Diagnoses Date Provider Providers Copied on Encounter [facility], [address] [place] [address], [id number], tel:[phone] [facility] No Information 5 David Huffman. [address] [place] [address], [id number] , . tel:[phone] [facility], [address] [place] [address], [id number], tel:[phone] [facility] No Information 0 4 David Huffman. [address] [place] [address], [id number] , . tel:[phone] Referring Provider: Nathanael San, [address] [place], [address] . tel:[phone] Office/outpat ient visit,new, low [facility], [address] [place] [address], [id number], tel:[phone] [facility] cervical spine pain (chief complaint)c ervical spine (chief complaint) Cervicalgia- Pain In Neck 0 4 David Huffman. [address] [place] [address], [id number] , [place]. tel:[phone] Office/outpat ient visit,est, mod [facility], [address] [place] [address], [id number], tel:[phone] [facility] No Information 9 Rayna Tavarez. [address] [place] [address], [id number], [place]. [phone] Referring Provider: Carlos Reynoso, [place], [address]. tel:[phone] Office/outpat ient visit,[facility], [facility], [address] [place] [address], [id number], tel:[phone] [facility] No Information 1 9 Shakir Gonzalez. [address] [place] [address], [id number] , . [phone] Referring Provider: Carlos Reynoso, [address] [place], [address]. tel:[phone] [facility], [address] [place] [address], [id number], tel:[phone] [facility] No Information 9 Erthall Jhony. [address] [place] [address], [id number] , . tel:[phone] Referring Provider: Carlos Reynoso, [address] [place], [address]. tel:[phone] [facility], [address] [place] [id number], [phone] [facility] No Information 9 Shakir Gonzalez. [address] [place] [address], [id number] , . tel:[phone] Office/outpat ient visit,[facility], [facility], [address] [place] [address], [id number], [phone] [facility] No Information 9 Shakir Gonzalez. [address] [place] [address], [id number] , . tel: [phone] Referring Provider: Carlos Reynoso, [address] [place] [address], [id number]. tel:[phone] Office/outpat ient visit,[facility], [facility], [address] [place] [address], [id number], [phone] [facility] No Information 9 Erthall Jhony. [address] [place] [address], [id number] , . [phone] Referring Provider: Carlos Reynoso, [address] [place] [address], [id number] . tel:[phone] Family History Family Member Type Diagnosis Age At Onset Problem (finding) Family history of coronary arteriosclerosis Payers Payer name Insurance type Covered democrat [...]
--- OUTSIDE RECORDS SUMMARY | 2025-03-17 14:26 | XMS_ITS | Referral Summary ---
Author Organization [facility] Address [address] [place] [address] Care Team Providers Care Record Maker Name Role Phone Jose [place] MD Primary Care Provider [phone] Encounters Date Type Department Care Team Description 01/24/2025 Telephone [facility] Cardiology [address] [place] [address] [place] [phone] Sergey Chang MD 01/24/2025 1:00 PM CDT Ancillary Procedure [facility] Cardiology [address] [place] [address] [place] [phone] Cardiac pacemaker in situ [Z95.0] (Primary Dx); SSS (sick sinus syndrome) (HCC); Paroxysmal atrial fibrillation (HCC) 01/24/2025 1:00 PM CDT Office Visit [facility] Cardiology [address] [facility] [address] [place] [address] Veronica Zapata NP Dyslipidemia (Primary Dx); Palpitations 01/23/2025 Telephone Cardiology Teena Dillon DO 01/05/2025 Orders Only [facility] Vascular and Vein Surgery [address] [facility] [address] [place] [address] Kevin Car MD 01/04/2025 Orders Only [facility] Vascular at [address] [place] [address] Kevin Car MD PAD (peripheral artery disease) (Primary Dx) 01/04/2025 9:00 AM CDT Office Visit [facility] Vascular at [address] [place] [address] Kevin Car MD PAD (peripheral artery disease) (Primary Dx); Dyslipidemia; Essential (primary) hypertension 12/20/2024 1:00 PM CDT Ancillary Procedure [facility] Vascular and Vein Surgery at [address] [place] [address] PAD (peripheral artery disease) 12/20/2024 1:00 PM CDT Ancillary Procedure [facility] Vascular and Vein Surgery at [address] [place] [address] PAD (peripheral artery disease) 12/20/2024 2:00 PM CDT Ancillary Procedure [facility] Vascular and Vein Surgery at [address] [place] [phone] Aftercare following surgery of the circulatory system 12/15/2024 Orders Only [facility] Vascular and Vein Surgery [address] [facility] [address] [place] [phone] Kevin Car MD Aftercare following surgery of the circulatory system (Primary Dx) from Last 3 Months Allergies No known active allergies Medications budesonide-form [...] needed 0 Active miscellaneous medical supply misc 2L/BRIDGES SUPERVISOR at night Activ e meclizine (ANTIVERT) [...] months. Assessment & Plan (11/28/2024 10:39 AM SENIOR PRODUCT INTEGRITY ENGINEER): Continue ASA Plavix and statin therapy. Noninvasive [...] 11/02/2020 Assessment & Plan (11/02/2020 8:08 AM SENIOR PRODUCT INTEGRITY ENGINEER): Last noted OSH creatine was 1.1 in 08/2020. - elevated to 2.27 on admission - received hydration and this AM has decreased to 1.53 - hold LETTY, oral potassium (home medication) - avoid hypotension and nephrotoxic medications. - Labs in AM Atelectasis 11/02/2020 Assessment & Plan (11/02/2020 8:09 AM SENIOR PRODUCT INTEGRITY ENGINEER): - noted on post op CXR - very congested sounding cough - pul toileting today CVA (cerebral vascular accident) ([facility]) 11/01 Overview (12/04/2022): Last Assessment & Plan: [...] fall Assessment & Plan (11/01/2020 5:15 PM SENIOR PRODUCT INTEGRITY ENGINEER): high-grade stenosis noted at the left posterior [...] noted Assessment & Plan (11/01/2020 5:19 PM SENIOR PRODUCT INTEGRITY ENGINEER): Hx COPD, home O2 use at night - Cont inhalers Chronic pain 11/01/2020 Overview (12/04/2022): Last Assessment & Plan: - LINSEED OIL REFINER/epidural - cont neurontin Last Assessment & Plan: - cont medications - monitor Last Assessment & Plan: - LINSEED OIL REFINER/epidural - cont neurontin Assessment & Plan (03/05/2021 5:19 PM CDT): - cont medications - monitor Assessment & Plan (02/06/2021 7:55 AM CDT): - cont medications - monitor Assessment & Plan (11/01/2020 5:22 PM SENIOR PRODUCT INTEGRITY ENGINEER): - LINSEED OIL REFINER/epidural - cont neurontin 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 Overview [...] effusion Assessment & Plan (11/01/2020 5:05 PM SENIOR PRODUCT INTEGRITY ENGINEER): S/P plication of the diaphragm - Pain control-LINSEED OIL REFINER/epidural - IVF - Jimenez - ADAT VT (ventricular tachycardia) 07/31/2020 Overview (12/04/2022): Last Assessment & Plan: Has history of and has PPM - Cont BB as BP tolerates - flecainide continued Last Assessment & Plan: - Cont home medications Added automatically from request for surgery [id number] Last Assessment & Plan: Has history of and has PPM - Cont BB as BP tolerates - flecainide continued Added automatically from request for surgery [id number] Assessment & Plan (03/05/2021 5:25 PM CDT): - Cont home medications Assessment & Plan (02/04/2021 11:44 PM CDT): Continue home flecainide Assessment & Plan (11/01/2020 5:16 PM SENIOR PRODUCT INTEGRITY ENGINEER): Has history of and has PPM - Cont BB as BP tolerates - flecainide continued Bradycardia 07/31/2020 Other fatigue 07/31/2020 Coronary artery disease invo lving [place] coronary artery of [place] heart without angina pectoris 07/31/2020 SOB (shortness of breath) on exertion 07/31/2020 Headache syndrome, complicated 09/20/2017 Dyslipidemia 09/19/2017 Overview (12/04/2022): Last Assessment & Plan: Lipid panel and statin started Last Assessment & Plan: Lipid panel and statin started Assessment & Plan (01/06/2025 9:59 AM CDT): Stable continue Lipitor Assessment & Plan (11/28/2024 10:40 AM SENIOR PRODUCT INTEGRITY ENGINEER): Stable continue Lipitor Dysuria 05/19/2017 Encounter for [...] (12/04/2022): Added automatically from request for surgery [id number] Added automatically from request for surgery [id number] Last Assessment & Plan: No obstructive symptoms now.. 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 with negative rheumatoid factor 01/30/2010 Dysthymic disorder 01/25/2010 Essential (primary) hypertension 04/06/2006 Overview (12/04/2022): Last Assessment & Plan: Monitor bp treat if sbp>220 Awaiting neurology recommendations Last Assessment & Plan: Monitor bp treat if sbp>220 Awaiting neurology recommendations Assessment & Plan (01/06/2025 9:59 AM CDT): Stable metoprolol Assessment & Plan (11/28/2024 10:40 AM SENIOR PRODUCT INTEGRITY ENGINEER): Stable continue losartan 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 Cont to smoke [...] on file Legal Sex Male 3:54 AM SENIOR PRODUCT INTEGRITY ENGINEER Gender Identity Not on file Sexual Orientation Not on file Last Filed Vital Signs Vital Sign Reading Time Taken Comments Blood Pressure 118/78 01/24/2025 1:09 PM CDT Pulse 71 01/24/2025 1:09 PM CDT Temperature 36.6 C (97.8 F) 10/24/2024 7:22 AM SENIOR PRODUCT INTEGRITY ENGINEER Respiratory Rate 16 10/24/2024 7:22 AM SENIOR PRODUCT INTEGRITY ENGINEER Oxygen Saturation 96% 01/24/2025 1:09 PM CDT Inhaled Oxygen Concentration - - Weight 109.5 kg (241 lb 8 oz) 01/24/2025 1:09 PM CDT Height 200.7 cm (6' 7) 01/24/2025 1:09 PM CDT Body Mass Index 27.21 01/24/2025 1:09 PM CDT Plan of Treatment Not on file Medical Devices Implanted Type Area Manager Child Device Identifier Shelf Expiration Date Model / Serial / Lot [employer] Vascade Mvp 6-12fr Venous Closure [id number] - [id number] Implanted:Qty: 1 on 12/12/2022 by Sergey Chang MD at [facility] Collagen Right: Femoral Vein Standardized [employer] 08/26/2024 [id number] / / [id number] Harry Vascular Percutaneous Transcatheter Amplatzer Amulet 25mm [id number] - [id number] Implanted:Qty: 1 on 12/12/2022 by Sergey Chang MD at [facility] Left Atrial Appendage Occluder Left: Atrial Appendage Harry [employer] 06/11/2027 [id number] / / [id number] Pacemaker Chest Standardized [employer] Vascade Mvp 6-12fr Venous Closure [id number] - [id number] Implanted:Qty: 1 on 12/12/2022 by Sergey Chang MD at [facility] [id number] / / [id number] Alem Epic Od9 Mm L40 Mm L110 Cm Otw Radiopaque Self Expand Iliac Artery L75 Cm Stent Vascular Nitinol Accepts .035 In Guidewire 6 Fr Introducer Sheath [id number] - [id number] Implanted:Qty: 1 on 10/24/2024 by Sergey Chang MD at [facility] [employer] Scientific Alem 07/23/2025 [id number] / / [id number] Closure Inc Mynx Control 6-7fr 2 Mode Balloon Catheter Sealant Lock Syringe [id number] - [id number] Implanted:Qty: 1 on 10/24/2024 by Sergey Chang MD at [facility] Access [employer]osure Inc 06/16/2026 [id number] / / [id number] Procedures Procedure Name Priority Date/Time Associated Diagnosis [...] Read Routine (OP Routine) 09/26/2024 3:21 PM SENIOR PRODUCT INTEGRITY ENGINEER Claudication PAD (peripheral artery disease) from Last [...] and sensing thresholds. Presenting rhythm: AP-VS. AP-95%, SALES COMMUNICATIONS MANAGER-<0.1%. 1 AT/AF episode noted, 30 minutes on 01/14/2025. IEGM demonstrates Afib with v-rate up to 153 bpm. AF [place] <0.1%. 5 Fast A&V episodes noted, iegm's [...] 3:48 PM CDT Vascular & Vein Surgery [facility] [place] [address] Abdominal Aortic Duplex Ultrasound Report Patient Name: ANDREI BROWN M : 1955 Study Date: 12/20/2024 12:56:48 PM Gender: M Cripple Cutter: CRISTOPHER Location: [facility] Ref Provider: KEVIN CAR [...] MD - 12/20/2024 Vascular & Vein Surgery [address] [place] [address]. [place] [address] Abdominal Aortic Duplex Ultrasound Report Patient Name: ANDREI BROWN M : 1955 Study Date: 12/20/2024 12:56:48 PM Gender: M Cripple Cutter: Location: [facility] Ref Provider: KEVIN CAR Quality: [...] 2:44:12 PM CDT us Kevin Car MD IM US PROCEDURES Final Result * US Arterial Duplex Lower Extremity Left Limited (12/20/2024 2:25 PM CDT) Anatomical Region Laterality Modality Vascular Left Ultrasound 12/20/2024 1:35 PM CDT Narrative 12/20/2024 3:48 PM CDT Vascular & Vein Surgery [facility] [place] [address] Lower Extremity Arterial Duplex Report Patient Name: ANDREI BROWN M : 1955 (69y 2m) Gender: M Study Date: 12/20/2024 01:35:20 PM Ht(Inch): Wt(Lb): BSA: Cripple Cutter: Location: [facility] Order Provider: KEVIN CAR Quality: [...] Prior CTA 09/26/24. MEASUREMENTS: Left Value Lt CASHIER PARKING LOT Dst PSV 66.00 cm/sec Lt Profunda Prx [...] MD - 12/20/2024 Vascular & Vein Surgery [address] [place] [address] Lower Extremity Arterial Duplex Report Patient Name: ANDREI BROWN M : 1955 (69y 2m) Gender: M Study Date: 12/20/2024 01:35:20 PM Ht(Inch): Wt(Lb): BSA: Cripple Cutter: Location: [facility] Order Provider: KEVIN CAR Quality: [...] Prior CTA 09/26/24. MEASUREMENTS: Left Value Lt CASHIER PARKING LOT Dst PSV 66.00 cm/sec Lt Profunda Prx [...] 3:48 PM CDT Vascular & Vein Surgery [address] [place] [address] Lower Extremity Arterial Doppler Report Patient Name: ANDREI BROWN M : 1955 Study Date: 12/20/2024 12:55:00 PM Gender: M Cripple Cutter: Nan Baez RVT Location: [facility] Ref Provider: [...] mmHg Lt Brachial Pressure 136 mmHg Rt DISC PAD KNOCKOUT WORKER Pressure 167 mmHg Lt DISC PAD KNOCKOUT WORKER Pressure 89 mmHg Rt DPA Pressure 167 mmHg Lt DPA Pressure 144 mmHg Rt PT RYAN Resting 1.2 Lt PT RYNA Resting 0.64 Rt DP RYAN Resting 1.2 [...] MD - 12/20/2024 Vascular & Vein Surgery [address] [place] [address] Lower Extremity Arterial Doppler Report Patient Name: ANDREI BROWN M : 1955 Study Date: 12/20/2024 12:55:00 PM Gender: M Cripple Cutter: Nan Baez RVT Location: [facility] Ref Provider: KEVIN CAR Quality: Adequate [...] mmHg Lt Brachial Pressure 136 mmHg Rt DISC PAD KNOCKOUT WORKER Pressure 167 mmHg Lt DISC PAD KNOCKOUT WORKER Pressure 89 mmHg Rt DPA Pressure 167 [...] Kevin Car MD 12/20/2024 2:44:41 PM CDT us Kevin Car MD IMG US PROCEDURES Final Result * CTA Abdominal Aorta And Bilateral Iliofemoral Runoff (09/26/2024 3:21 PM SENIOR PRODUCT INTEGRITY ENGINEER) Anatomical Region Laterality Modality Body Bilateral Computed Tomogra phy 09/26/2024 4:04 PM SENIOR PRODUCT INTEGRITY ENGINEER Impressions 09/26/2024 4:04 PM SENIOR PRODUCT INTEGRITY ENGINEER 1. ATHEROSCLEROTIC CHANGES IN THE ABDOMINAL AORTA [...] Jose Traylor M.D. Narrative 09/26/2024 4:04 PM SENIOR PRODUCT INTEGRITY ENGINEER EXAMINATION: CTA ABDOMINAL AORTA AND BILATERAL ILIOFEMORAL [...] by: Jose Traylor M.D. Sergey Chang MD IM CT PROCEDURES Final Result from Last 3 Months or Most Recently Relevant to Health Maintenance Insurance [facility] Advance Directives For more information, please contact: [phone] * Full Code (Latest Code Status on File) Date Activated Date Inactivated Comments 03/05/2021 4:15 PM 03/06/2021 4:31 PM * Full Code Date Activated Date Inactivated Comments 02/04/2021 9:07 PM 02/08/2021 7:11 PM * Full Code Date Activated Date Inactivated Comments 11/01/2020 4:59 PM 11/04/2020 5:52 PM Care Teams Record Maker Relationship Specialty Start Date End Date Jose [place] MD PCP - General Family Practice 06/05/21
--- NOTE | 2025-03-17 14:35 | ECG_ITS ---
Test Date: 2025-03-17 14:41:31 Measurements Intervals [place] Rate: 64 P: -85 MO: 229 QRS: 62 QRSD: 100 T: 25 QT: 422 QTc: 437 Interpretive Statements ELECTRONIC ATRIAL PACEMAKER NONSPECIFIC T-WAVE ABNORMALITY- ANTEROLATERAL LEADS BASELINE ARTIFACT- I, II, III, AVR, AVL, AVF, V3 BORDERLINE ECG No previous ECG available for comparison Electronically Signed On 03-17-2025 15:30:28 CDT by Anthony Santacruz D.O.
--- NOTE | 2025-03-17 14:43 | ED_ITS ---
HPI - Fall General Chief Complaint: Fall <Vira Huggins APRN - Last Filed: 03/17/25 14:45> Stated Complaint: fall <Vira Huggins APRN - Last Filed: 03/17/25 14:45> Time Seen by Provider: 03/17/25 14:30 <Vira Huggins APRN - Last Filed: 03/17/25 14:45> Focused HPI: Patient is a 69-year-old male who presents to the ER after sustaining a fall. He reports 2 nights ago he fell and hit his head on the concrete floor. Patient endorses many frequent falls in the last 2 years and reports I see a doctor for it but they can not figure what's wrong. GENERAL: Well-appearing, well-nourished, and in no acute distress. HEAD: Normocephalic, atraumatic. CHEST: Clear to auscultation. ?No respiratory distress. HEART: Regular rate and rhythm.? NEURO: ?Alert and oriented x3. Patient screened in triage and initial orders placed.? ?Additional care and disposition to be based upon?diagnostic testing and treatment. <Vira Huggins APRN - Last Filed: 03/17/25 14:45> History of Present Illness HPI Narrative: Agree with HPI. Bilateral neck pain but no midline pain. No LOC after the fall. He is on some anti-platelet medications. Has chronic weakness in left lower leg and when he falls he is not typical using his crutch. Has headache behind the right eye when he bends his head down. <Carrington Carlin MD - Last Filed: 03/17/25 17:03> Related Data Home Medications: Home Medications ?Medication ?Instructions ?Recorded ?Confirmed ?Last Taken ?Type flecainide 50 mg tablet 50 mg PO Q12H 05/30/21 02/16/25 05/17/23 18:00 History hydrocodone 10 mg-acetaminophen 1 tablet PO Q6H PRN Pain 05/30/21 02/16/25 05/17/23 14:00 History 325 mg tablet meclizine 25 mg tablet 25 mg PO TID PRN Vertigo 05/30/21 02/16/25 05/12/23 08:00 History naloxone 4 mg/actuation nasal 4 mg intranasal Q2M PRN OVERDOSE 05/30/21 02/16/25 05/18/23 08:00 History spray (Narcan) potassium chloride 20 mEq 20 meq PO DAILY 05/30/21 02/16/25 05/17/23 09:00 History tablet,extended release(part/cryst) aspirin 81 mg chewable tablet 81 mg PO DAILY 05/08/23 02/16/25 05/17/23 09:00 History ergocalciferol (vitamin D2) 1,250 50,000 unit PO WEEKLY 05/08/23 02/16/25 05/12/23 09:00 History mcg (50,000 unit) capsule <Vira Huggins APRN - Last Filed: 03/17/25 14:45> Allergies/Adverse Reactions: Allergies Allergy/AdvReac Type Severity Reaction Status Date / Time No Known Allergies Allergy Verified 03/07/25 15:42 <Vira Huggins APRN - Last Filed: 03/17/25 14:45> Review of Systems 2 Review of Systems: All systems reviewed & are unremarkable except as noted in HPI and below <Carrington Carlin MD - Last Filed: 03/17/25 17:03> Constitutional: Constitutional: Reports no additional constitutional complaints <Carrington Carlin MD - Last Filed: 03/17/25 17:03> Cardiovascular: Cardiovascular: Reports no additional cardiovascular complaints <Carrington Carlin MD - Last Filed: 03/17/25 17:03> Respiratory: Respiratory: Reports no additional respiratory complaints < Carrington Carlin MD - Last Filed: 03/17/25 17:03> Musculoskeletal: Musculoskeletal: Reports no additional musculoskeletal complaints <Carrington Carlin MD - Last Filed: 03/17/25 17:03> Neurologic: Reports system reviewed and no additional complaints, except as documented <Carrington Carlin MD - Last Filed: 03/17/25 17:03> [facility] Past Medical History Medical History: Medical History (Reviewed 03/07/25 @ 15:42 by Elver Bhat [facility]) Loss of consciousness for less than 30 minutes Foot drop, left Myalgia Inflammatory arthritis Decubitus ulcer of dorsum of foot Hx of malignant neoplasm of tonsil Presence of left atrial appendage closure device Afib Fecal impaction External hemorrhoid Dysphagia Hx of colonic polyps Therapeutic opioid-induced constipation (OIC) Prediabetes Anxiety Nocturnal hypoxemia Cervicalgia Tobacco dependence due to cigarettes HLD (hyperlipidemia) DVT (deep venous thrombosis) Pacemaker Migraine Erectile disorder due to medical condition in male CAD (coronary artery disease) Vertigo COPD (chronic obstructive pulmonary disease) <Vira Huggins APRN - Last Filed: 03/17/25 14:45> Social History Social History: Social History (Reviewed 03/07/25 @ 15:42 by Elver Bhat, [facility]) Smoking packs per day: 0.25 Smoking cigarettes per day: 5.0 Years smoked: 45 Smoking pack-years: 11.25 Smoking status: Current every day smoker Tobacco type: cigarettes Second hand tobacco smoke exposure: Yes Alcohol intake: never Substance use: never Substance use type: does not use Lack of Transportation: No Lack of Food: Never True Current Housing: Decline to Answer Concerned About Future Housing: Decline to Answer Difficulty Paying Gas/Electric Bills: Decline to Answer Difficulty Paying for Meds: Decline to Answer Currently Unemployed: Decline to Answer Education: Decline to Answer Difficulty w/ Childcare or Family Care: Decline to Answer Living arrangements: with family Occupation/Education: other Gender identity (if verbalized by the patient): Male Spiritual care concerns: No <Vira Huggins, SPEECH LANGUAGE THERAPIST - Last Filed: 03/17/25 14:45> Exam 2 Narrative: GENERAL: Well-appearing, well-nourished, and in no acute distress. HEAD: Normocephalic, scab/contusion superior to right lateral eyebrow ENT: Mucous membranes moist. NECK: Supple. No midline tenderness. Mild paraspinal discomfort with normal range of motion. CHEST: Clear to auscultation. No respiratory distress. HEART: Regular rate and rhythm. Normal peripheral pulses. EXTREMITIES: Normal range of motion. No edema. Chronic weakness left lower extremity. SKIN: Warm, dry, no rash. NEURO: Alert and oriented x3. PSYCH: Normal mood and affect. <Carrington Carlin MD - Last Filed: 03/17/25 17:03> Course Course Emergency Course: No intracranial injury. Labs unremarkable. Appropriate for discharge home. Patient given reassurance and education on diagnosis. <Carrington Carlin MD - Last Filed: 03/17/25 17:03> Vital Signs Vital signs: Vital Signs Temperature 98.8 F 03/17/25 14:24 Pulse Rate 74 03/17/25 14:24 Respiratory Rate 16 03/17/25 14:24 Blood Pressure 161/101 H 03/17/25 14:24 Pulse Oximetry 97 03/17/25 14:24 Oxygen Delivery Room Air 03/17/25 14:24 Temperature 98.8 F 03/17/25 14:24 Pulse Rate 61 03/17/25 15:56 Respiratory Rate 18 03/17/25 15:56 Blood Pressure 166/89 H 03/17/25 15:56 Pulse Oximetry 95 03/17/25 15:56 Oxygen Delivery Room Air 03/17/25 14:24 <Vira Huggins APRN - Last Filed: 03/17/25 14:45> Vital Signs Temperature 98.8 F 03/17/25 14:24 Pulse Rate 74 03/17/25 14:24 Respiratory Rate 16 03/17/25 14:24 Blood Pressure 161/101 H 03/17/25 14:24 Pulse Oximetry 97 03/17/25 14:24 Oxygen Delivery Room Air 03/17/25 14:24 Temperature 98.8 F 03/17/25 14:24 Pulse Rate 61 03/17/25 15:56 Respiratory Rate 18 03/17/25 15:56 Blood Pressure 166/89 H 03/17/25 15:56 Pulse Oximetry 95 03/17/25 15:56 Oxygen Delivery Room Air 03/17/25 14:24 <Carrington Carlin MD - Last Filed: 03/17/25 17:03> [facility] - Fall Lab Data Result diagrams: 03/17/25 15:58 03/17/25 15:58 <Vira Huggins APRN - Last Filed: 03/17/25 14:45> Labs: Lab Results 03/17/25 Range/Units 15:58 WBC 8.6 (4.5-10.0) K/mm3 RBC 4.56 L (4.6-6.20) M/mm3 Hgb 14.1 (14.0-18.0) g/dL Hct 42.7 (42.0-52.0) % MCV 93.6 (80-100) fl MCH 30.9 (26-34) pg MCHC 33.0 (32-36) g/dl RDW 14.2 (11.5-14.5) % Plt Count 259 (150-375) k/mm3 MPV 8.8 (7.4-10.4) fl Immature Gran % (Auto) 0.4 (0-0.5) % Neut % (Auto) 63.3 (45.5-73.1) % Lymph % (Auto) 25.1 (18.3-44.2) % Piatt % (Auto) 8.1 (2.6-8.5) % Eos % (Auto) 2.2 (0-4.4) % Baso % (Auto) 0.9 (0.2-1.2) % Lymph # (Auto) 2.15 (0.9-3.2) K/mm3 Piatt # (Auto) 0.7 H (0.1-0.6) K/mm3 Eos # (Auto) 0.2 (0-0.3) K/mm3 Baso # (Auto) 0.1 (0.0-0.1) K/mm3 Abs Immat Gran (auto) 0.03 (0.00-0.031) K/mm3 Absolute Neuts (auto) 5.4 (1.3-6.7) K/mm3 Absolute Nucleated RBC 0.000 (0.0-0.012) K/mm3 Nucleated RBC % 0.0 (0.0-0.2) % PT 13.5 (11.1-14.7) Seconds INR 1.0 APTT 24.9 (22.3-36.8) Seconds Sodium 139 (137-145) mmol/L Potassium 4.0 (3.4-5.0) mmol/L Chloride 105 (98-107) mmol/L Carbon Dioxide 26 (22-30) mmol/L Anion Gap 8 (4-12) mmol/L BUN 10 D (9-20) mg/dL Creatinine 0.98 (0.7-1.3) mg/dL Estim Creat Clear Calc 86 ml/min Estimated GFR > 60 (59 - ) Glucose 81 (65-110) mg/dL Calcium 9.0 (8.4-10.2) mg/dL Magnesium 2.1 (1.6-2.3) mg/dL Total Bilirubin 0.5 (0.2-1.3) mg/dL AST 27 (17-59) U/L ALT 26 (6-50) U/L Alkaline Phosphatase 95 (38-126) U/L Troponin I < 0.012 (0.000-0.034) ng/mL Total Protein 6.4 (6.3-8.2) g/dL Albumin 3.6 (3.5-5.1) g/dL <Vira Huggins, SPEECH LANGUAGE THERAPIST - Last Filed: 03/17/25 14:45> Lab Results 03/17/25 Range/Units 15:58 WBC 8.6 (4.5-10.0) K/mm3 RBC 4.56 L (4.6-6.20) M/mm3 Hgb 14.1 (14.0-18.0) g/dL Hct 42.7 (42.0-52.0) % MCV 93.6 (80-100) fl MCH 30.9 (26-34) pg MCHC 33.0 (32-36) g/dl RDW 14.2 (11.5-14.5) % Plt Count 259 (150-375) k/mm3 MPV 8.8 (7.4-10.4) fl Immature Gran % (Auto) 0.4 (0-0.5) % Neut % (Auto) 63.3 (45.5-73.1) % Lymph % (Auto) 25.1 (18.3-44.2) % Piatt % (Auto) 8.1 (2.6-8.5) % Eos % (Auto) 2.2 (0-4.4) % Baso % (Auto) 0.9 (0.2-1.2) % Lymph # (Auto) 2.15 (0.9-3.2) K/mm3 Piatt # (Auto) 0.7 H (0.1-0.6) K/mm3 Eos # (Auto) 0.2 (0-0.3) K/mm3 Baso # (Auto) 0.1 (0.0-0.1) K/mm3 Abs Immat Gran (auto) 0.03 (0.00-0.031) K/mm3 Absolute Neuts (auto) 5.4 (1.3-6.7) K/mm3 Absolute Nucleated RBC 0.000 (0.0-0.012) K/mm3 Nucleated RBC % 0.0 (0.0-0.2) % PT 13.5 (11.1-14.7) Seconds INR 1.0 APTT 24.9 (22.3-36.8) Seconds Sodium 139 (137-145) mmol/L Potassium 4.0 (3.4-5.0) mmol/L Chloride 105 (98-107) mmol/L Carbon Dioxide 26 (22-30) mmol/L Anion Gap 8 (4-12) mmol/L BUN 10 D (9-20) mg/dL Creatinine 0.98 (0.7-1.3) mg/dL Estim Creat Clear Calc 86 ml/min Estimated GFR > 60 (59 - ) Glucose 81 (65-110) mg/dL Calcium 9.0 (8.4-10.2) mg/dL Magnesium 2.1 (1.6-2.3) mg/dL Total Bilirubin 0.5 (0.2-1.3) mg/dL AST 27 (17-59) U/L ALT 26 (6-50) U/L Alkaline Phosphatase 95 (38-126) U/L Troponin I < 0.012 (0.000-0.034) ng/mL Total Protein 6.4 (6.3-8.2) g/dL Albumin 3.6 (3.5-5.1) g/dL <Carrington Carlin MD - Last Filed: 03/17/25 17:03> Imaging Data Radiologist's impression: ITS Impressions Head CT 03/17/25 15:29 IMPRESSION: 1. Normal aging brain. No fracture or acute intracranial process. Chest X-Ray 03/17/25 15:30 Impression: 1: No acute cardiopulmonary disease. <Carrington Carlin MD - Last Filed: 03/17/25 17:03> ECG Data EKG #1: ECG completion date: 03/17/25 <Carrington Carlin MD - Last Filed: 03/17/25 17:03> ECG completion time: 16:58 <Carrington Carlin MD - Last Filed: 03/17/25 17:03> EKG Interpretation: normal rate (64), normal QRS, normal QT, NL axis and other (atrial paced) <Carrington Carlin MD - Last Filed: 03/17/25 17:03> Discharge Plan Discharge Clinical Impression: Neck strain, Headache <Vira Huggins APRN - Last Filed: 03/17/25 14:45> Patient Disposition: Home <Vira Huggins APRN - Last Filed: 03/17/25 14:45> Condition: Stable <Vira Huggins APRN - Last Filed: 03/17/25 14:45> Instructions: Cervical Strain (ED), General Headache (ED) <Vira Huggins APRN - Last Filed: 03/17/25 14:45> Additional Instructions: Return ER if you have additional falls, you have chest pain and shortness of breath, you have new focal weakness or numbness, or you have additional concerns. <Vira Huggins APRN - Last Filed: 03/17/25 14:45> Patient Language: Estonian <Vira Huggins APRN - Last Filed: 03/17/25 14:45> Prescriptions: New cyclobenzaprine 10 mg tablet 10 mg PO TID PRN (Reason: muscle spasm) Qty: 20 0RF naproxen 375 mg tablet 375 mg PO BID Qty: 14 0RF No Action potassium chloride 20 mEq tablet,ER particles/crystals 20 meq PO DAILY meclizine 25 mg tablet 25 mg PO TID PRN (Reason: Vertigo) flecainide 50 mg tablet 50 mg PO Q12H Narcan 4 mg/actuation spray,non-aerosol 4 mg intranasal Q2M PRN (Reason: OVERDOSE) Rx Instructions: spray 1 dose into ONE nostril; alternate nostrils w each dose until help arrives hydrocodone-acetaminophen 10-325 mg tablet 1 tablet PO Q6H PRN (Reason: Pain) cholecalciferol (vitamin D3) 1,250 mcg (50,000 unit) tablet 1,250 mcg PO WEEKLY Qty: 14 1RF albuterol sulfate 2.5 mg /3 mL (0.083 %) solution for nebulization 2.5 mg inhalation Q6H PRN (Reason: shortness of breath or wheezing) Qty: 180 3RF lactulose 20 gram/30 mL solution 20 g PO BID 30 Days Qty: 1800 3RF Patient Comments: WAITING FOR INSURANCE APPROVAL Movantik 12.5 mg tablet 12.5 mg PO QAM Qty: 30 3RF Patient Comments: WAITING FOR INSURANCE APPROVAL Rx Instructions: must be taken on empty stomach; no food 1 hr after or 2-3 hrs before dose albuterol sulfate 90 mcg/actuation HFA aerosol inhaler 1 - 2 puff inhalation Q4-6H PRN (Reason: shortness of breath or wheezing) Qty: 8.5 2RF tiotropium bromide [Spiriva with HandiHaler] 18 mcg capsule, w/inhalation device 1 cap inhalation DAILY 30 Days Qty: 30 5RF Rx Instructions: puncture 1 cap using device; one cap = 2 inhalations aspirin 81 mg tablet,chewable 81 mg PO DAILY ergocalciferol (vitamin D2) 1,250 mcg (50,000 unit) capsule 50,000 unit PO WEEKLY lidocaine 5 % adhesive patch,medicated 1 patch topical DAILY Qty: 15 0RF Rx Instructions: leave on most painful area for up to 12 hrs hydrocortisone 1 % cream with perineal applicator 1 applic RECTAL BID PRN (Reason: hemorrhoids) Qty: 28.4 0RF mupirocin [Centany] 2 % ointment 1 applic topical TID Qty: 22 0RF doxycycline hyclate 100 mg capsule 100 mg PO BID 7 Days Qty: 14 0RF loratadine [Allergy Relief (loratadine)] 10 mg tablet 10 mg PO DAILY 30 Days Qty: 30 3RF meloxicam 7.5 mg tablet See Rx Instructions .ROUTE .COMPLEX Qty: 30 5RF Dose Instruction: 7.5 MG ORALLY DAILY Rx Instructions: 7.5 MG ORALLY DAILY triamcinolone acetonide 0.1 % cream 1 applic topical BID PRN (Reason: rash lower legs) Qty: 80 0RF fluticasone propionate 50 mcg/actuation spray,suspension See Rx Instructions .ROUTE .COMPLEX Qty: 16 11RF Dose Instruction: USE 1 SPRAY INTO EACH NOSTRIL TWICE A DAY Rx Instructions: USE 1 SPRAY INTO EACH NOSTRIL TWICE A DAY atorvastatin 10 mg tablet 10 mg PO DAILY Qty: 90 1RF fluvastatin 20 mg capsule 20 mg PO DAILY Qty: 90 1RF folic acid 1 mg tablet See Rx Instructions .ROUTE .COMPLEX Qty: 30 12RF Dose Instruction: TAKE 1 TABLET BY MOUTH EVERY DAY Rx Instructions: TAKE 1 TABLET BY MOUTH EVERY DAY metoprolol tartrate 25 mg tablet 25 mg PO BID Qty: 270 1RF Rx Instructions: Take 2 tablets qam and take 1 tablet po qpm azelastine 137 mcg (0.1 %) spray,non-aerosol See Rx Instructions .ROUTE .COMPLEX Qty: 30 5RF Dose Instruction: INSTILL 1 SPRAY IN EACH NOSTRIL EVERY 12 HOURS Rx Instructions: INSTILL 1 SPRAY IN EACH NOSTRIL EVERY 12 HOURS duloxetine 60 mg capsule,delayed release(DR/EC) See Rx Instructions .ROUTE .COMPLEX Qty: 60 2RF Dose Instruction: TAKE 1 CAPSULE BY MOUTH TWICE DAILY Rx Instructions: TAKE 1 CAPSULE BY MOUTH TWICE DAILY budesonide-formoterol [Symbicort] 160-4.5 mcg/actuation HFA aerosol inhaler See Rx Instructions .ROUTE .COMPLEX Qty: 10.2 3RF Dose Instruction: INHALE 2 SPRAYS TWICE DAILY RINSE MOUTH AFTER USE Rx Instructions: INHALE 2 SPRAYS TWICE DAILY RINSE MOUTH AFTER USE losartan 25 mg tablet See Rx Instructions .ROUTE .COMPLEX Qty: 180 0RF Dose Instruction: TAKE 1 TABLET BY MOUTH TWICE DAILY Rx Instructions: TAKE 1 TABLET BY MOUTH TWICE DAILY clonazepam 1 mg tablet 1 mg PO TID Qty: 90 0RF pantoprazole 40 mg tablet,delayed release (DR/EC) 40 mg PO BID Qty: 180 1RF <Vira Huggins APRN - Last Filed: 03/17/25 14:45> Follow-up/Referrals: Jose Duncan MD [Primary Care Provider] - 1 Week <Vira Huggins APRN - Last Filed: 03/17/25 14:45>
--- OUTSIDE RECORDS SUMMARY | 2025-03-17 14:45 | XMS_ITS | Continuity of Care Document ---
Author Organization [facility] Address [address] [place] [address] Phone Care Team Providers Care Senior Hardware Engineer Name Role Phone [facility] Unavailable Unavailable Procedures Procedure Date WHO, Wrist Extension Control Cock-up, No nmolded, P Slings Advance Directives Directive Yes / No Effective Date File Name No Information Encounters Encounter Description Practice Location Reason(s) For Visit Diagnoses Date Provider Providers Copied on Encounter [facility], [address], [place], [address], tel:[phone] [facility] No Information 9 [facility]. [address], [place], [address], [place]. tel:[phone] Referring Provider: Carlos Reynoso, [address] [place], [address] . tel:[phone] [facility], [address], [place], [address], tel:[phone] [facility] No Information 9 [facility]. [address], [place], [address], [place]. tel:[phone] Referring Provider: Carlos Reynoso, [address] [place], [address] . tel:[phone] Family History Family Member Type Diagnosis Age [...]
--- OUTSIDE RECORDS SUMMARY | 2025-03-17 14:45 | XMS_ITS | Continuity of Care Document ---
Author Organization [facility] Address [address] [place] [address] Phone Care Team Providers Care Resin Coater Name Role Phone Nathanael Hernandez DO Unavailable [...] CT Cervical Spine WO Contrast 4 Office[facility]outpatient visit,[facility] 2013 [place] [facility] [place] [facility] [place] X-ray exam of wrist, complete 9 Removal of wrist bones Carpal tunnel surgery Office[place] [facility] [place] [facility], [facility] [place] X-ray exam of wrist, complete 9 Advance Directives Directive Yes / No Effective Date File Name No Information Encounters Encounter Description Practice Location Reason(s) For Visit Diagnoses Date Provider Providers Copied on Encounter [facility], [address] [place] [address], [id number], tel:[phone] [facility] No Information 5 David Huffman. [address] [place] [address], [id number] , . tel:[phone] [facility], [address] [place] [address], [id number], tel:[phone] [facility] No Information 0 4 David Huffman. [address] [place] [address], [id number] , . tel:[phone] Referring Provider: Nathanael San, [address] [place], [address] . tel:[phone] Office/outpat ient visit,new, low [facility], [address] [place] [address], [id number], tel:[phone] [facility] cervical spine pain (chief complaint)c ervical spine (chief complaint) Cervicalgia- Pain In Neck 0 4 David Huffman. [address] [place] [address], [id number] , [place]. tel:[phone] Office/outpat ient visit,est, mod [facility], [address] [place] [address], [id number], tel:[phone] [facility] No Information 9 Rayna Tavarez. [address] [place] [address], [id number], [place]. [phone] Referring Provider: Carlso Reynoso, [place], [address]. tel:[phone] Office/outpat ient visit,[facility], [facility], [address] [place] [address], [id number], tel:[phone] [facility] No Information 1 9 Shakir Gonzalez. [address] [place] [address], [id number] , . [phone] Referring Provider: Carlos Reynoso, [address] [place], [address]. tel:[phone] [facility], [address] [place] [address], [id number], tel:[phone] [facility] No Information 9 Erthall Jhony. [address] [place] [address], [id number] , . tel:[phone] Referring Provider: Carlos Reynoso, [address] [place], [address]. tel:[phone] [facility], [address] [place] [address], [id number], [phone] [facility] No Information 9 Shakir Gonzalez. [address] [place] [address], [id number] , . tel:[phone] Office/outpat ient visit,[facility], [facility], [address] [place] [address], [id number], [phone] [facility] No Information 9 Shakir Gonzalez. [address] [place] [address], [id number] , . tel:[phone] Referring Provider: Carlos Reynoso, [address] [place] [address], [id number]. tel:[phone] Office/outpat ient visit,[facility], [facility], [address] [place] [address], [id number], [phone] [facility] No Information 9 Erthall Jhony. [address] [place] [address], [id number] , . [phone] Referring Provider: Cralos Reynoso, [address] [place] [address], [id number] . tel:[phone] Family History Family Member Type Diagnosis Age [...]
[2025-03-17] MEDS: HYDROcodone/acetaminophen (*CRX) 5-325 MG TABLET 1 TAB PO (15:54)
[2025-03-17 15:56] VITALS: BP 166/89; PULSE 61; RESP 18; O2SAT 95
[2025-03-17 16:05] LABS: Basophils Absolute Auto 0.1 K/mm3 (0.0-0.1); Basophils Percent Auto 0.9 % (0.2-1.2); Eosinophils Absolute Auto 0.2 K/mm3 (0-0.3); Eosinophils Percent Auto 2.2 % (0-4.4); Hematocrit 42.7 % (42.0-52.0); Hemoglobin 14.1 g/dL (14.0-18.0); Immature Granulocyte Absolute 0.03 K/mm3 (0.00-0.031); Immature Granulocyte Percent A 0.4 % (0-0.5); Lymphocytes Absolute Auto 2.15 K/mm3 (0.9-3.2); Lymphocytes Percent Auto 25.1 % (18.3-44.2); Mean Corpuscular Hemoglobin 30.9 pg (26-34); Mean Corpuscular Volume 93.6 fl (80-100); Mean Platelet Volume 8.8 fl (7.4-10.4); Monocytes Absolute Auto 0.7 K/mm3 (0.1-0.6); Monocytes Percent Auto 8.1 % (2.6-8.5); Neutrophils Absolute Auto 5.4 K/mm3 (1.3-6.7); Neutrophils Percent Auto 63.3 % (45.5-73.1); Platelet Count Result 259 k/mm3 (150-375); Red Blood Count 4.56 M/mm3 (4.6-6.20); Red Cell Distribution Width 14.2 % (11.5-14.5); White Blood Count 8.6 K/mm3 (4.5-10.0)
[2025-03-17 16:15] LABS: Alanine Aminotransferase 26 U/L (6-50); Albumin Level 3.6 g/dL (3.5-5.1); Alkaline Phosphatase 95 U/L (38-126); Anion Gap 8 mmol/L (4-12); Aspartate Amino Transferase 27 U/L (17-59); Bilirubin,Total 0.5 mg/dL (0.2-1.3); Blood Urea Nitrogen 10 mg/dL (9-20); Carbon Dioxide 26 mmol/L (22-30); Chloride 105 mmol/L (98-107); Estimated CRCL calculation 86 ml/min; Estimated Glomerular Filt Rate > 60; Glucose 81 mg/dL (65-110); Magnesium 2.1 mg/dL (1.6-2.3); Sodium 139 mmol/L (137-145); Total Protein 6.4 g/dL (6.3-8.2)
[2025-03-17 16:27] LABS: Troponin I < 0.012 ng/mL (0.000-0.034)
[2025-03-17 16:36] LABS: Prothrombin Time 13.5 Seconds (11.1-14.7)
[2025-03-17 16:37] LABS: Partial Thromboplastin Time 24.9 Seconds (22.3-36.8)
[2025-03-17 17:26] VITALS: BP 147/92; PULSE 58; RESP 19; O2SAT 100
== END 2025-03-17 17:27 | disposition home or self-care (01) ==
PROVIDERS: Registered Nurse; Emergency Provider Emergency Medicine; PCP Family Medicine
DX: S16.1XXA Strain of muscle, fascia and tendon at neck level, initial encounter (principal); R51.9 Headache, unspecified; R29.6 Repeated falls; I48.91 Unspecified atrial fibrillation; I25.10 Atherosclerotic heart disease of native coronary artery without angina pectoris; J44.9 Chronic obstructive pulmonary disease, unspecified; E78.5 Hyperlipidemia, unspecified; R73.03 Prediabetes; M19.90 Unspecified osteoarthritis, unspecified site; F41.9 Anxiety disorder, unspecified; F17.210 Nicotine dependence, cigarettes, uncomplicated; Z95.0 Presence of cardiac pacemaker; Z85.29 Personal history of malignant neoplasm of other respiratory and intrathoracic organs; Z86.0100 Personal history of colon polyps, unspecified; Z86.718 Personal history of other venous thrombosis and embolism; R94.31 Abnormal electrocardiogram [ECG] [EKG]; Z79.82 Long term (current) use of aspirin; Z79.899 Other long term (current) drug therapy; Z79.02 Long term (current) use of antithrombotics/antiplatelets; W18.30XA Fall on same level, unspecified, initial encounter
CPT/HCPCS: 36415; 70450; 71046; 80053; 83735; 84484; 85025; 85610; 85730; 93005; 99284; A9270

== ENCOUNTER 2025-03-27 01:06 | Day surgery (SDC) | payer OTHER, SELFPAY ==
[2025-03-22 10:57] VITALS: BMI 27.0
--- NOTE | 2025-03-22 11:19 | PC.NURSE ---
Spoke with PATIENT regarding medication PLAVIX. PATIENT verbalizes understanding that the last dose is to be taken on 03/22/25 and the Endoscopist will instruct them when to restart after the procedure.
--- OUTSIDE RECORDS SUMMARY | 2025-03-27 01:09 | XMS_ITS | Encounter Summary ---
Author Organization [facility] Address [address] [place] [address] Care Team Providers Care Rear Admiral Name Role Phone Kermit Hernandez MD Primary Care Provider [phone] Jose Duncan MD Primary Care Provider [phone] Encounter Details Date Type Department Care Team (Late st Contact Info) Description 02/08/2021 [employer] Message Enc [facility] [address] [place] [address] Jodie Hunt NP [address] [place] [address] RE: Follow Up/Update Social History [...] on filedocumented in this encounter Care Teams Rear Admiral Relationship Specialty Start Date End Date Kermit Hernandez MD PCP - General FAMILY PRACTICE 09/21/17 07/01/24 Jose Duncan MD [address] [place] [address] PCP - General 07/02/24 documented as of this encounter
--- OUTSIDE RECORDS SUMMARY | 2025-03-27 01:09 | XMS_ITS | Clinical Summary ---
Author Organization [facility] Address [address] [place] [address] Care Team Providers Care Barrel Charrer Name Role Phone Jose Duncan MD Primary Care Provider [phone] Source Comments [facility],non-owned Affiliates and Associated Physician Practices is amultiple site organization consisting of ambulatory clinics and hospital sitesin [place], [place], [place] and [place]. This disclosure is being madepursuant to the Care Everywhere program and may not contain all information available regarding this patient. Last updated 18.[facility] Allergies No known active allergies Medications * [...] Active vitamin D, ergocalciferol, (Drisdol) 1.25 MG (61000 UT) capsuleIndicati ons:Low vitamin D level,Low folate [...] Dysfunction. DOI 08/24/2020-Dr Bal Hernandez. [facility] Remote transfer request submitted. 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 FUNCTIONAL ANALYST/epidural - cont neurontin Chronic respiratory failure 11/01/2020 [...] pleural effusion Coronary artery disease invo lving [place] coronary artery of [place] heart without angina pectoris 07/31/2020 NSVT (nonsustained ventricular tachycardia) 07/13 Overview (04/11/2022): Last Assessment & Plan: - Cont home medications Added automatically from request for surgery [id number] Last Assessment & Plan: Has history of and has PPM - Cont BB as BP tolerates - flecainide continued Chronic fatigue 07/31/2020 SOB (shortness of breath) 07/31/2020 Bradycardia 07/31/2020 Benign prostatic hyperplasia with urinary obstru ction 12/30/2018 Overview (04/11/2022): Added automatically from request for surgery [id number] Headache syndrome, complicated 09/20/2017 Dyslipidemia 09/19/2017 Overview [...] Neuralgia 12/16/2012 Gout 05/21/2012 Rheumatoid arthritis of [facility] with negative rheumatoid factor 01/30/2010 Dysthymic [...] Date Smoking Tobacco: Every Day Cigarettes 2 54.5 Started: 1968 Smokeless Tobacco: Current Chew Comments:quit [...] on file Legal Sex Male 11:59 AM MECHANICAL CAD DRAFTER Gender Identity Not on file Sexual Orientation Not on file 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 Date 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 End 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 Not on file [...] 200.7 cm (6' 7) 12/19/2022 10:50 AM MECHANICAL CAD DRAFTER Body Mass Index 27.83 12/19/2022 10:50 AM MECHANICAL CAD DRAFTER Plan of Treatment Health Maintenance Due Date [...] this topic Medical Devices Implanted Type Area Screen Operator Device Identifier Shelf Expiration Date Model / Serial / Lot Medtronic Pacemaker; Mri Conditional 1.5t Or 3t [id number] / [id number] / Insurance [facility] MEDICARE MANAGED CARE PLAN GENERIC MEDICARE ADV [facility] Care Teams Barrel Charrer Relationship Specialty Start Date End Date Jose Duncan MD [address] [place] [id number] PCP - General 01/27/22
--- OUTSIDE RECORDS SUMMARY | 2025-03-27 01:09 | XMS_ITS | Referral Summary ---
Author Organization [facility] Address [address] [place] [address] Care Team Providers Care Learning Disabilities Specialist Name Role Phone Jose Duncan MD Primary Care Provider [phone] Encounters Date Type Department Care Team Description 03/24/[address] [facility] Cardiology [address] [place] [address] [place] [phone] Sergey Chang MD 03/22/2025 1:30 PM CDT Office Visit [facility] Cardiology [address] [place] [address] [place] [phone] Sergey Chang MD PAD (peripheral artery disease) (Primary Dx); Status post angioplasty with stent; Paroxysmal atrial fibrillation (HCC); Presence of Amulet left atrial appendage closure device; SSS (sick sinus syndrome) (HCC); Presence of permanent cardiac pacemaker; Tobacco abuse 03/20/[address] [facility] Cardiology [address] [place] [address] [place] [phone] Sergey Chang MD 01/24/[address] [facility] Cardiology [address] [place] [address] [place] [phone] Sergey Chang MD 01/24/2025 1:00 PM CDT Ancillary Procedure [facility] Cardiology [address] [place] [address] [place] [phone] Cardiac pacemaker in situ [Z95.0] (Primary Dx); SSS (sick sinus syndrome) (HCC); Paroxysmal atrial fibrillation (HCC) 01/24/2025 1:00 PM CDT Office Visit [facility] Cardiology [address] [place] [phone] Veronica Zapata NP Dyslipidemia (Primary Dx); Palpitations 01/23/2025 Telephone Cardiology Teena Dillon DO 01/05/2025 Orders Only [facility] Vascular and Vein Surgery [address] [place] [phone] Alexander Car MD 01/04/[address] [facility] Vascular at [address] [place] [phone] Alexander Car MD PAD (peripheral artery disease) (Primary Dx) 01/04/2025 9:00 AM CDT Office Visit [facility] Vascular at [address] [place] [phone] Alexander Car MD PAD (peripheral artery disease) (Primary Dx); Dyslipidemia; Essential (primary) hypertension from Last 3 Months Allergies No known [...] needed 0 Active miscellaneous medical supply misc 2L/CONFIGURATION DEVELOPER at night Activ e meclizine (ANTIVERT) 25 [...] Active Additional Information Patient not taking.Reported on 03/22/2025 metoprolol tartrate (LOPRESSOR) 50 mg immediate release [...] months. Assessment & Plan (11/28/2024 10:39 AM CATH LAB): Continue ASA Plavix and statin therapy. Noninvasive [...] Sinus Node Dysfunction. DOI 08/24/2020-Dr Bal Hernandez. [facility] Remote transfer request submitted. 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 - elevated to 2.27 on admission - received hydration and this AM has decreased to 1.53 - hold LETTY, oral potassium (home medication) - avoid hypotension and nephrotoxic medications. - Labs in AM Atelectasis 11/02/2020 Assessment & Plan (11/02/2020 8:09 AM CATH LAB): - noted on post op CXR - very congested sounding cough - pul toileting today CVA (cerebral vascular accident) ([facility]) 11/01 Overview (12/04/2022): Last [...] fall Assessment & Plan (11/01/2020 5:15 PM CATH LAB): high-grade stenosis noted at the left posterior [...] noted Assessment & Plan (11/01/2020 5:19 PM CATH LAB): Hx COPD, home O2 use at night - Cont inhalers Chronic pain 11/01/2020 Overview (12/04/2022): Last Assessment & Plan: - CLINICAL TRIAL SPECIALIST/epidural - cont neurontin Last Assessment & Plan: - cont medications - monitor Last Assessment & Plan: - CLINICAL TRIAL SPECIALIST/epidural - cont neurontin Assessment & Plan (03/05/2021 5:19 PM CDT): - cont medications - monitor Assessment & Plan (02/06/2021 7:55 AM CDT): - cont medications - monitor Assessment & Plan (11/01/2020 5:22 PM CATH LAB): - CLINICAL TRIAL SPECIALIST/epidural - cont neurontin 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 Overview [...] effusion Assessment & Plan (11/01/2020 5:05 PM CATH LAB): S/P plication of the diaphragm - Pain control-CLINICAL TRIAL SPECIALIST/epidural - IVF - Jimenez - ADAT VT (ventricular tachycardia) 07/31/2020 Overview (12/04/2022): Last Assessment & Plan: Has history of and has PPM - Cont BB as BP tolerates - flecainide continued Last Assessment & Plan: - Cont home medications Added automatically from request for surgery [id number] Last Assessment & Plan: Has history of and has PPM - Cont BB as BP tolerates - flecainide continued Added automatically from request for surgery [id number] Assessment & Plan (03/05/2021 5:25 PM CDT): - Cont home medications Assessment & Plan (02/04/2021 11:44 PM CDT): Continue home flecainide Assessment & Plan (11/01/2020 5:16 PM CATH LAB): Has history of and has PPM - Cont BB as BP tolerates - flecainide continued Bradycardia 07/31/2020 Other fatigue 07/31/2020 Coronary artery disease invo lving [place] coronary artery of [place] heart without angina pectoris 07/31/2020 SOB (shortness of breath) on exertion 07/31/2020 Headache syndrome, complicated 09/20/2017 Dyslipidemia 09/19/2017 Overview (12/04/2022): Last Assessment & Plan: Lipid panel and statin started Last Assessment & Plan: Lipid panel and statin started Assessment & Plan (01/06/2025 9:59 AM CDT): Stable continue Lipitor Assessment & Plan (11/28/2024 10:40 AM CATH LAB): Stable continue Lipitor Dysuria 05/19/2017 Encounter for [...] (12/04/2022): Added automatically from request for surgery [id number] Added automatically from request for surgery [id number] Last Assessment & Plan: No obstructive symptoms now.. 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arthritis of [facility] sites with negative rheumatoid factor 01/30/2010 Dysthymic disorder 01/25/2010 Essential (primary) hypertension 04/06/2006 Overview (12/04/2022): Last Assessment & Plan: Monitor bp treat if sbp>220 Awaiting neurology recommendations Last Assessment & Plan: Monitor bp treat if sbp>220 Awaiting neurology recommendations Assessment & Plan (01/06/2025 9:59 AM CDT): Stable metoprolol Assessment & Plan (11/28/2024 10:40 AM CATH LAB): Stable continue losartan 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 Cont to smoke [...] Date Smoking Tobacco: Every Day Cigarettes 0.5 54.5 Started: 1968 Smokeless Tobacco: Current Chew Tobacco [...] on file Legal Sex Male 3:54 AM CATH LAB Gender Identity Not on file Sexual Orientation Not on file Last Filed Vital Signs Vital Sign Reading Time Taken Comments Blood Pressure 130/78 03/22/2025 1:49 PM CDT Pulse 90 03/22/2025 1:49 PM CDT Temperature 36.6 C (97.8 F) 10/24/2024 7:22 AM CATH LAB Respiratory Rate 16 10/24/2024 7:22 AM CATH LAB Oxygen Saturation 96% 03/22/2025 1:49 PM CDT Inhaled Oxygen Concentration - - Weight 109.3 kg (241 lb) 03/22/2025 1:49 PM CDT Height 200.7 cm (6' 7) 03/22/2025 1:49 PM CDT Body Mass Index 27.15 03/22/2025 1:49 PM CDT Plan of Treatment Not on file Medical Devices Implanted Type Area Property Claims Manager Device Identifier Shelf Expiration Date Model / Serial / Lot [employer] Inc Vascade Mvp 6-12fr Venous Closure [id number] - [id number] Implanted:Qty: 1 on 12/12/2022 by Sergey Chang MD at [facility] Collagen Right: Femoral Vein [employer]iva Medical Inc 08/26/2024 [id number] / / [id number] Harry Vascular Percutaneous Transcatheter Amplatzer Amulet 25mm [id number] - [id number] Implanted:Qty: 1 on 12/12/2022 by Sergey Chang MD at [facility] Left Atrial Appendage Occluder Left: Atrial Appendage Harry V[employer] 06/11/2027 9-[id number] / / [id number] Pacemaker Chest [employer]imple[employer] Vascade Mvp 6-12fr Venous Closure [id number] - [id number] Implanted:Qty: 1 on 12/12/2022 by Sergey Chang MD at [facility] CardiThisNext Medical Inc [id number] -[id number] / / [id number] Alem Epic Od9 Mm L40 Mm L110 Cm Otw Radiopaque Self Expand Iliac Artery L75 Cm Stent Vascular Nitinol Accepts .035 In Guidewire 6 Fr Introducer Sheath [id number] - [id number] Implanted:Qty: 1 on 10/24/2024 by Sergey Chang MD at [facility] [email or web address] Alem 07/23/2025 [id number] / / [id number] Access Closure Inc Mynx Control 6-7fr 2 Mode Balloon Catheter Sealant Lock Syringe [id number] - [id number] Implanted:Qty: 1 on 10/24/2024 by Sergey Chang MD at [facility] Access Closure Inc 06/16/2026 [id number] / / [id number] Procedures Procedure Name Priority Date/Time Associated Diagnosis Comments ELECTROCARDIOGRAM REPORT Routine 03/22/2025 PAD (peripheral artery disease) Paroxysmal atrial fibrillation (HCC) DEVICE CHECK - REMOTE Routine 01/24/2025 3:32 PM CDT SSS (sick sinus syndrome) (HCC) Paroxysmal atrial fibrillation (HCC) POCT LIPID PANEL Routine 01/24/2025 3:15 PM CDT Dyslipidemia CTA ABDOMINAL AORTA AND BILATERAL ILIOFEMORAL RUNOFF Schedule Routine, Read Routine (OP Routine) 09/26/2024 3:21 PM CATH LAB Claudication PAD (peripheral artery disease) from Last 3 Months or Most Recently Relevant to Health Maintenance Results * Electrocardiogram Report (03/22/2025) 03/22/2025 Sergey Chang MD ECG ORDERABLES Final Result * DEVICE CHECK - REMOTE (01/24/2025 3:32 PM CDT) Anatomical Region Laterality Modality Other Narrative 01/25/2025 4:17 PM CDT Medtronic Dual Pacemaker. Dx; Sinus Node Dysfunction, PAF, VT. DOI 08/24/2020-Dr Bal Hernandez. [facility]. Routine AAIR<>DDDR Pacemaker Remote. Transmission attached. Battery status: 2.99 V, 9.5 years remaining battery life to SOFIA. Stable lead impedances, pacing and sensing thresholds. Presenting rhythm: AP-VS. AP-95%, WELL LOGGER-<0.1%. 1 AT/AF episode noted, 30 minutes on 01/14/2025. IEGM demonstrates Afib with v-rate up to 153 bpm. AF Ione <0.1%. 5 Fast A&V episodes noted, iegm's [...] CARE TEST ORDERABLE S Final Result * CTA Abdominal Aorta And Bilateral Iliofemoral Runoff (09/26/2024 3:21 PM CATH LAB) Anatomical Region Laterality Modality Body Bilateral Computed Tomogra phy 09/26/2024 4:04 PM CATH LAB Impressions 09/26/2024 4:04 PM CATH LAB 1. ATHEROSCLEROTIC CHANGES IN THE ABDOMINAL AORTA [...] Jose Traylor M.D. Narrative 09/26/2024 4:04 PM CATH LAB EXAMINATION: CTA ABDOMINAL AORTA AND BILATERAL ILIOFEMORAL [...] Most Recently Relevant to Health Maintenance Insurance [facility] Advance Directives For more information, please contact: [phone] * Full Code (Latest Code Status on File) Date Activated Date Inactivated Comments 03/05/2021 4:15 PM 03/06/2021 4:31 PM * Full Code Date Activated Date Inactivated Comments 02/04/2021 9:07 PM 02/08/2021 7:11 PM * Full Code Date Activated Date Inactivated Comments 11/01/2020 4:59 PM 11/04/2020 5:52 PM Care Teams Learning Disabilities Specialist Relationship Specialty Start Date End Date Jose Duncan MD PCP - General Family Practice 06/05/21
--- OUTSIDE RECORDS SUMMARY | 2025-03-27 01:09 | XMS_ITS | Continuity of Care Document ---
Author Organization [facility] Address [address] [place] [address] Phone Care Team Providers Care Optic Fibre Drawer Name Role Phone [facility] Unavailable Unavailable Procedures Procedure Date WHO, Wrist Extension Control Cock-up, No nmolded, P Slings Advance Directives Directive Yes / No Effective Date File Name No Information Encounters Encounter Description Practice Location Reason(s) For Visit Diagnoses Date Provider Providers Copied on Encounter [facility], [address], [place], [address], tel:[phone] [facility] No Information 9 [facility]. [address], [place], [address], [place]. tel:[phone] Referring Provider: Carlos Reynoso, [address] [place], [address] . tel:[phone] [facility], [address], [place], [address], tel:[phone] [facility] No Information 9 [facility]. [address], [place], [address], [place]. tel:[phone] Referring Provider: Carlos Reynoso, [address] [place], [address] . tel:[phone] Family History Family Member Type Diagnosis Age At Onset No Information Payers Payer name Insurance type Covered republican ID Authoriza tion(s) No Information Social History [...]
--- OUTSIDE RECORDS SUMMARY | 2025-03-27 01:09 | XMS_ITS | Clinical Summary ---
Author Organization [facility] Address [address] [place] [address] Care Team Providers Care Software Applications Architect Name Role Phone Jose Duncan MD Primary Care Provider [phone] Allergies Active Allergy Reactions Criticality Noted Date [...] Bradycardia 07/31/2020 NSVT (nonsustained ventricul ar tachycardia) ([facility]) 07/31/2020 Coronary artery disease invo lving [place] coronary artery of [place] heart without angina pectoris 07/31/2020 SOB (shortness [...] Comments Blood Pressure 154/92 09/10/2020 1:09 PM MAGNET VALVE ASSEMBLER Pulse 93 09/10/2020 1:09 PM MAGNET VALVE ASSEMBLER Temperature 36.9 C (98.4 F) 06/04/2020 1:13 PM CDT Respiratory Rate 20 07/31/2020 12:00 PM CDT Oxygen Saturation 97% 09/10/2020 1:09 PM MAGNET VALVE ASSEMBLER Inhaled Oxygen Concentration - - Weight 110.7 kg (244 lb) 09/10/2020 1:09 PM MAGNET VALVE ASSEMBLER Height 200.7 cm (6' 7) 09/10/2020 1:09 PM MAGNET VALVE ASSEMBLER Body Mass Index 27.49 09/10/2020 1:09 PM MAGNET VALVE ASSEMBLER Plan of Treatment Health Maintenance Due Date [...] this topic Medical Devices Implanted Type Area Respiratory Equipment Assistant Device Identifier Shelf Expiration Date Model / Serial / Lot Ra Lead Implant-2019 Implanted:Qty: 1 on 08/24/2020 by Edwar Harry MD Lead Implant Right: Atrium MEDTRONIC CARDIAC RHYTHM AND HEART FAILURE - DIV M 5076-52 / [id number] / Rv Lead Implant-2019 Implanted:Qty: 1 on 08/24/2020 by Edwar Harry MD Lead Implant Right: Ventricle MEDTRONIC CARDIAC RHYTHM AND HEART FAILURE - DIV M 5076-58 / [id number] / Kelli Xt Mri Pacemaker Medtronic-08/12 Implanted:08/12 by Edwar Harry MD (Quantity not on file) Chest [employer] [id number] / [id number] / Description:MRI Conditional under following conditions: [...] to C7, Supine or Prone only Insurance [facility] [place] [id number] [place] Care Teams Software Applications Architect Relationship Specialty Start Date End Date Jose Duncan MD [address] [place] [address] PCP - General 07/02/24
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
--- OUTSIDE RECORDS SUMMARY | 2025-03-27 01:09 | XMS_ITS | Continuity of Care Document ---
Author Organization [facility] Address [address] [place] [address] Phone Care Team Providers Care Equipment Tester Name Role Phone Nathanael Hernandez DO Unavailable [...] CT Cervical Spine WO Contrast 4 Office/outpatient visit,[facility] 2013 [facility] X-ray exam of wrist, complete 9 Removal of wrist bones Carpal tunnel surgery Office/outpatient [facility] Office/outpatient visit,[facility] 2008 X-ray exam of wrist, complete 9 Advance Directives Directive Yes / No Effective Date File Name No Information Encounters Encounter Description Practice Location Reason(s) For Visit Diagnoses Date Provider Providers Copied on Encounter [facility], [address] [place] [address], [id number], tel:[phone] [facility] No Information 5 David Huffman. [address] [place] [address], [id number] , . tel:[phone] [facility], [address] [place] [address], [id number], tel:[phone] [facility] No Information 0 4 David Huffman. [address] [place] [address], [id number] , . tel:[phone] Referring Provider: Nathanael San, [address] [place], [address] . tel:[phone] Office/outpat ient visit,new, low [facility], [address] [place] [address], [id number], tel:[phone] [facility] cervical spine pain (chief complaint)c ervical spine (chief complaint) Cervicalgia- Pain In Neck 0 4 David Huffman. [address] [place] [address], [id number] , [place]. tel:[phone] Office/outpat ient visit,est, mod [facility], [address] [place] [address], [id number], tel:[phone] [facility] No Information 9 Rayna Tavarez. [address] [place] [address], [id number], [place]. [phone] Referring Provider: Carlos Reynoso, [place], [address]. tel:[phone] [facility]pat ient [facility], [address] [place] [address], [id number], tel:[phone] [facility] No Information 1 9 Shakir Gonzalez. [address] [place] [address], [id number] , . [phone] Referring Provider: Carlos Reynoso, [address] [place], [address]. tel:[phone] [facility], [address] [place] [address], [id number], tel:[phone] [facility] No Information 9 Erthall Jhony. [address] [place] [address], [id number] , . tel:[phone] Referring Provider: Carlos Reynoso, [address] [place], [address]. tel:[phone] [facility], [address] [place] [address], [id number], [phone] [facility] No Information 9 Shakir Gonzalez. [address] [place] [address], [id number] , . tel:[phone] Office/outpat ient visit,[facility], [address] [place] [address], [id number], [phone] [facility] No Information 9 Shakir Gonzalez. [address] [place] [address], [id number] , . tel:[phone] Referring Provider: Carlos Reynoso, [address] [place] [address], [address]. tel:[phone] Office/outpat ient visit,[facility], [facility], [address] [place] [address], [id number], [phone] [facility] No Information 9 Erthall Jhony. [address] [place] [address], [id number] , . [phone] Referring Provider: Carlos Reynoso, [address] [place] [address], [id number] . tel:[phone] Family History Family Member Type Diagnosis Age [...]
[2025-03-27 06:53] VITALS: BP 124/89; PULSE 100; RESP 20; TEMP 36.1; O2SAT 95
[2025-03-27 06:54] VITALS: BMI 27.1
[2025-03-27] MEDS: LACTATED RINGERS 1,000 ML 150 ML IV CONT (07:03)
--- NOTE | 2025-03-27 07:38 | WPDANESEPPF ---
Anes - Initial Pre Proc Eval Procedure: Operation Date: 03/27/25 08:00 Proposed Procedures p Esophagogastroduodenoscopy - Evert Ortiz MD Date/Time: 03/27/25 07:38 Surgeon: Evert Ortiz MD Pre Op Diagnosis: Dysphagia, unspecified, GERD Patient Data Age: 69 Gender: M Height: 2.01 m Weight: 109.3 kg Last Vital Signs Temp 36.1 C L 03/27/25 06:53 Pulse 100 03/27/25 06:53 Resp 20 03/27/25 06:53 BP 124/89 03/27/25 06:53 Pulse Ox 95 03/27/25 06:53 O2 Del Method Room Air 03/27/25 06:53 Allergies Allergy/AdvReac Type Severity Reaction Status Date / Time No Known Allergies Allergy Verified 03/27/25 06:49 Home Medications ?Medication ?Instructions ?Recorded ?Confirmed ?Type flecainide 50 mg tablet 50 mg PO Q12H 05/30/21 03/27/25 History hydrocodone 10 mg-acetaminophen 1 tablet PO Q6H PRN Pain 05/30/21 03/22/25 History 325 mg tablet meclizine 25 mg tablet 25 mg PO TID PRN Vertigo 05/30/21 03/22/25 History naloxone 4 mg/actuation nasal 4 mg intranasal Q2M PRN OVERDOSE 05/30/21 03/22/25 History spray (Narcan) potassium chloride 20 mEq 20 meq PO DAILY 05/30/21 03/22/25 History tablet,extended release(part/cryst) albuterol sulfate 2.5 mg/3 mL 2.5 mg (3 mL) inhalation Q6H PRN 02/21/22 03/22/25 Rx (0.083 %) solution for nebulization shortness of breath or wheezing #180 mL lactulose 20 gram/30 mL oral 20 g (30 mL) PO BID 30 days #1,800 04/22/23 03/22/25 Rx solution mL naloxegol 12.5 mg tablet (Movantik) 12.5 mg PO QAM #30 tabs 04/22/23 03/22/25 Rx aspirin 81 mg chewable tablet 81 mg PO DAILY 05/08/23 03/27/25 History loratadine 10 mg tablet (Allergy 10 mg PO DAILY 30 days #30 tabs 07/24/23 03/22/25 Rx Relief (loratadine)) lidocaine 5 % topical patch 1 patch topical DAILY #15 ea 08/31/23 03/22/25 Rx hydrocortisone 1 % topical cream 1 applic RECTAL BID PRN 09/18/23 03/22/25 Rx with perineal applicator hemorrhoids #28.4 grams meloxicam 7.5 mg tablet See Rx Instructions .Route 12/14/23 03/22/25 Rx .COMPLEX #30 tabs triamcinolone acetonide 0.1 % 1 applic topical BID PRN rash 03/15/24 03/22/25 Rx topical cream lower legs #80 grams fluticasone propionate 50 See Rx Instructions .Route 04/27/24 03/27/25 Rx mcg/actuation nasal .COMPLEX #16 mL spray,suspension albuterol sulfate 90 mcg/actuation 1 - 2 puff inhalation Q4-6H PRN 05/16/24 03/22/25 Rx aerosol inhaler shortness of breath or wheezing #8.5 grams tiotropium bromide 18 mcg capsule 1 cap inhalation DAILY 1 month #30 05/16/24 03/22/25 Rx with inhalation device (Spiriva caps with HandiHaler) atorvastatin 10 mg tablet 10 mg PO DAILY #90 tabs 07/19/24 03/22/25 Rx fluvastatin 20 mg capsule 20 mg PO DAILY #90 caps 07/22/24 03/27/25 Rx folic acid 1 mg tablet See Rx Instructions .Route 10/03/24 03/27/25 Rx .COMPLEX #30 tabs cholecalciferol (vitamin D3) 1,250 1,250 mcg PO WEEKLY #14 tabs 11/07/24 03/27/25 Rx mcg (50,000 unit) tablet metoprolol tartrate 25 mg tablet 25 mg PO BID #270 tabs 11/11/24 03/27/25 Rx azelastine 137 mcg (0.1 %) nasal See Rx Instructions .Route 01/03/25 03/27/25 Rx spray .COMPLEX #30 mL duloxetine 60 mg capsule,delayed See Rx Instructions .Route 01/11/25 03/27/25 Rx release .COMPLEX #60 caps budesonide-formoterol HFA 160 See Rx Instructions .Route 01/30/25 03/27/25 Rx mcg-4.5 mcg/actuation aerosol .COMPLEX #10.2 grams inhaler (Symbicort) mupirocin 2 % topical ointment 1 applic topical TID #22 grams 02/23/25 03/27/25 Rx (Centany) losartan 25 mg tablet See Rx Instructions .Route 02/27/25 03/27/25 Rx .COMPLEX #180 tabs clonazepam 1 mg tablet 1 mg PO TID #90 tabs 03/07/25 03/27/25 Rx pantoprazole 40 mg tablet,delayed 40 mg PO BID #180 tabs 03/15/25 03/27/25 Rx release cyclobenzaprine 10 mg tablet 10 mg PO TID PRN muscle spasm #20 03/17/25 03/22/25 Rx tabs naproxen 375 mg tablet 375 mg PO BID #14 tabs 03/17/25 03/22/25 Rx atorvastatin 40 mg tablet 40 mg PO QPM 03/22/25 03/27/25 History clopidogrel 75 mg tablet 75 mg PO DAILY 03/22/25 03/27/25 History gabapentin 300 mg capsule 300 mg PO Q12H 03/22/25 03/27/25 History tizanidine 2 mg tablet 2 mg PO Q12H PRN muscle spasticity 03/22/25 03/22/25 History Patient hx anesthesia problems: none Family hx anesthesia problems: none Results Review: All pre-operative results and documents have been reviewed as part of the pre-operative evaluation. [facility] Past Medical History Medical History Loss of consciousness for less than 30 minutes Foot drop, left Myalgia Inflammatory arthritis Decubitus ulcer of dorsum of foot Hx of malignant neoplasm of tonsil Presence of left atrial appendage closure device Afib Fecal impaction External hemorrhoid Dysphagia Hx of colonic polyps Therapeutic opioid-induced constipation (OIC) Prediabetes Anxiety Nocturnal hypoxemia Cervicalgia Tobacco dependence due to cigarettes HLD (hyperlipidemia) DVT (deep venous thrombosis) Pacemaker Migraine Erectile disorder due to medical condition in male CAD (coronary artery disease) Vertigo COPD (chronic obstructive pulmonary disease) Social History Social History Smoking packs per day: 0.25 Smoking cigarettes per day: 5.0 Years smoked: 45 Smoking pack-years: 11.25 Smoking status: Current every day smoker Tobacco type: cigarettes Second hand tobacco smoke exposure: Yes Additional smoking assessment comments: SMOKED 2-3 PACKS A DAY FOR MOST OF 45 YRS Alcohol intake: never Substance use: never Substance use type: does not use Lack of Transportation: No Lack of Food: Never True Current Housing: Decline to Answer Concerned About Future Housing: Decline to Answer Difficulty Paying Gas/Electric Bills: Decline to Answer Difficulty Paying for Meds: Decline to Answer Currently Unemployed: Decline to Answer Education: Decline to Answer Difficulty w/ Childcare or Family Care: Decline to Answer Living arrangements: with family Occupation/Education: other Gender identity (if verbalized by the patient): Male Spiritual care concerns: No Anes - Eval Final PreProcedure Day of Procedure 03/27/25 07:38 Patient weight: overweight Heart: regular rate and rhythm Lungs: decreased breath sounds Airway: Mallampati scale class II Neurological: alert and oriented Last oral intake: >/= 8 hours ASA classification: III Emergent: no Anesthetic plan: proceed Anesthesia type and monitoring: general GIVS and standard monitoring Results Review: All pre-operative results and documents have been reviewed as part of the pre-operative evaluation. Informed Consent: The patient's anesthetic plan and its attendant risks and benefits were discussed with the patient/family/POA. Questions were solicited and answers provided to the satisfaction of the patient/family/POA.
--- NOTE | 2025-03-27 08:01 | PM.HPGS ---
History of Present Illness History of Present Illness Consent: Risks, benefits, and alternatives have been discussed and questions answered. Patient agrees to proceed with procedure. Chief complaint: Dysphagia, unspecified, GERD Narrative: Russell Brown is a 69 year old male here with dysphagia, had esophageal dilation in the past Review of Systems Review of Systems: All systems reviewed & are unremarkable except as noted in HPI and below PMFSH Past Medical History Medical History Loss of consciousness for less than 30 minutes Foot drop, left Myalgia Inflammatory arthritis Decubitus ulcer of dorsum of foot Hx of malignant neoplasm of tonsil Presence of left atrial appendage closure device Afib Fecal impaction External hemorrhoid Dysphagia Hx of colonic polyps Therapeutic opioid-induced constipation (OIC) Prediabetes Anxiety Nocturnal hypoxemia Cervicalgia Tobacco dependence due to cigarettes HLD (hyperlipidemia) DVT (deep venous thrombosis) Pacemaker Migraine Erectile disorder due to medical condition in male CAD (coronary artery disease) Vertigo COPD (chronic obstructive pulmonary disease) Social History Social History Smoking packs per day: 0.25 Smoking cigarettes per day: 5.0 Years smoked: 45 Smoking pack-years: 11.25 Smoking status: Current every day smoker Tobacco type: cigarettes Second hand tobacco smoke exposure: Yes Additional smoking assessment comments: SMOKED 2-3 PACKS A DAY FOR MOST OF 45 YRS Alcohol intake: never Substance use: never Substance use type: does not use Lack of Transportation: No Lack of Food: Never True Current Housing: Decline to Answer Concerned About Future Housing: Decline to Answer Difficulty Paying Gas/Electric Bills: Decline to Answer Difficulty Paying for Meds: Decline to Answer Currently Unemployed: Decline to Answer Education: Decline to Answer Difficulty w/ Childcare or Family Care: Decline to Answer Living arrangements: with family Occupation/Education: other Gender identity (if verbalized by the patient): Male Spiritual care concerns: No Meds Home Medications and Allergies Home Medications ?Medication ?Instructions ?Recorded ?Confirmed ?Type flecainide 50 mg tablet 50 mg PO Q12H 05/30/21 03/27/25 History hydrocodone 10 mg-acetaminophen 1 tablet PO Q6H PRN Pain 05/30/21 03/22/25 History 325 mg tablet meclizine 25 mg tablet 25 mg PO TID PRN Vertigo 05/30/21 03/22/25 History naloxone 4 mg/actuation nasal 4 mg intranasal Q2M PRN OVERDOSE 05/30/21 03/22/25 History spray (Narcan) potassium chloride 20 mEq 20 meq PO DAILY 05/30/21 03/22/25 History tablet,extended release(part/cryst) albuterol sulfate 2.5 mg/3 mL 2.5 mg (3 mL) inhalation Q6H PRN 02/21/22 03/22/25 Rx (0.083 %) solution for nebulization shortness of breath or wheezing #180 mL lactulose 20 gram/30 mL oral 20 g (30 mL) PO BID 30 days #1,800 04/22/23 03/22/25 Rx solution mL naloxegol 12.5 mg tablet (Movantik) 12.5 mg PO QAM #30 tabs 04/22/23 03/22/25 Rx aspirin 81 mg chewable tablet 81 mg PO DAILY 05/08/23 03/27/25 History loratadine 10 mg tablet (Allergy 10 mg PO DAILY 30 days #30 tabs 07/24/23 03/22/25 Rx Relief (loratadine)) lidocaine 5 % topical patch 1 patch topical DAILY #15 ea 08/31/23 03/22/25 Rx hydrocortisone 1 % topical cream 1 applic RECTAL BID PRN 09/18/23 03/22/25 Rx with perineal applicator hemorrhoids #28.4 grams meloxicam 7.5 mg tablet See Rx Instructions .Route 12/14/23 03/22/25 Rx .COMPLEX #30 tabs triamcinolone acetonide 0.1 % 1 applic topical BID PRN rash 03/15/24 03/22/25 Rx topical cream lower legs #80 grams fluticasone propionate 50 See Rx Instructions .Route 04/27/24 03/27/25 Rx mcg/actuation nasal .COMPLEX #16 mL spray,suspension albuterol sulfate 90 mcg/actuation 1 - 2 puff inhalation Q4-6H PRN 05/16/24 03/22/25 Rx aerosol inhaler shortness of breath or wheezing #8.5 grams tiotropium bromide 18 mcg capsule 1 cap inhalation DAILY 1 month #30 05/16/24 03/22/25 Rx with inhalation device (Spiriva caps with HandiHaler) atorvastatin 10 mg tablet 10 mg PO DAILY #90 tabs 07/19/24 03/22/25 Rx fluvastatin 20 mg capsule 20 mg PO DAILY #90 caps 07/22/24 03/27/25 Rx folic acid 1 mg tablet See Rx Instructions .Route 10/03/24 03/27/25 Rx .COMPLEX #30 tabs cholecalciferol (vitamin D3) 1,250 1,250 mcg PO WEEKLY #14 tabs 11/07/24 03/27/25 Rx mcg (50,000 unit) tablet metoprolol tartrate 25 mg tablet 25 mg PO BID #270 tabs 11/11/24 03/27/25 Rx azelastine 137 mcg (0.1 %) nasal See Rx Instructions .Route 01/03/25 03/27/25 Rx spray .COMPLEX #30 mL duloxetine 60 mg capsule,delayed See Rx Instructions .Route 01/11/25 03/27/25 Rx release .COMPLEX #60 caps budesonide-formoterol HFA 160 See Rx Instructions .Route 01/30/25 03/27/25 Rx mcg-4.5 mcg/actuation aerosol .COMPLEX #10.2 grams inhaler (Symbicort) mupirocin 2 % topical ointment 1 applic topical TID #22 grams 02/23/25 03/27/25 Rx (Centany) losartan 25 mg tablet See Rx Instructions .Route 02/27/25 03/27/25 Rx .COMPLEX #180 tabs clonazepam 1 mg tablet 1 mg PO TID #90 tabs 03/07/25 03/27/25 Rx pantoprazole 40 mg tablet,delayed 40 mg PO BID #180 tabs 03/15/25 03/27/25 Rx release cyclobenzaprine 10 mg tablet 10 mg PO TID PRN muscle spasm #20 03/17/25 03/22/25 Rx tabs naproxen 375 mg tablet 375 mg PO BID #14 tabs 03/17/25 03/22/25 Rx atorvastatin 40 mg tablet 40 mg PO QPM 03/22/25 03/27/25 History clopidogrel 75 mg tablet 75 mg PO DAILY 03/22/25 03/27/25 History gabapentin 300 mg capsule 300 mg PO Q12H 03/22/25 03/27/25 History tizanidine 2 mg tablet 2 mg PO Q12H PRN muscle spasticity 03/22/25 03/22/25 History Allergies Allergy/AdvReac Type Severity Reaction Status Date / Time No Known Allergies Allergy Verified 03/27/25 06:49 Vital Signs Vital Signs - 24 hr 03/27/25 06:53 Temperature 97 F L Pulse Rate 100 Respiratory Rate 20 Blood Pressure 124/89 Pulse Oximetry 95 Oxygen Delivery Room Air Exam Const: General: comfortable and no acute distress HENMT: Face/Nose/Sinus: Normal nares present Eyes: General: appearance normal, both eyes and all related structures Neck: Neck: no JVD Resp: Auscultation: clear to auscultation bilaterally Cardio: Rate: regular rate Rhythm: regular rhythm GI: Inspection: non-distended GI Palp: Yes Soft to palpation Skin: General skin exam: normal color Neuro: Speech: normal speech Extrem: General: normal to inspection Psych: Mental Status: mental status grossly normal Assessment and Plan Assessment and plan (1) Dysphagia: Qualifiers: Dysphagia type: pharyngoesophageal phase Qualified Code(s): R13.14 - Dysphagia, pharyngoesophageal phase Code(s): R13.10 - Dysphagia, unspecified Status: Acute Assessment and Plan: egd
[2025-03-27 08:08] VITALS: BP 113/74; PULSE 63; RESP 15; O2SAT 94
--- NOTE | 2025-03-27 08:08 | S_PTH ---
PATIENT: Russell Brown LOC: ERICK Lazar#:[id number] AGE/SX: 69/M ROOM: RE03/27/[address]: Evert Ortiz MD : 1955 BED: DIS: 03/27/2025 SPEC #: [id number] RECD: 03/27/25 10:53 STATUS: LADONNA REMauro #: [id number] HAYLEY: 03/27/25 08:[address]: Evert Ortiz DEPT: [facility] Surgical RECD BY: Christi Turner ENTERED: 03/27/25 10:54 SP TYPE: Surgical OTHR DR: Jose Duncan MD Tissues: A - Gastric Biopsy B - Esophageal Biopsy Procedures: Hematoxylin and Eosin Stain Gross and Microscopic Level 4
[2025-03-27 08:18] VITALS: BP 116/72; PULSE 60; RESP 13; O2SAT 92
[2025-03-27 08:28] VITALS: BP 123/80; PULSE 60; RESP 26; O2SAT 95
== END 2025-03-27 08:42 | disposition home or self-care (01) ==
PROVIDERS: PCP Family Medicine; Referring Provider Nurse Practitioner Family; Visit Provider Internal Medicine Gastroenterology
PROC: 0DJ08ZZ Inspection of Upper Intestinal Tract, Via Natural or Artificial Opening Endoscopic (ICD-10-PCS; CPT 43239; principal; 2025-03-27 08:00)
DX: R13.14 Dysphagia, pharyngoesophageal phase (principal); K29.70 Gastritis, unspecified, without bleeding; K31.84 Gastroparesis; F17.210 Nicotine dependence, cigarettes, uncomplicated
CPT/HCPCS: 43239; 43450; 88305; J2704; J7120

== ENCOUNTER 2025-04-18 09:29 | Outpatient (CLI) | payer OTHER, SELFPAY ==
--- NOTE | ~2025-04-18 | NM_ITS ---
EXAM: NM gastric emptying study DATE: 04/18/2025 15:52 CDT INDICATION: Gastroesophageal reflux disease TECHNIQUE: A gastric emptying study was performed using the methodology of Payal AMBROCIO, et al. J Nucl Med 2007; 48:568-572. The patient was given a meal consisting of 2 scrambled eggs labeled with 0.917 mCi Tc-99m sulfur colloid, 2 slices of toast, two packages of jam, and approximately 120 mL of water . Simultaneous anterior and posterior 1-min images of the abdomen were obtained with the patient supi ne at multiple time points over a total period of 4 hours. The geometric mean of anterior and posteri or views was determined, and the percentage retention was calculated for each time point. COMPARISON: None. FINDINGS: Gastric retention of the radiotracer-labeled meal was 61%, 30%, and 3% at the 1-hour, 2-ho ur, and 4-hour time points, respectively. With this technique, apparent rapid gastric emptying is sug gested by <30% gastric retention at 1 hour. Delayed gastric emptying is defined by gastric retention of >90% at 1 hour, >60% retention at 2 hours, or >10% retention at 4 hours. IMPRESSION: 1. Normal gastric emptying. Reviewed, dictated and finalized at location A. IMPRESSION: 1. Normal gastric emptying.
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
--- OUTSIDE RECORDS SUMMARY | 2025-04-18 09:33 | XMS_ITS | Clinical Summary ---
Author Organization [facility] Address [address] [place] [address] Care Team Providers Care Technical Consultant Name Role Phone Jose Duncan MD Primary Care Provider [phone] Source Comments [facility],non-owned Affiliates and Associated Physician Practices is amultiple site organization consisting of ambulatory clinics and hospital sitesin [place], [place], [place] and [place]. This disclosure is being madepursuant to the Care Everywhere program and may not contain all information available regarding this patient. Last updated 18.[facility] Allergies No known active allergies Medications * [...] Active vitamin D, ergocalciferol, (Drisdol) 1.25 MG (94712 UT) capsuleIndicati ons:Low vitamin D level,Low folate [...] Node Dysfunction. DOI 08/24/2020-Dr Bal Hernandez. [facility] Remote transfer request submitted. 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 Chronic respiratory failure 11/01/2020 [...] pleural effusion Coronary artery disease invo lving [place] coronary artery of [place] heart without angina pectoris 07/31/2020 NSVT (nonsustained ventricular tachycardia) 07/13 Overview (04/11/2022): Last Assessment & Plan: - Cont home medications Added automatically from request for surgery [id number] Last Assessment & Plan: Has history of and has PPM - Cont BB as BP tolerates - flecainide continued Chronic fatigue 07/31/2020 SOB (shortness of breath) 07/31/2020 Bradycardia 07/31/2020 Benign prostatic hyperplasia with urinary obstru ction 12/30/2018 Overview (04/11/2022): Added automatically from request for surgery [id number] Headache syndrome, complicated 09/20/2017 Dyslipidemia 09/19/2017 Overview [...] Neuralgia 12/16/2012 Gout 05/21/2012 Rheumatoid arthritis of 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 Not on file Not [...] 200.7 cm (6' 7) 12/19/2022 10:50 AM HOUSE STEWARD/STEWARDESS Body Mass Index 27.83 12/19/2022 10:50 AM HOUSE STEWARD/STEWARDESS Plan of Treatment Health Maintenance Due Date [...] this topic Medical Devices Implanted Type Area Ultrasonic Welding Machine Operator Device Identifier Shelf Expiration Date Model / Serial / Lot Medtronic Pacemaker; Mri Conditional 1.5t Or 3t [id number] / [id number] / [place] [address] [id number] MEDICARE MANAGED CARE PLAN GENERIC MEDICARE ADV [facility] SELF PAY NO INSURANCE Member Subscriber Plan / Payer (Ef fective for All Dates) Name:Andrei Brown Member ID:Not on file Relation to Subscriber:Not on file Name:ANDREI BROWN Subscriber ID:Not on file (Home) Address: [address] [place] [id number] Payer ID:Not on file Group ID:Not on file Type:Self Pay Address: [place], [place] Care Teams Technical Consultant Relationship Specialty Start Date End Date Jose Duncan MD [address] [place] [id number] PCP - General 01/27/22
--- OUTSIDE RECORDS SUMMARY | 2025-04-18 09:33 | XMS_ITS | Clinical Summary ---
Author Organization [facility] Address [address] [place] [address] Care Team Providers Care Cleaning Staff Supervisor Name Role Phone Jose Duncan MD Primary Care Provider [phone] Allergies Active Allergy Reactions Criticality Noted Date [...] Bradycardia 07/31/2020 NSVT (nonsustained ventricul ar tachycardia) ([facility]) 07/31/2020 Coronary artery disease invo lving [place] coronary artery of [place] heart without angina pectoris 07/31/2020 SOB (shortness [...] Comments Blood Pressure 154/92 09/10/2020 1:09 PM CAD ADMINISTRATOR Pulse 93 09/10/2020 1:09 PM CAD ADMINISTRATOR Temperature 36.9 C (98.4 F) 06/04/2020 1:13 PM CDT Respiratory Rate 20 07/31/2020 12:00 PM CDT Oxygen Saturation 97% 09/10/2020 1:09 PM CAD ADMINISTRATOR Inhaled Oxygen Concentration - - Weight 110.7 kg (244 lb) 09/10/2020 1:09 PM CAD ADMINISTRATOR Height 200.7 cm (6' 7) 09/10/2020 1:09 PM CAD ADMINISTRATOR Body Mass Index 27.49 09/10/2020 1:09 PM CAD ADMINISTRATOR Plan of Treatment Health Maintenance Due Date [...] this topic Medical Devices Implanted Type Area Truck Railroad And Bus Motor Mechanic Device Identifier Shelf Expiration Date Model / Serial / Lot Ra Lead Implant-2019 Implanted:Qty: 1 on 08/24/2020 by Edwar Harry MD Lead Implant Right: Atrium [employer]TRONIC CARDIAC RHYTHM AND HEART FAILURE - DIV M 5076-52 / [id number] / Rv Lead Implant-2019 Implanted:Qty: 1 on 08/24/2020 by Edwar Harry MD Lead Implant Right: Ventricle [employer] CARDIAC RHYTHM AND HEART FAILURE - DIV M 5076-58 / [id number] / Kelli Xt Mri Pacemaker Medtronic-08/12 Implanted:08/12 by Edwar Harry MD (Quantity not on file) Chest [employer] [id number] / [id number] / Description:MRI Conditional under following conditions: [...] to C7, Supine or Prone only Insurance [facility] [place] [id number] [place] Care Teams Cleaning Staff Supervisor Relationship Specialty Start Date End Date Jose Duncan MD [address] [place] [address] PCP - General 07/02/24
--- OUTSIDE RECORDS SUMMARY | 2025-04-18 09:33 | XMS_ITS | Referral Summary ---
Author Organization [facility] Address [address] [place] [address] Care Team Providers Care Spot Checker Name Role Phone Jose Duncan MD Primary Care Provider [phone] Encounters Date Type Department Care Team Description 03/24/2025 Telephone [facility] Cardiology [address] [place] [address] [place] [phone] Sergey Chang MD 03/22/2025 1:30 PM CDT Office Visit [facility] Cardiology [address] [place] [address] [place] [phone] Sergey Chang MD PAD (peripheral artery disease) (Primary Dx); Status post angioplasty with stent; Paroxysmal atrial fibrillation (HCC); Presence of Amulet left atrial appendage closure device; SSS (sick sinus syndrome) (HCC); Presence of permanent cardiac pacemaker; Tobacco abuse 03/20/2025 Telephone [facility] Cardiology [address] [place] [address] [place] [phone] Sergey Chang MD 01/24/2025 Telephone [facility] Cardiology [address] [place] [address] [place] [phone] Sergey Chang MD 01/24/2025 1:00 PM CDT Ancillary Procedure [facility] Cardiology [address] [place] [address] [place] [phone] Cardiac pacemaker in situ [Z95.0] (Primary Dx); SSS (sick sinus syndrome) (HCC); Paroxysmal atrial fibrillation (HCC) 01/24/2025 1:00 PM CDT Office Visit [facility] Card[facility] [address] [place] [phone] Veronica Zapata NP Dyslipidemia (Primary Dx); Palpitations 01/23/2025 Telephone Cardiology Santana Tenea DO Aziza from Last 3 Months Allergies No known [...] needed 0 Active miscellaneous medical supply misc 2L/MARINE PILOT at night Activ e meclizine (ANTIVERT) 25 [...] months. Assessment & Plan (11/28/2024 10:39 AM MOLDING ASSOCIATE): Continue ASA Plavix and statin therapy. 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 - elevated to 2.27 on admission - received hydration and this AM has decreased to 1.53 - hold LETTY, oral potassium (home medication) - avoid hypotension and nephrotoxic medications. - Labs in AM Atelectasis 11/02/2020 Assessment & Plan (11/02/2020 8:09 AM MOLDING ASSOCIATE): - noted on post op CXR - very congested sounding cough - pul toileting today CVA (cerebral vascular accident) ([facility]) 11/01 Overview (12/04/2022): Last Assessment [...] fall Assessment & Plan (11/01/2020 5:15 PM MOLDING ASSOCIATE): high-grade stenosis noted at the left posterior [...] noted Assessment & Plan (11/01/2020 5:19 PM MOLDING ASSOCIATE): Hx COPD, home O2 use at night - Cont inhalers Chronic pain 11/01/2020 Overview (12/04/2022): Last Assessment & Plan: - CRYPTOGRAPHY TEACHER/epidural - cont neurontin Last Assessment & Plan: - cont medications - monitor Last Assessment & Plan: - CRYPTOGRAPHY TEACHER/epidural - cont neurontin Assessment & Plan (03/05/2021 5:19 PM CDT): - cont medications - monitor Assessment & Plan (02/06/2021 7:55 AM CDT): - cont medications - monitor Assessment & Plan (11/01/2020 5:22 PM MOLDING ASSOCIATE): - CRYPTOGRAPHY TEACHER/epidural - cont neurontin 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 Overview [...] effusion Assessment & Plan (11/01/2020 5:05 PM MOLDING ASSOCIATE): S/P plication of the diaphragm - Pain control-CRYPTOGRAPHY TEACHER/epidural - IVF - Jimenez - ADAT VT (ventricular tachycardia) 07/31/2020 Overview (12/04/2022): Last Assessment & Plan: Has history of and has PPM - Cont BB as BP tolerates - flecainide continued Last Assessment & Plan: - Cont home medications Added automatically from request for surgery [id number] Last Assessment & Plan: Has history of and has PPM - Cont BB as BP tolerates - flecainide continued Added automatically from request for surgery [id number] Assessment & Plan (03/05/2021 5:25 PM CDT): - Cont home medications Assessment & Plan (02/04/2021 11:44 PM CDT): Continue home flecainide Assessment & Plan (11/01/2020 5:16 PM MOLDING ASSOCIATE): Has history of and has PPM - Cont BB as BP tolerates - flecainide continued Bradycardia 07/31/2020 Other fatigue 07/31/2020 Coronary artery disease invo lving [place] coronary artery of [place] heart without angina pectoris 07/31/2020 SOB (shortness of breath) on exertion 07/31/2020 Headache syndrome, complicated 09/20/2017 Dyslipidemia 09/19/2017 Overview (12/04/2022): Last Assessment & Plan: Lipid panel and statin started Last Assessment & Plan: Lipid panel and statin started Assessment & Plan (01/06/2025 9:59 AM CDT): Stable continue Lipitor Assessment & Plan (11/28/2024 10:40 AM MOLDING ASSOCIATE): Stable continue Lipitor Dysuria 05/19/2017 Encounter for [...] (12/04/2022): Added automatically from request for surgery [id number] Added automatically from request for surgery [id number] Last Assessment & Plan: No obstructive symptoms now.. 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arthritis of [facility] with negative rheumatoid factor 01/30/2010 Dysthymic disorder 01/25/2010 Essential (primary) hypertension 04/06/2006 Overview (12/04/2022): Last Assessment & Plan: Monitor bp treat if sbp>220 Awaiting neurology recommendations Last Assessment & Plan: Monitor bp treat if sbp>220 Awaiting neurology recommendations Assessment & Plan (01/06/2025 9:59 AM CDT): Stable metoprolol Assessment & Plan (11/28/2024 10:40 AM MOLDING ASSOCIATE): Stable continue losartan 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 Cont to smoke [...] on file Legal Sex Male 3:54 AM MOLDING ASSOCIATE Gender Identity Not on file Sexual Orientation Not on file Last Filed Vital Signs Vital Sign Reading Time Taken Comments Blood Pressure 130/78 03/22/2025 1:49 PM CDT Pulse 90 03/22/2025 1:49 PM CDT Temperature 36.6 C (97.8 F) 10/24/2024 7:22 AM MOLDING ASSOCIATE Respiratory Rate 16 10/24/2024 7:22 AM MOLDING ASSOCIATE Oxygen Saturation 96% 03/22/2025 1:49 PM CDT Inhaled Oxygen Concentration - - Weight 109.3 kg (241 lb) 03/22/2025 1:49 PM CDT Height 200.7 cm (6' 7) 03/22/2025 1:49 PM CDT Body Mass Index 27.15 03/22/2025 1:49 PM CDT Plan of Treatment Not on file Medical Devices Implanted Type Area Cinder Dump Crane Operator Device Identifier Shelf Expiration Date Model / Serial / Lot [employer] Vascade Mvp 6-12fr Venous Closure [id number] - [id number] Implanted:Qty: 1 on 12/12/2022 by Sergey Chang MD at [facility] Right: Femoral Vein [employer] 08/26/2024 [id number] / / [id number] [employer] Percutaneous Transcatheter Amplatzer Amulet 25mm [id number] - [id number] Implanted:Qty: 1 on 12/12/2022 by Sergey Chang MD at [facility] Left Atrial Appendage Occluder Left: Atrial Appendage [employer] 06/11/2027 [id number] / / [id number] Pacemaker Chest [facility] Vascade Mvp 6-12fr Venous Closure [id number] - [id number] Implanted:Qty: 1 on 12/12/2022 by Sergey Chang MD at [facility] [id number] -[id number] / / [employer] Alem Epic Od9 Mm L40 Mm L110 Cm Otw Radiopaque Self Expand Iliac Artery L75 Cm Stent Vascular Nitinol Accepts .035 In Guidewire 6 Fr Introducer Sheath [id number] - [id number] Implanted:Qty: 1 on 10/24/2024 by Sergey Chang MD at [facility] [employer] 07/23/2025 [id number] / / [id number] Mynx Control 6-7fr 2 Mode Balloon Catheter Sealant Lock Syringe [id number] - [id number] Implanted:Qty: 1 on 10/24/2024 by Sergey Chang MD at [facility] [employer] 06/16/2026 [id number] / / [id number] Procedures Procedure Name Priority Date/Time Associated Diagnosis Comments ELECTROCARDIOGRAM REPORT Routine 03/22/2025 PAD (peripheral artery disease) Paroxysmal atrial fibrillation (HCC) DEVICE CHECK - REMOTE Routine 01/24/2025 3:32 PM CDT SSS (sick sinus syndrome) (HCC) Paroxysmal atrial fibrillation (HCC) POCT LIPID PANEL Routine 01/24/2025 3:15 PM CDT Dyslipidemia CTA ABDOMINAL AORTA AND BILATERAL ILIOFEMORAL RUNOFF Schedule Routine, Read Routine (OP Routine) 09/26/2024 3:21 PM MOLDING ASSOCIATE Claudication PAD (peripheral artery disease) from Last [...] and sensing thresholds. Presenting rhythm: AP-VS. AP-95%, MAINTENANCE JOB TITLES-<0.1%. 1 AT/AF episode noted, 30 minutes on 01/14/2025. IEGM demonstrates Afib with v-rate up to 153 bpm. AF [place] <0.1%. 5 Fast A&V episodes noted, iegm's [...] And Bilateral Iliofemoral Runoff (09/26/2024 3:21 PM MOLDING ASSOCIATE) Anatomical Region Laterality Modality Body Bilateral Computed Tomogra phy 09/26/2024 4:04 PM MOLDING ASSOCIATE Impressions 09/26/2024 4:04 PM MOLDING ASSOCIATE 1. ATHEROSCLEROTIC CHANGES IN THE ABDOMINAL AORTA [...] Jose Traylor M.D. Narrative 09/26/2024 4:04 PM MOLDING ASSOCIATE EXAMINATION: CTA ABDOMINAL AORTA AND BILATERAL ILIOFEMORAL [...] FIBULA. Electronically signed by: Jose Traylor M.D. us Sergey Chang MD IMG CT PROCEDURES Final Result from Last 3 Months or Most Recently Relevant to Health Maintenance Insurance [facility] Advance Directives For more information, please contact: [phone] * Full Code (Latest Code Status on File) Date Activated Date Inactivated Comments 03/05/2021 4:15 PM 03/06/2021 4:31 PM * Full Code Date Activated Date Inactivated Comments 02/04/2021 9:07 PM 02/08/2021 7:11 PM * Full Code Date Activated Date Inactivated Comments 11/01/2020 4:59 PM 11/04/2020 5:52 PM Care Teams Spot Checker Relationship Specialty Start Date End Date Jose Duncan MD PCP - General Family Practice 06/05/21
--- OUTSIDE RECORDS SUMMARY | 2025-04-18 09:33 | XMS_ITS | Encounter Summary ---
Author Organization [facility] Address [address] [place] [address] Care Team Providers Care School Bus Operator Name Role Phone Kermit Hernandez MD Primary Care Provider [phone] Jose Duncan MD Primary Care Provider [phone] Encounter Details Date Type Department Care Team (Late st Contact Info) Description 02/08/2021 [place] Message Enc [facility] [place] [address] [place] [address] Jodie Hunt NP [address] [place] [address] RE: Follow Up/Update Social History [...] on filedocumented in this encounter Care Teams School Bus Operator Relationship Specialty Start Date End Date Kermit Hernandez MD PCP - General FAMILY PRACTICE 09/21/17 07/01/24 Jose Duncan MD [address] [place] [address] PCP - General 07/02/24 documented as of this encounter
== END 2025-04-18 09:30 | disposition home or self-care (01) ==
PROVIDERS: PCP Family Medicine; Visit Provider Internal Medicine Gastroenterology
DX: K21.9 Gastro-esophageal reflux disease without esophagitis (principal); R13.14 Dysphagia, pharyngoesophageal phase
CPT/HCPCS: 78264; A9541

== ENCOUNTER 2025-06-05 12:08 | Outpatient (CLI) | payer OTHER, SELFPAY ==
--- OUTSIDE RECORDS SUMMARY | 2025-06-05 12:26 | XMS_ITS | Encounter Summary ---
Author Organization [facility] Address [address] [place] [address] Care Team Providers Care E Commerce Manager Name Role Phone Kermit Hernandez MD Primary Care Provider [phone] Jose Duncan MD Primary Care Provider [phone] Encounter Details Date Type Department Care Team (Late st Contact Info) Description 02/08/2021 [employer] Message Enc [facility] [address] [place] [phone] Jodie Hunt NP [address] [place] [address] RE: Follow Up/Update Social History [...] on filedocumented in this encounter Care Teams E Commerce Manager Relationship Specialty Start Date End Date Kermit Hernandez MD PCP - General FAMILY PRACTICE 09/21/17 07/01/24 Jose Duncan MD [address] [place] [address] PCP - General 07/02/24 documented as of this encounter
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
--- OUTSIDE RECORDS SUMMARY | 2025-06-05 12:26 | XMS_ITS | Clinical Summary ---
Author Organization [facility] Address [address] [place] [address] Care Team Providers Care Manifold Builder Name Role Phone Jose Duncan MD Primary Care Provider [phone] Allergies Active Allergy Reactions Criticality Noted Date [...] Bradycardia 07/31/2020 NSVT (nonsustained ventricul ar tachycardia) ([facility]) 07/31/2020 Coronary artery disease invo lving [place] coronary artery of [place] heart without angina pectoris 07/31/2020 SOB (shortness [...] Comments Blood Pressure 154/92 09/10/2020 1:09 PM TELEVISION CAMERAMAN Pulse 93 09/10/2020 1:09 PM TELEVISION CAMERAMAN Temperature 36.9 C (98.4 F) 06/04/2020 1:13 PM CDT Respiratory Rate 20 07/31/2020 12:00 PM CDT Oxygen Saturation 97% 09/10/2020 1:09 PM TELEVISION CAMERAMAN Inhaled Oxygen Concentration - - Weight 110.7 kg (244 lb) 09/10/2020 1:09 PM TELEVISION CAMERAMAN Height 200.7 cm (6' 7) 09/10/2020 1:09 PM TELEVISION CAMERAMAN Body Mass Index 27.49 09/10/2020 1:09 PM TELEVISION CAMERAMAN Plan of Treatment Health Maintenance Due Date [...] this topic Medical Devices Implanted Type Area Lockstitch Waistband Setter Device Identifier Shelf Expiration Date Model / Serial / Lot Ra Lead Implant-2019 Implanted:Qty: 1 on 08/24/2020 by Edwar Harry MD Lead Implant Right: Atrium MEDTRONIC CARDIAC RHYTHM AND HEART FAILURE - DIV M 5076-52 / [id number] / Rv Lead Implant-2019 Implanted:Qty: 1 on 08/24/2020 by Edwar Harry MD Lead Implant Right: Ventricle MEDTRONIC CARDIAC RHYTHM AND HEART FAILURE - DIV M 5076-58 / [id number] / [place] Xt Mri Pacemaker Medtronic-08/12 Implanted:08/12 by Edwar Harry MD (Quantity not on file) Chest [employer]k INC [id number] / [id number] / Description:MRI Conditional under following conditions: [...] to C7, Supine or Prone only Insurance [facility] [place] [id number] [place] Care Teams Manifold Builder Relationship Specialty Start Date End Date Jose Duncan MD [address] [place] [address] PCP - General 07/02/24
--- OUTSIDE RECORDS SUMMARY | 2025-06-05 12:26 | XMS_ITS | Clinical Summary ---
Author Organization [facility] Address [address] [place] [address] Care Team Providers Care Weight Checker Name Role Phone Jose Duncan MD Primary Care Provider [phone] Source Comments [facility],non-owned Affiliates and Associated Physician Practices is amultiple site organization consisting of ambulatory clinics and hospital sitesin [place], [place], [place] and [place]. This disclosure is being madepursuant to the Care Everywhere program and may not contain all information available regarding this patient. Last updated 18.[facility] Allergies No known active allergies Medications * [...] Active vitamin D, ergocalciferol, (Drisdol) 1.25 MG (40192 UT) capsuleIndicati ons:Low vitamin D level,Low folate [...] Sinus Node Dysfunction. DOI 08/24/2020-Dr Bal Hernandez. [facility] Remote transfer request submitted. 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 Chronic respiratory failure 11/01/2020 [...] medications Added automatically from request for surgery [id number] Last Assessment & Plan: Has history of and has PPM - Cont BB as BP tolerates - flecainide continued Chronic fatigue 07/31/2020 SOB (shortness of breath) 07/31/2020 Bradycardia 07/31/2020 Benign prostatic hyperplasia with urinary obstru ction 12/30/2018 Overview (04/11/2022): Added automatically from request for surgery [id number] Headache syndrome, complicated 09/20/2017 Dyslipidemia 09/19/2017 Overview [...] Neuralgia 12/16/2012 Gout 05/21/2012 Rheumatoid arthritis [facility] with negative rheumatoid factor 01/30/2010 [...] Date Smoking Tobacco: Every Day Cigarettes 2 54.6 Started: 1970 Smokeless Tobacco: Current Chew Comments:quit [...] on file Legal Sex Male 11:59 AM CIVIL DESIGNER Gender Identity Not on file Sexual Orientation Not on file 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 Date Job End Date 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 Not on file [...] 200.7 cm (6' 7) 12/19/2022 10:50 AM CIVIL DESIGNER Body Mass Index 27.83 12/19/2022 10:50 AM CIVIL DESIGNER Plan of Treatment Health Maintenance Due Date [...] history exists DEPRESSION SCREENING 10/12/2024 INFLUENZA VACCINE (#1) 2025 0, 06/12/2020, 08/15/2019, Additional history exists DTAP/TDAP/TD VACCINES (2 - Td or Tdap) 01/21/2028 01/20/2018 SCREENING FOR DIABETES 01/25/2028 5, 12/13/2022, 12/13/2022, Additional history exists HEPATITIS B VACCINE Aged Out No longe [...] this topic Medical Devices Implanted Type Area Shot Core Drill Operator Device Identifier Shelf Expiration Date Model / Serial / Lot Medtronic Pacemaker; Mri Conditional 1.5t Or 3t [id number] / [id number] / Insurance MEDICARE MANAGED CARE PLAN GENERIC MEDICARE ADV [facility] SELF PAY NO INSURANCE Member Subscriber Plan / Payer (Ef fective for All Dates) Name:Andrei Brown Member ID:Not on file Relation to Subscriber:Not on file Name:ANDREI BROWN Subscriber ID:Not on file (Home) Address: [address] [place] [phone] Payer ID:Not on file Group ID:Not on file Type:Self Pay Address: [place], [place] Care Teams Weight Checker Relationship Specialty Start Date End Date Jose Duncan MD [address] [place] [phone] PCP - General 01/27/22
[2025-06-05 12:40] LABS: Add Urine Microscopic? NO; Appearance Urine Clear (Clear); Glucose Urine UA Negative (Negative); Leukocyte Esterase Ur Negative LEU/UL (Negative); Nitrate Urine Negative (Negative); Specific Grav Ur 1.010 (1.001-1.035)
== END 2025-06-05 12:09 | disposition home or self-care (01) ==
LOC: ANHLAB 12:11
PROVIDERS: PCP Family Medicine; Visit Provider Family Medicine
DX: N30.90 Cystitis, unspecified without hematuria (principal)
CPT/HCPCS: 81003; 87086